=== PATIENT | male | born 1935 | race Caucasian/White ===

== ENCOUNTER 2016-07-13 12:53 | Inpatient (IN) ==
[2016-07-13] MEDS ORDERED: *HR* Heparin 5,000 UNIT/ML VIAL IVP ONE (14:05)
[2016-07-13] MEDS ORDERED: *HR* Heparin 5,000 UNIT/ML VIAL IVP PRN ×2 (14:05)
[2016-07-13 14:24] LABS: Hematocrit 36.8 % (37.5-50.1); Hemoglobin 12.5 g/dL (12.9-16.9); Mean Corpuscular Hemoglobin 28.5 pg (28.0-33.3); Mean Platelet Volume 9.5 fL (9.4-12.4); Platelet Count 230 K/mcL (140-400); Red Blood Count 4.38 M/mcL (4.19-5.50); Red Cell Distribution Width 13.4 % (11.5-14.5)
[2016-07-13] MEDS: Heparin 25,000 UNIT/500 ML D5W 25,000 UNIT/500 ML MLS IVC SCH (14:26)
[2016-07-13 14:30] LABS: INR 1.1; Prothrombin Time 12.2 Seconds (9.4-12.1)
[2016-07-13 14:33] LABS: Activated Partial Thrombo Time 30.8 Seconds (26.0-36.0)
--- NOTE | 2016-07-13 14:42 | Emergency Department Note ---
Disposition Clinical Impression: Left ventricular thrombus Disposition: Admitted As Inpatient Condition: Good General Adult HPI - General Chief complaint: ED Recheck/Abnormal Lab/Rx Stated complaint: Blood clot in heart Time Seen by Provider: 07/13/16 13:46 Source: patient Mode of arrival: EMS Limitations: no limitations Nursing Notes Reviewed: Yes Vital Signs Reviewed: Yes - History of Present Illness HPI Narrative: 80-year-old male presents to the ER with a chief complaint of abnormal echocardiogram. Patient reports that at the end of last year he was having some heartburn sensation and his correspondence school instructor had him perform a stress test. reports that was abnormal so that prompted an echocardiogram as well as a heart catheterization. Patient had that done in April without stent placement. He reports today he was having a repeat echocardiogram. At that time the patient was told that he had a clot in his heart and was going to be transferred here for admission. Patient reports that he has been short of breath but this is not outside of his normal for the last year. He denies any chest pain. No recent illnesses. He is not on any anticoagulation. He takes a daily aspirin. He denies any recent bleeding. No other complaints. 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 Denies: chest pain, cough, nausea/vomiting Treatments Prior to Arrival: none - Related Data Home Medications Medication Instructions Recorded Confirmed Esomeprazole Magnesium [Nexium] 40 mg PO DAILY PRN 05/07/15 07/13/16 Finasteride [Proscar] 5 mg PO DAILY 05/07/15 07/13/16 Gluc/Minh-MSM#1/C/Mac/Hima/Bor 1 each PO BID 05/07/15 07/13/16 [Osteo Bi-Flex Caplet] Insulin ASPART [NovoLOG] 7 - 12 unit SQ TIDAC 05/07/15 07/13/16 Insulin Glargine,Hum.rec.anlog 47 unit SQ HS 05/07/15 07/13/16 [Lantus Solostar] Lisinopril-HCTZ 20-12.5 [Prinzide 1 each PO BID 05/07/15 07/13/16 20-12.5] Metoprolol XL (24 HR) Succ [Toprol 25 mg PO DAILY 05/07/15 07/13/16 Xl] Tamsulosin [Flomax] 0.8 mg PO DAILY 05/07/15 07/13/16 Aspirin Enteric Coated [Aspirin EC] 81 mg PO DAILY 07/13/16 07/13/16 Multivitamin [Multi-Day Vitamins] 1 each PO DAILY 07/13/16 07/13/16 Polyethylene Glycol 3350 17 gm PO DAILY 07/13/16 07/13/16 [Smoothlax] Previous Rx's Medication Instructions Recorded Isosorbide MONOnitrate (24 HR) 30 mg PO DAILY tab.er.24h 05/07/15 [Imdur] Nitroglycerin 0.4 mg SL Q5MIN PRN #0 tab.subl 05/07/15 Warfarin [Coumadin] 5 mg PO DAILY@1800 #30 tablet 07/18/16 Allergies Allergy/AdvReac Type Severity Reaction Status Date / Time ceftriaxone [From Rocephin] AdvReac Hives Verified 04/29/15 10:16 simvastatin AdvReac Muscle Pain Verified 05/07/15 07:36 All systems ED: reviewed and negative except as stated. Constitutional: Denies: fever Cardiovascular: Denies: chest pain Respiratory: Reports: dyspnea. Denies: cough Gastrointestinal: Denies: abdominal pain, nausea, vomiting Musculoskeletal: Denies: back pain, neck pain Past Medical History - Past Medical History Attestation: Yes The following information was validated with the patient. Source: patient Medical history: Reports: diabetes, hyperlipidemia, hypertension, myocardial infarction Surgical history: Reports: cholecystectomy Psychiatric history: Reports: no psych history - Social History Smoking Status: Former smoker Smokeless Tobacco Status: No Alcohol use: Reports: none Drug use: Reports: none Physical Exam - General Limitations: no limitations General appearance: alert, in no apparent distress - Head Head exam: atraumatic, normocephalic, normal inspection - Eye Eye exam: Present: normal appearance, EOMI - ENT ENT exam: normal exam - Neck Neck exam: Present: normal inspection - Chest Chest inspection: Present: normal inspection, symmetric chest wall rise - Respiratory Respiratory exam: Present: normal lung sounds bilaterally - Cardiovascular Cardiovascular exam: Present: regular rate, normal rhythm, normal heart sounds - Abdominal Exam Abdominal exam: Present: soft, Non-Tender. Absent: tenderness - Extremities Exam Extremities exam: Present: normal inspection, full ROM - Expanded Upper Extremity Exam Shoulder exam: Present: normal inspection, full ROM Arm exam: Present: normal inspection, full ROM Elbow exam: Present: normal inspection, full ROM Forearm/Wrist exam: Present: normal inspection, full ROM Hand exam: Present: normal inspection, full ROM - Expanded Lower Extremity Exam Hip/Pelvis exam: Present: normal inspection, full ROM Upper leg exam: Present: normal inspection, full ROM Knee exam: Present: normal inspection, full ROM Lower leg exam: Present: normal inspection, full ROM Ankle exam: Present: normal inspection, full ROM Foot/toe exam: Present: normal inspection, full ROM - Neurological Exam Neurological exam: Present: alert - Psychiatric Psychiatric exam: Present: normal affect, normal mood - Skin Skin exam: Present: warm, dry, intact, normal color Course Course Narrative: Patient seen and examined. Vital signs reviewed. We will get an EKG, speak with cardiology and likely initiate a heparin drip. - Consultations Consultation #1: Case discussed with the on-call correspondence school instructor Dr. Vazquez. Discussed patient's recent echocardiogram and EKG. He reports to place the patient on a heparin drip and admit to the hospitalist service. They Will see the patient in consultation. Vital Signs Temperature 97.7 F 07/13/16 12:58 Pulse Rate 76 07/13/16 12:58 Respiratory Rate 16 07/13/16 12:58 Blood Pressure 154/81 07/13/16 12:58 O2 Sat by Pulse Oximetry 98 07/13/16 12:58 Temperature 98.2 F 07/18/16 08:14 Pulse Rate 56 07/18/16 08:14 Respiratory Rate 18 07/18/16 08:14 Blood Pressure 114/53 07/18/16 08:14 O2 Sat by Pulse Oximetry 96 07/18/16 08:14 Oxygen Delivery Oxygen Delivery Room Air Medical Decision Making - MDM Narrative Medical decision making narrative: 80-year-old male presents to the ER after abnormal outpatient echocardiogram. Patient was sent here after they found a thrombus in his left ventricle. He denies any history of hypercoagulable state. He is not on any anticoagulation. He reports shortness of breath which is chronic. EKG here is sinus rhythm. I discussed the case with cardiology. Patient placed on a heparin drip and admitted to the hospitalist service. - Lab Data Lab results reviewed: Yes I reviewed the patient's lab results. Result diagrams: 07/18/16 06:28 07/18/16 06:28 Lab Results 07/13/16 07/13/16 07/13/16 Range/Units 13:27 14:18 14:18 WBC 8.2 (4.3-11.1) K/mcL RBC 4.38 (4.19-5.50) M/mcL Hgb 12.5 L (12.9-16.9) g/dL Hct 36.8 L (37.5-50.1) % MCV 84.0 (83.0-100.0) fL MCH 28.5 (28.0-33.3) pg MCHC 34.0 (31.6-35.5) g/dL RDW 13.4 (11.5-14.5) % Plt Count 230 (140-400) K/mcL MPV 9.5 (9.4-12.4) fL Immature Gran % (0-4) % Seg Neutrophils % % Lymphocytes % % Monocytes % % Eosinophils % % Basophils % % Neutrophils # (1.6-8.9) K/mcL Lymphocytes # (0.6-4.6) K/mcL Monocytes # (0.0-1.3) K/mcL Eosinophils # (0.0-0.6) K/mcL Basophils # (0.0-0.2) K/mcL Immature Plt Fraction (1.1-6.1) % PT 12.2 H (9.4-12.1) Seconds INR 1.1 APTT 30.8 (26.0-36.0) Seconds Sodium (136-145) mEq/L Potassium (3.5-4.5) mEq/L Chloride (98-109) mEq/L Carbon Dioxide (19-29) mEq/L BUN (8-26) mg/dL Creatinine (0.72-1.25) mg/dL Est GFR ( Amer) (> 60) Est GFR (Non-Af Amer) (> 60) BUN/Creatinine Ratio (6-26) Glucose (70-99) mg/dL POC Glucose 226 H (58-89) Est Mean Plasma Glucose mg/dl Hemoglobin A1c ( - 5.6) % Calculated Osmolality (280-300) Calcium (8.6-10.8) mg/dL Magnesium (1.6-2.6) mg/dL Urine Color (Yellow) Urine Clarity (Clear) Urine pH (5.0-8.0) pH Units Ur Specific [place] (1.010-1.025) Urine Protein (Neg-Trace) mg/dL Urine Glucose (UA) (Normal) mg/dL Urine Ketones (Negative) mg/dL Urine Blood (Negative) Urine Nitrite (Negative) Urine Bilirubin (Negative) Urine Urobilinogen (Normal) mg/dL Ur Leukocyte Esterase (Negative) Urine Microscopic RBC (0-3) per hpf Urine Microscopic WBC (0-3) per hpf Ur Squamous Epith Cells (None-Few) per lpf Urine Bacteria (None-Few) per hpf Hyaline Casts (None-Few) per lpf Ur Culture Indicated? (NO) Blood Type Antibody Screen 07/13/16 07/13/16 07/13/16 Range/Units 18:24 21:22 21:33 WBC (4.3-11.1) K/mcL RBC (4.19-5.50) M/mcL Hgb (12.9-16.9) g/dL Hct (37.5-50.1) % MCV (83.0-100.0) fL MCH (28.0-33.3) pg MCHC (31.6-35.5) g/dL RDW (11.5-14.5) % Plt Count (140-400) K/mcL MPV (9.4-12.4) fL Immature Gran % (0-4) % Seg Neutrophils % % Lymphocytes % % Monocytes % % Eosinophils % % Basophils % % Neutrophils # (1.6-8.9) K/mcL Lymphocytes # (0.6-4.6) K/mcL Monocytes # (0.0-1.3) K/mcL Eosinophils # (0.0-0.6) K/mcL Basophils # (0.0-0.2) K/mcL Immature Plt Fraction (1.1-6.1) % PT (9.4-12.1) Seconds INR APTT 40.5 H (26.0-36.0) Seconds Sodium (136-145) mEq/L Potassium (3.5-4.5) mEq/L Chloride (98-109) mEq/L Carbon Dioxide (19-29) mEq/L BUN (8-26) mg/dL Creatinine (0.72-1.25) mg/dL Est GFR ( Amer) (> 60) Est GFR (Non-Af Amer) (> 60) BUN/Creatinine Ratio (6-26) Glucose (70-99) mg/dL POC Glucose 256 H 259 H (58-89) Est Mean Plasma Glucose mg/dl Hemoglobin A1c ( - 5.6) % Calculated Osmolality (280-300) Calcium (8.6-10.8) mg/dL Magnesium (1.6-2.6) mg/dL Urine Color (Yellow) Urine Clarity (Clear) Urine pH (5.0-8.0) pH Units Ur Specific [place] (1.010-1.025) Urine Protein (Neg-Trace) mg/dL Urine Glucose (UA) (Normal) mg/dL Urine Ketones (Negative) mg/dL Urine Blood (Negative) Urine Nitrite (Negative) Urine Bilirubin (Negative) Urine Urobilinogen (Normal) mg/dL Ur Leukocyte Esterase (Negative) Urine Microscopic RBC (0-3) per hpf Urine Microscopic WBC (0-3) per hpf Ur Squamous Epith Cells (None-Few) per lpf Urine Bacteria (None-Few) per hpf Hyaline Casts (None-Few) per lpf Ur Culture Indicated? (NO) Blood Type Antibody Screen 07/13/16 07/14/16 07/14/16 Range/Units 21:33 02:29 05:44 WBC 10.6 (4.3-11.1) K/mcL RBC 4.54 (4.19-5.50) M/mcL Hgb 13.1 (12.9-16.9) g/dL Hct 38.1 (37.5-50.1) % MCV 83.9 (83.0-100.0) fL MCH 28.9 (28.0-33.3) pg MCHC 34.4 (31.6-35.5) g/dL RDW 13.5 (11.5-14.5) % Plt Count 233 (140-400) K/mcL MPV 10.2 (9.4-12.4) fL Immature Gran % 0.4 (0-4) % Seg Neutrophils % 80.2 % Lymphocytes % 9.3 % Monocytes % 8.0 % Eosinophils % 1.4 % Basophils % 0.7 % Neutrophils # 8.5 (1.6-8.9) K/mcL Lymphocytes # 1.0 (0.6-4.6) K/mcL Monocytes # 0.9 (0.0-1.3) K/mcL Eosinophils # 0.2 (0.0-0.6) K/mcL Basophils # 0.1 (0.0-0.2) K/mcL Immature Plt Fraction (1.1-6.1) % PT (9.4-12.1) Seconds INR APTT (26.0-36.0) Seconds Sodium (136-145) mEq/L Potassium (3.5-4.5) mEq/L Chloride (98-109) mEq/L Carbon Dioxide (19-29) mEq/L BUN (8-26) mg/dL Creatinine (0.72-1.25) mg/dL Est GFR ( Amer) (> 60) Est GFR (Non-Af Amer) (> 60) BUN/Creatinine Ratio (6-26) Glucose (70-99) mg/dL POC Glucose (58-89) Est Mean Plasma Glucose 160 mg/dl Hemoglobin A1c 7.2 H ( - 5.6) % Calculated Osmolality (280-300) Calcium (8.6-10.8) mg/dL Magnesium (1.6-2.6) mg/dL Urine Color Yellow (Yellow) Urine Clarity Turbid A (Clear) Urine pH 7.0 (5.0-8.0) pH Units Ur Specific [place] 1.009 L (1.010-1.025) Urine Protein Trace (Neg-Trace) mg/dL Urine Glucose (UA) 250 H (Normal) mg/dL Urine Ketones Negative (Negative) mg/dL Urine Blood Moderate H (Negative) Urine Nitrite Negative (Negative) Urine Bilirubin Negative (Negative) Urine Urobilinogen Normal (Normal) mg/dL Ur Leukocyte Esterase Large H (Negative) Urine Microscopic RBC TNTC H (0-3) per hpf Urine Microscopic WBC TNTC H (0-3) per hpf Ur Squamous Epith Cells None Seen (None-Few) per lpf Urine Bacteria Moderate H (None-Few) per hpf Hyaline Casts None Seen (None-Few) per lpf Ur Culture Indicated? YES A (NO) Blood Type Antibody Screen 07/14/16 07/14/16 07/14/16 Range/Units 05:44 05:44 07:12 WBC (4.3-11.1) K/mcL RBC (4.19-5.50) M/mcL Hgb (12.9-16.9) g/dL Hct (37.5-50.1) % MCV (83.0-100.0) fL MCH (28.0-33.3) pg MCHC (31.6-35.5) g/dL RDW (11.5-14.5) % Plt Count (140-400) K/mcL MPV (9.4-12.4) fL Immature Gran % (0-4) % Seg Neutrophils % % Lymphocytes % % Monocytes % % Eosinophils % % Basophils % % Neutrophils # (1.6-8.9) K/mcL Lymphocytes # (0.6-4.6) K/mcL Monocytes # (0.0-1.3) K/mcL Eosinophils # (0.0-0.6) K/mcL Basophils # (0.0-0.2) K/mcL Immature Plt Fraction (1.1-6.1) % PT (9.4-12.1) Seconds INR APTT 63.9 H D (26.0-36.0) Seconds Sodium 129 L (136-145) mEq/L Potassium 3.8 (3.5-4.5) mEq/L Chloride 96 L (98-109) mEq/L Carbon Dioxide 20 (19-29) mEq/L BUN 11 (8-26) mg/dL Creatinine 1.00 (0.72-1.25) mg/dL Est GFR ( Amer) > 60 (> 60) Est GFR (Non-Af Amer) > 60 (> 60) BUN/Creatinine Ratio 11 (6-26) Glucose 217 H (70-99) mg/dL POC Glucose 189 H (58-89) Est Mean Plasma Glucose mg/dl Hemoglobin A1c ( - 5.6) % Calculated Osmolality 274 L (280-300) Calcium 9.5 (8.6-10.8) mg/dL Magnesium 1.5 L (1.6-2.6) mg/dL Urine Color (Yellow) Urine Clarity (Clear) Urine pH (5.0-8.0) pH Units Ur Specific [place] (1.010-1.025) Urine Protein (Neg-Trace) mg/dL Urine Glucose (UA) (Normal) mg/dL Urine Ketones (Negative) mg/dL Urine Blood (Negative) Urine Nitrite (Negative) Urine Bilirubin (Negative) Urine Urobilinogen (Normal) mg/dL Ur Leukocyte Esterase (Negative) Urine Microscopic RBC (0-3) per hpf Urine Microscopic WBC (0-3) per hpf Ur Squamous Epith Cells (None-Few) per lpf Urine Bacteria (None-Few) per hpf Hyaline Casts (None-Few) per lpf Ur Culture Indicated? (NO) Blood Type Antibody Screen 07/14/16 07/14/16 07/14/16 Range/Units 11:03 11:11 16:37 WBC (4.3-11.1) K/mcL RBC (4.19-5.50) M/mcL Hgb (12.9-16.9) g/dL Hct (37.5-50.1) % MCV (83.0-100.0) fL MCH (28.0-33.3) pg MCHC (31.6-35.5) g/dL RDW (11.5-14.5) % Plt Count (140-400) K/mcL MPV (9.4-12.4) fL Immature Gran % (0-4) % Seg Neutrophils % % Lymphocytes % % Monocytes % % Eosinophils % % Basophils % % Neutrophils # (1.6-8.9) K/mcL Lymphocytes # (0.6-4.6) K/mcL Monocytes # (0.0-1.3) K/mcL Eosinophils # (0.0-0.6) K/mcL Basophils # (0.0-0.2) K/mcL Immature Plt Fraction (1.1-6.1) % PT (9.4-12.1) Seconds INR APTT 63.3 H (26.0-36.0) Seconds Sodium (136-145) mEq/L Potassium (3.5-4.5) mEq/L Chloride (98-109) mEq/L Carbon Dioxide (19-29) mEq/L BUN (8-26) mg/dL Creatinine (0.72-1.25) mg/dL Est GFR ( Amer) (> 60) Est GFR (Non-Af Amer) (> 60) BUN/Creatinine Ratio (6-26) Glucose (70-99) mg/dL POC Glucose 202 H 256 H (58-89) Est Mean Plasma Glucose mg/dl Hemoglobin A1c ( - 5.6) % Calculated Osmolality (280-300) Calcium (8.6-10.8) mg/dL Magnesium (1.6-2.6) mg/dL Urine Color (Yellow) Urine Clarity (Clear) Urine pH (5.0-8.0) pH Units Ur Specific [place] (1.010-1.025) Urine Protein (Neg-Trace) mg/dL Urine Glucose (UA) (Normal) mg/dL Urine Ketones (Negative) mg/dL Urine Blood (Negative) Urine Nitrite (Negative) Urine Bilirubin (Negative) Urine Urobilinogen (Normal) mg/dL Ur Leukocyte Esterase (Negative) Urine Microscopic RBC (0-3) per hpf Urine Microscopic WBC (0-3) per hpf Ur Squamous Epith Cells (None-Few) per lpf Urine Bacteria (None-Few) per hpf Hyaline Casts (None-Few) per lpf Ur Culture Indicated? (NO) Blood Type Antibody Screen 07/14/16 07/14/16 07/14/16 Range/Units 21:31 22:11 22:11 WBC 8.5 (4.3-11.1) K/mcL RBC 4.47 (4.19-5.50) M/mcL Hgb 12.9 (12.9-16.9) g/dL Hct 36.9 L (37.5-50.1) % MCV 82.6 L (83.0-100.0) fL MCH 28.9 (28.0-33.3) pg MCHC 35.0 (31.6-35.5) g/dL RDW 13.3 (11.5-14.5) % Plt Count 248 (140-400) K/mcL MPV 10.0 (9.4-12.4) fL Immature Gran % 0.4 (0-4) % Seg Neutrophils % 68.1 % Lymphocytes % 16.9 % Monocytes % 9.8 % Eosinophils % 4.1 % Basophils % 0.7 % Neutrophils # 5.8 (1.6-8.9) K/mcL Lymphocytes # 1.4 (0.6-4.6) K/mcL Monocytes # 0.8 (0.0-1.3) K/mcL Eosinophils # 0.4 (0.0-0.6) K/mcL Basophils # 0.1 (0.0-0.2) K/mcL Immature Plt Fraction 3.0 (1.1-6.1) % PT (9.4-12.1) Seconds INR APTT 54.5 H (26.0-36.0) Seconds Sodium (136-145) mEq/L Potassium (3.5-4.5) mEq/L Chloride (98-109) mEq/L Carbon Dioxide (19-29) mEq/L BUN (8-26) mg/dL Creatinine (0.72-1.25) mg/dL Est GFR ( Amer) (> 60) Est GFR (Non-Af Amer) (> 60) BUN/Creatinine Ratio (6-26) Glucose (70-99) mg/dL POC Glucose 309 H (58-89) Est Mean Plasma Glucose mg/dl Hemoglobin A1c ( - 5.6) % Calculated Osmolality (280-300) Calcium (8.6-10.8) mg/dL Magnesium (1.6-2.6) mg/dL Urine Color (Yellow) Urine Clarity (Clear) Urine pH (5.0-8.0) pH Units Ur Specific [place] (1.010-1.025) Urine Protein (Neg-Trace) mg/dL Urine Glucose (UA) (Normal) mg/dL Urine Ketones (Negative) mg/dL Urine Blood (Negative) Urine Nitrite (Negative) Urine Bilirubin (Negative) Urine Urobilinogen (Normal) mg/dL Ur Leukocyte Esterase (Negative) Urine Microscopic RBC (0-3) per hpf Urine Microscopic WBC (0-3) per hpf Ur Squamous Epith Cells (None-Few) per lpf Urine Bacteria (None-Few) per hpf Hyaline Casts (None-Few) per lpf Ur Culture Indicated? (NO) Blood Type Antibody Screen 07/15/16 07/15/16 07/15/16 Range/Units 00:23 00:23 00:23 WBC (4.3-11.1) K/mcL RBC (4.19-5.50) M/mcL Hgb (12.9-16.9) g/dL Hct (37.5-50.1) % MCV (83.0-100.0) fL MCH (28.0-33.3) pg MCHC (31.6-35.5) g/dL RDW (11.5-14.5) % Plt Count (140-400) K/mcL MPV (9.4-12.4) fL Immature Gran % (0-4) % Seg Neutrophils % % Lymphocytes % % Monocytes % % Eosinophils % % Basophils % % Neutrophils # (1.6-8.9) K/mcL Lymphocytes # (0.6-4.6) K/mcL Monocytes # (0.0-1.3) K/mcL Eosinophils # (0.0-0.6) K/mcL Basophils # (0.0-0.2) K/mcL Immature Plt Fraction (1.1-6.1) % PT 12.9 H (9.4-12.1) Seconds INR 1.2 APTT 30.3 (26.0-36.0) Seconds Sodium (136-145) mEq/L Potassium (3.5-4.5) mEq/L Chloride (98-109) mEq/L Carbon Dioxide (19-29) mEq/L BUN (8-26) mg/dL Creatinine (0.72-1.25) mg/dL Est GFR ( Amer) (> 60) Est GFR (Non-Af Amer) (> 60) BUN/Creatinine Ratio (6-26) Glucose (70-99) mg/dL POC Glucose (58-89) Est Mean Plasma Glucose mg/dl Hemoglobin A1c ( - 5.6) % Calculated Osmolality (280-300) Calcium (8.6-10.8) mg/dL Magnesium (1.6-2.6) mg/dL Urine Color (Yellow) Urine Clarity (Clear) Urine pH (5.0-8.0) pH Units Ur Specific [place] (1.010-1.025) Urine Protein (Neg-Trace) mg/dL Urine Glucose (UA) (Normal) mg/dL Urine Ketones (Negative) mg/dL Urine Blood (Negative) Urine Nitrite (Negative) Urine Bilirubin (Negative) Urine Urobilinogen (Normal) mg/dL Ur Leukocyte Esterase (Negative) Urine Microscopic RBC (0-3) per hpf Urine Microscopic WBC (0-3) per hpf Ur Squamous Epith Cells (None-Few) per lpf Urine Bacteria (None-Few) per hpf Hyaline Casts (None-Few) per lpf Ur Culture Indicated? (NO) Blood Type O POSITIVE Antibody Screen NEGATIVE 07/15/16 07/15/16 07/15/16 Range/Units 06:27 07:38 12:07 WBC (4.3-11.1) K/mcL RBC (4.19-5.50) M/mcL Hgb (12.9-16.9) g/dL Hct (37.5-50.1) % MCV (83.0-100.0) fL MCH (28.0-33.3) pg MCHC (31.6-35.5) g/dL RDW (11.5-14.5) % Plt Count (140-400) K/mcL MPV (9.4-12.4) fL Immature Gran % (0-4) % Seg Neutrophils % % Lymphocytes % % Monocytes % % Eosinophils % % Basophils % % Neutrophils # (1.6-8.9) K/mcL Lymphocytes # (0.6-4.6) K/mcL Monocytes # (0.0-1.3) K/mcL Eosinophils # (0.0-0.6) K/mcL Basophils # (0.0-0.2) K/mcL Immature Plt Fraction (1.1-6.1) % PT (9.4-12.1) Seconds INR APTT 53.3 H D (26.0-36.0) Seconds Sodium (136-145) mEq/L Potassium (3.5-4.5) mEq/L Chloride (98-109) mEq/L Carbon Dioxide (19-29) mEq/L BUN (8-26) mg/dL Creatinine (0.72-1.25) mg/dL Est GFR ( Amer) (> 60) Est GFR (Non-Af Amer) (> 60) BUN/Creatinine Ratio (6-26) Glucose (70-99) mg/dL POC Glucose 157 H 266 H (58-89) Est Mean Plasma Glucose mg/dl Hemoglobin A1c ( - 5.6) % Calculated Osmolality (280-300) Calcium (8.6-10.8) mg/dL Magnesium (1.6-2.6) mg/dL Urine Color (Yellow) Urine Clarity (Clear) Urine pH (5.0-8.0) pH Units Ur Specific [place] (1.010-1.025) Urine Protein (Neg-Trace) mg/dL Urine Glucose (UA) (Normal) mg/dL Urine Ketones (Negative) mg/dL Urine Blood (Negative) Urine Nitrite (Negative) Urine Bilirubin (Negative) Urine Urobilinogen (Normal) mg/dL Ur Leukocyte Esterase (Negative) Urine Microscopic RBC (0-3) per hpf Urine Microscopic WBC (0-3) per hpf Ur Squamous Epith Cells (None-Few) per lpf Urine Bacteria (None-Few) per hpf Hyaline Casts (None-Few) per lpf Ur Culture Indicated? (NO) Blood Type Antibody Screen - Radiology Data Radiology results reviewed: Yes I reviewed the patient's radiology results. - EKG Data EKG #1 EKG attestation: Yes I reviewed and interpreted this EKG. EKG results narrative: EKG demonstrated normal sinus rhythm with first-degree AV block with a rate of 65 bpm. Left axis deviation. MN interval to 50 QRS duration 122 QTC 426 T wave inversions in lead 1. T-wave flattening in lead V6. No ST elevations or depressions. No acute ischemic findings. No significant changes from previous EKG dated 11/17/07 [facility] - [facility] Situation: Demographics, MOA Background: Presenting Complaint, Relevant PMH, Meds, & Allergies Assessment: Vital Signs, Course and respsone to treatment, Exam Concerns, Patient/Family Expectation, Pertinant Lab Results, Outstanding Labs Recommendation: Barrier(s) to disposition, Recommendation based on pending studies, treatments, or consults [facility] Report Given to: Dr. Mac Attestation Statement - Attestation Attestation: I examined this patient and my medical decision-making was reviewed with the Resident Physician. I agree with the documented findings, disposition and treatment plan as described.
[2016-07-13] MEDS ORDERED: Acetaminophen 325 MG TABLET PO PRN (20:09)
[2016-07-13] MEDS ORDERED: Naloxone 0.4 MG/ML INJ IVP PRN (20:09)
[2016-07-13] MEDS ORDERED: Nitroglycerin 0.4 MG TAB.SUBL SL PRN (20:15)
[2016-07-13] MEDS ORDERED: *HR* Dextrose 50 % in Water (Syg) 50 ML SYRINGE IVP PRN (20:17)
[2016-07-13] MEDS ORDERED: Dextrose Gel 15 GM PO PRN ×2 (20:17)
[2016-07-13] MEDS ORDERED: D5% in Water 1,000 ML IVC PRN (20:17)
--- NOTE | 2016-07-13 20:38 | Internal Med History&Physical ---
Date of Encounter: 07/13/16 Time of Encounter: 19:40 Assessment and Plan (1) Left ventricular thrombus Current visit: Yes Status: Acute 1. Pt on heparin drip per protocol. 2. Will need some form of chronic anticoagulation. 3. Consult Cardiology for guidance. 4. Patient and family report a few episodes of falling and stumbling gait -- consult PT/OT to assess fall risk. (2) CAD (coronary artery disease) Current visit: Yes Status: Chronic 1. Continue home meds as appropriate. 2. No current symptoms. 3. Monitor on telemetry. Qualifiers: Coronary Disease-Associated Artery/Lesion type: [place] artery [place] vs. transplanted heart: [place] heart Associated angina: without angina Qualified Code(s): I25.10 - Atherosclerotic heart disease of [place] coronary artery without angina pectoris (3) IDDM (insulin dependent diabetes mellitus) Current visit: Yes Status: Chronic 1. Continue home basal insulin and SSI. 2. Monitor glucose and adjust dose accordingly. (4) DVT prophylaxis Current visit: Yes Status: Acute 1. On heparin drip per protocol. Internal Medicine - H&P: HPI Chief complaint: abnormal ECHO Admitted From: Emergency Dept Plans for Post Hospital Care: Home History of present illness: Mr. Livingston is a 80 year old male who presented to the ER tonight per the direction of cardiology. He had a limited echocardiogram done today as an outpatient to evaluate his left ventricular ejection fraction. He was noted to have a left ventricular thrombus. These results were called to the director supply on-call who then referred patient to the ER for evaluation and admission. He was subsequently admitted to the hospitalist service. Upon my assessment of the patient, he is asymptomatic. He denies any chest pain , shortness of breath, edema, palpitations, or syncope. He has a long-standing history of coronary artery disease and ischemic cardiomyopathy. He denies any blood loss, particularly GI blood loss. He does have a stumbling gait and has fallen a few times according to family and patient. He has never severely injured himself, however. Given that he is going to require chronic anti- coagulation, I ordered a consult to PT/OT to evaluate him for fall risk. Past Med Surg Social Fam HX - Past Medical History Attestation: Yes The following information was validated with the patient. Source: patient, old records reviewed, obtained from family Medical history: diabetes, hyperlipidemia, hypertension, myocardial infarction Psychiatric history: no psych history - Past Surgical History Surgical History: cholecystectomy, herniorrhaphy - Social History Smoking Status: Former smoker Smokeless Tobacco Status: No Alcohol use: none Drug use: none Current living situation: Home, With Family - Family History Father Adopted: No Living Status: Hx Family Cardiac Disorders: Yes Hx Family Respiratory Disorders: No Hx Family Cancer: Yes Hx Family Genitourinary Disorders: No Hx Family Endocrine Disorder: No Hx Family Musculoskeletal Disorders: No Hx Family Neuromuscular Disorders: No Hx Family Neurologic Disorders: No Hx Family HEENT Disorders: No Hx Family Autoimmune Disorders: No Hx Family Reproductive Disorders: No Hx Family Psychosocial Disorders: No Hx Family Medical Disorders: No Internal Medicine - H&P: Meds Esomeprazole Magnesium [Nexium] 40 mg PO DAILY PRN 05/07/15 [History] Finasteride [Proscar] 5 mg PO DAILY 05/07/15 [History] Gluc/Minh-MSM#1/C/Mac/Hima/Bor [Osteo Bi-Flex Caplet] 1 each PO BID 05/07/15 [ History] Insulin ASPART [NovoLOG] 7 - 12 unit SQ TIDAC 05/07/15 [History] Insulin Glargine,Hum.rec.anlog [Lantus Solostar] 47 unit SQ HS 05/07/15 [History ] Isosorbide MONOnitrate (24 HR) [Imdur] 30 mg PO DAILY tab.er.24h 05/07/15 [Rx] Lisinopril-HCTZ 20-12.5 [Prinzide 20-12.5] 1 each PO BID 05/07/15 [History] Metoprolol XL (24 HR) Succ [Toprol Xl] 25 mg PO DAILY 05/07/15 [History] Nitroglycerin 0.4 mg SL Q5MIN PRN #0 tab.subl 05/07/15 [Rx] Tamsulosin [Flomax] 0.8 mg PO DAILY 05/07/15 [History] Aspirin Enteric Coated [Aspirin EC] 81 mg PO DAILY 07/13/16 [History] Multivitamin [Multi-Day Vitamins] 1 each PO DAILY 07/13/16 [History] Polyethylene Glycol 3350 [Smoothlax] 17 gm PO DAILY 07/13/16 [History] Allergies ceftriaxone [From Rocephin] Adverse Reaction (Verified 04/29/15 10:16) Hives simvastatin Adverse Reaction (Verified 05/07/15 07:36) Muscle Pain - Constitutional Constitutional: no chills, no fever(s), no night sweats - EENT Eyes: no blurry vision, no change in vision Ears: no ear pain, no tinnitus Nose, mouth and throat: no nasal congestion, no sinus pain, no sinus pressure, no sore throat - Cardiovascular Cardiovascular ROS IM: no chest pain, no dyspnea, no dyspnea on exertion, no edema, no lightheadedness, no palpitations, no syncope - Respiratory Respiratory: no cough, no dyspnea, no hemoptysis, no wheezing, no chest congestion - Gastrointestinal Gastrointestinal: no abdominal pain, no diarrhea, no hematemesis, no hematochezia, no melena, no vomiting - Genitourinary Genitourinary ROS male: no dysuria, no flank pain, no hematuria - Musculoskeletal Musculoskeletal ROS IM: arthralgias, back pain - Integumentary Integumentary IM: no rash - Neurological Neurological ROS: frequent falls, no dizziness, no focal weakness, no headache(s ), no numbness, no paresthesias, no weakness - Psychiatric Psychiatric: no anxiety, no depression - Endocrine Endocrine IM: no polydipsia, no polyuria - Hematologic/Lymphatic Hematologic/Lymphatic: no easy bruising, no lymphadenopathy - Allergic/Immunologic Allergic/Immunologic: no wheezing, no GI upset with certain foods - Constitutional Vitals: Temp Pulse Resp BP Pulse Ox 97.4 F L 71 16 174/82 98 07/13/16 18:07 07/13/16 18:07 07/13/16 18:07 07/13/16 18:07 07/13/16 18:27 General appearance: Present: cooperative, A&O X 3, pleasant, no acute distress - Head Head exam: Present: atraumatic, normal inspection - Expanded Head Exam Head exam expanded: Absent: abrasion, contusion - Eye Eye exam: Present: EOMI, normal appearance, PERRL. Absent: scleral icterus Pupils: Present: normal accommodation - ENT ENT exam: Present: mucous membranes moist, normal exam - Neck Neck exam general surgery: Present: full ROM, normal inspection, supple. Absent : lymphadenopathy, tenderness - Respiratory Respiratory exam: Present: CTAB. Absent: chest wall tenderness, rales, respiratory distress, rhonchi, wheezes - Cardiovascular Cardiovascular exam: Present: RRR, +S1, +S2. Absent: diastolic murmur, JVD, systolic murmur - GI/Abdominal GI/Abdominal exam: Present: normal bowel sounds. Absent: guarding, hepatomegaly , mass, pulsatile mass, rebound, splenomegaly, tenderness - Extremities Exam Extremities exam: Present: full ROM, normal capillary refill, warm, radial pulses palpable and symetrical. Absent: calf tenderness, pedal edema, tenderness - Back Exam Back exam: Present: normal inspection. Absent: CVA tenderness (L), CVA tenderness (R) - Neurological Exam Neurological exam: Present: alert, CN II-XII intact, oriented X3, no focal deficits, strengths equal and symetr throughout - Psychiatric Psychiatric exam: Present: normal affect, normal mood - Skin Skin exam: Present: dry, warm. Absent: rash Internal Med - H&P Results - Labs CBC & Chem 7: 07/13/16 14:18 - EKG Data -: EKG Interpreted by Myself - EKG Data Prior EKG available for review: yes When compared to previous EKG: there is no significant change EKG comments: 07/13/16 20:51 Old anterolateral AK - VTE Reasons for not Prescribing Prophylaxis: Not indicated-Anticoagulated or INR therapeutic
[2016-07-13] MEDS: Lisinopril-HCTZ 20-12.5mg TABLET PO SCH (22:12)
[2016-07-13] MEDS: Insulin DETEMIR 100 UNIT/ML X5UNITS SQ SCH (22:12)
[2016-07-13] MEDS: (Gluc/Chon-Msm#1/C/Mang/Bos/Bor [Osteo Bi-Flex Caplet PO SCH (22:13)
[2016-07-13 22:21] LABS: Hemoglobin A1C 7.2 %
[2016-07-14 02:37] LABS: Bilirubin,Urine Negative (Negative); Blood,Urine Moderate (Negative); Clarity,Urine Turbid (Clear); Color,Urine Yellow (Yellow); Glucose,Urine (UA) 250 mg/dL (Normal); Ketones,Urine Negative (Negative); Leukocyte Esterase,Urine Large (Negative); Nitrite,Urine Negative (Negative); Protein,Urine Trace mg/dL (Neg-Trace); Specific Gravity,Urine 1.009 (1.010-1.025); Urobilinogen,Urine Normal (Normal)
[2016-07-14 02:39] LABS: Bacteria,Urine Moderate per hpf (None-Few); Hyaline Casts,Urine None Seen per lpf (None-Few); RBC,Urine TNTC per hpf (0-3); Squamous Epithelial Cell,Urine None Seen per lpf (None-Few); WBC,Urine TNTC per hpf (0-3)
[2016-07-14 06:15] LABS: Basophils # 0.1 K/mcL (0.0-0.2); Basophils % 0.7 %; Eosinophils # 0.2 K/mcL (0.0-0.6); Eosinophils % 1.4 %; Hematocrit 38.1 % (37.5-50.1); Hemoglobin 13.1 g/dL (12.9-16.9); Immature Granulocytes % 0.4 % (0-4); Lymphocytes % 9.3 %; Mean Corpuscular HGB Conc 34.4 g/dL (31.6-35.5); Mean Corpuscular Hemoglobin 28.9 pg (28.0-33.3); Mean Corpuscular Volume 83.9 fL (83.0-100.0); Mean Platelet Volume 10.2 fL (9.4-12.4); Monocytes # 0.9 K/mcL (0.0-1.3); Neutrophils # 8.5 K/mcL (1.6-8.9); Platelet Count 233 K/mcL (140-400); Red Blood Count 4.54 M/mcL (4.19-5.50); Red Cell Distribution Width 13.5 % (11.5-14.5); Segmented Neutrophils % 80.2 %
[2016-07-14 06:31] LABS: BUN/Creatinine Ratio 11 (6-26); Blood Urea Nitrogen 11 mg/dL (8-26); Calcium 9.5 mg/dL (8.6-10.8); Carbon Dioxide 20 mEq/L (19-29); Chloride 96 mEq/L (98-109); Glucose 217 mg/dL (70-99); Magnesium 1.5 mg/dL (1.6-2.6); Osmolality,Calculated 274 (280-300); Potassium 3.8 mEq/L (3.5-4.5); Sodium 129 mEq/L (136-145); eGFR For African Americans > 60 (> 60); eGFR For Non-African Americans > 60 (> 60)
[2016-07-14] MEDS: Lisinopril-HCTZ 20-12.5mg TABLET PO SCH ×2 (08:15→20:57)
[2016-07-14] MEDS: Insulin LISPRO 300 UNITS/3 ML VIAL SQ SCH ×4 (08:15→23:02)
[2016-07-14] MEDS: Piperacillin/Tazobactam 3.375 GM in D5% in Water (Mini-Bag+) 100 ML IVPB SCH ×2 (08:16→18:07)
[2016-07-14] MEDS: Multivit/Ca/Min/Fe/FA 1 TAB TABLET PO SCH (08:16)
[2016-07-14] MEDS: Isosorbide MONOnitrate (24 HR) 30 MG TAB.ER.24H PO SCH (08:16)
[2016-07-14] MEDS: Aspirin Enteric Coated 81 MG Tablet PO SCH (08:16)
[2016-07-14] MEDS: Metoprolol XL (24 HR) Succ 25 MG TAB.ER.24H PO SCH (08:16)
[2016-07-14] MEDS: Finasteride 5 MG TABLET PO SCH (08:16)
[2016-07-14] MEDS: (Gluc/Chon-Msm#1/C/Mang/Bos/Bor [Osteo Bi-Flex Caplet PO SCH ×2 (08:36→23:46)
--- NOTE | 2016-07-14 08:53 | Cardiology Consult Note ---
Date of Encounter: 07/14/16 Time of Encounter: 09:10 Assessment and Plan (1) Left ventricular thrombus Current Visit: Yes Status: Acute Scheduled for outpatient echocardiogram on 07/13/16, was found to have LV apical thrombus; he was then recommended ED evaluation. Recommend long-term anticoagulation with coumadin therapy; will need heparin to coumadin bridge. Goal INR 2-3. Coumadin to start tonight, order placed for pharmacy to dose. Patient and are agreeable to plan, will start referral to [facility], patient to be seen at [facility]. (2) Systolic CHF Current Visit: Yes Status: Chronic Hx of systolic CHF. TTE 06/29/15: EF 35-40%, repeat echo yesterday showed LVEF 30-35%. Appears euvolemic upon exam. Continue medical therapy including betablocker and ACEi. CHF guidelines emphasized including low sodium/fluid restriction diet and importance of daily weights. Will need re-evaluation of LVEF in 3 months to determine if ICD evaluation warranted. 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 Continue medical therapy including asa, betablocker, ACEi, and nitrates. He has a hx of statin intolerance. Qualifiers: Coronary Disease-Associated Artery/Lesion type: [place] artery [place] vs. transplanted heart: [place] heart Associated angina: without angina Qualified Code(s): I25.10 - Atherosclerotic heart disease of [place] coronary artery without angina pectoris Discussion w patient/family: The assessment and plan as outlined above was discussed with the patient and/or family members who expressed understanding and agreement. All questions were answered. Thank you for involving us in the care of your patient. Please call with any questions. The patient will be discussed and reviewed with Dr. Vazquez; changes to be made accordingly. History of Present Illness Consult date: 07/14/16 Requesting physician: Rob Logan Consult reason: LV apical thrombus Chief complaint: Dyspnea History of present illness: Mr. Livingston is a 80 year old male with PMH significant for CAD s/p PCI, chronic systolic CHF, DMII, HTN, and HLD who presented to the ED due to LV apical thrombus identified on outpatient TTE. Findings were discussed with patient by myself (after discussion with Dr. Damon) and he was recommended to proceed to ED for initiation of heparin therapy to bridge with coumadin. He reports TTE was ordered by Dr. Casillas for dyspnea--however has been chronic over the past several years. He denied any new CV complaints. UA suggestive of UTI--on ATB. 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 Medical therapy was recommended TTE 07/09/15: Moderate LV systolic dysfunction, LVEF 35-40% with regional wall motion abnormalities, mild biatrial enlargement, the apical anterior, mid anterior, apical septal, mid inferior septal, apical lateral and mid anterior septal [place] were hypokinetic, the apex and apical inferior [place] were akinetic. TTE 07/13/16: LVEF 30-35%, LV apical thrombus, mild asymmetric LV basal septal hypertrophy, normal RV structure and function; apical anterior, mid anterior, apical lateral and mid anterior septal [place] were hypokinetic; apex, apical inferior, apical septal, and mid septal [place] were akinetic Past Med Surg Social Fam HX - Past Medical History Medical history: coronary artery disease, diabetes, hyperlipidemia, hypertension , myocardial infarction Psychiatric history: no psych history - Past Surgical History Surgical History: cholecystectomy, herniorrhaphy - Social History Smoking Status: Former smoker Smokeless Tobacco Status: No Alcohol use: none Drug use: none - Family History Father Adopted: No Living Status: Hx Family Cardiac Disorders: Yes Hx Family Respiratory Disorders: No Hx Family Cancer: Yes Hx Family Genitourinary Disorders: No Hx Family Endocrine Disorder: No Hx Family Musculoskeletal Disorders: No Hx Family Neuromuscular Disorders: No Hx Family Neurologic Disorders: No Hx Family HEENT Disorders: No Hx Family Autoimmune Disorders: No Hx Family Reproductive Disorders: No Hx Family Psychosocial Disorders: No Hx Family Medical Disorders: No Medications and Allergies Esomeprazole Magnesium [Nexium] 40 mg PO DAILY PRN 05/07/15 [History] Finasteride [Proscar] 5 mg PO DAILY 05/07/15 [History] Gluc/Minh-MSM#1/C/Mac/Hima/Bor [Osteo Bi-Flex Caplet] 1 each PO BID 05/07/15 [ History] Insulin ASPART [NovoLOG] 7 - 12 unit SQ TIDAC 05/07/15 [History] Insulin Glargine,Hum.rec.anlog [Lantus Solostar] 47 unit SQ HS 05/07/15 [History ] Isosorbide MONOnitrate (24 HR) [Imdur] 30 mg PO DAILY tab.er.24h 05/07/15 [Rx] Lisinopril-HCTZ 20-12.5 [Prinzide 20-12.5] 1 each PO BID 05/07/15 [History] Metoprolol XL (24 HR) Succ [Toprol Xl] 25 mg PO DAILY 05/07/15 [History] Nitroglycerin 0.4 mg SL Q5MIN PRN #0 tab.subl 05/07/15 [Rx] Tamsulosin [Flomax] 0.8 mg PO DAILY 05/07/15 [History] Aspirin Enteric Coated [Aspirin EC] 81 mg PO DAILY 07/13/16 [History] Multivitamin [Multi-Day Vitamins] 1 each PO DAILY 07/13/16 [History] Polyethylene Glycol 3350 [Smoothlax] 17 gm PO DAILY 07/13/16 [History] Allergies ceftriaxone [From Rocephin] Adverse Reaction (Verified 04/29/15 10:16) Hives simvastatin Adverse Reaction (Verified 05/07/15 07:36) Muscle Pain All Systems Review: A 10-system review of systems was performed and is negative for pertinent findings except as documented above in the HPI. - Cardiovascular Cardiovascular: as per HPI Physical Examination Vital Signs, Last 4 Hours Temp Pulse Resp BP Pulse Ox 07/14/16 08:37 97 07/14/16 07:15 97.5 F L 61 18 137/78 97 General: Conversant HEENT: Atraumatic, Normocephaly Lungs: Normal Breath Sounds Neuro: Alert and responsive Abdomen: Soft Skin: No rashes noted on visualized skin Extremities: No Edema, Normal Pulses Results 07/14/16 05:44 07/14/16 05:44 Lab Results 07/13/16 07/14/16 07/14/16 21:33 05:44 05:44 WBC 10.6 Hgb 13.1 Hct 38.1 Plt Count 233 APTT 40.5 H Sodium 129 L Potassium 3.8 Chloride 96 L Carbon Dioxide 20 BUN 11 Creatinine 1.00 Glucose 217 H Calcium 9.5 Magnesium 1.5 L 07/14/16 05:44 WBC Hgb Hct Plt Count APTT 63.9 H D Sodium Potassium Chloride Carbon Dioxide BUN Creatinine Glucose Calcium Magnesium Active Medications Acetaminophen (Tylenol) 650 mg PO Q6HR PRN PRN Reason: Mild Pain (1-3) Stop: 01/12/17 20:10 Aspirin (Aspirin Ec) 81 mg PO DAILY [place] Stop: 01/13/17 09:01 Last Admin: 07/14/16 08:16 Dose: 81 mg Dextrose/Water (Dextrose 50% (Syg)) 25 ml IVP AD PRN PRN Reason: Hypoglycemia Stop: 01/12/17 20:18 Docusate Sodium (Colace) 100 mg PO BID PRN PRN Reason: Constipation Stop: 01/12/17 20:10 Last Admin: 07/14/16 00:27 Dose: 100 mg Finasteride (Proscar) 5 mg PO DAILY [place] PRN Reason: Protocol Stop: 01/13/17 09:01 Last Admin: 07/14/16 08:16 Dose: 5 mg Lisinopril/HCTZ (Prinzide 20-12.5) 1 each PO BID [place] Stop: 01/12/17 21:01 Last Admin: 07/14/16 08:15 Dose: 1 each Heparin Sodium (Porcine) (Heparin) 4,000 unit IVP Q6HR PRN PRN Reason: SEE COMMENTS Stop: 01/12/17 14:06 Last Admin: 07/13/16 22:21 Dose: 4,000 unit Heparin Sodium (Porcine) (Heparin) 2,000 unit IVP Q6H PRN PRN Reason: SEE COMMENTS Stop: 01/12/17 14:06 Heparin Sodium/Dextrose (Heparin 25,000 Unit/500 Ml D5w) 25,000 unit in 500 mls @ 19.996 mls/hr IVC .Q24H [place]; 10.7 UNIT/KG/HR PRN Reason: Protocol Stop: 01/12/17 14:16 Last Titration: 07/14/16 06:22 Dose: 14.39 unit/kg/hr, 26.9 mls/hr Dextrose (Dextrose 5%) 1,000 mls @ 100 mls/hr IVC .Q10H PRN PRN Reason: HYPOGLYCEMIA Stop: 01/12/17 20:18 Piperacillin Sod/Tazobactam (Sod 3.375 gm/ Dextrose) 100 mls @ 25 mls/hr IVPB Q8HR [facility] PRN Reason: Protocol Stop: 01/13/17 08:01 Last Admin: 07/14/16 08:16 Dose: 25 mls/hr Insulin Detemir (Levemir) 40 unit SQ HS [facility] Stop: 01/12/17 21:01 Last Admin: 07/13/16 22:12 Dose: 40 unit Insulin Human Lispro (Humalog) 0 units SQ TIDAC [facility] PRN Reason: Protocol Stop: 01/13/17 07:31 Last Admin: 07/14/16 08:15 Dose: 4 units Isosorbide Mononitrate (Imdur) 30 mg PO DAILY [facility] Stop: 01/13/17 09:01 Last Admin: 07/14/16 08:16 Dose: 30 mg Metoprolol Succinate (Toprol Xl) 25 mg PO DAILY [facility] Stop: 01/13/17 09:01 Last Admin: 07/14/16 08:16 Dose: 25 mg Multivitamins/Calcium (Thera M Plus) 1 tab PO DAILY [facility] Stop: 01/13/17 09:01 Last Admin: 07/14/16 08:16 Dose: 1 tab Naloxone HCl (Narcan) 0.4 mg IVP Q2MIN PRN PRN Reason: Opioid Reversal Stop: 01/12/17 20:10 Nitroglycerin (Nitroglycerin) 0.4 mg SL Q5MIN PRN PRN Reason: Chest Pain Stop: 01/12/17 20:16 Omeprazole (Prilosec) 40 mg PO DAILY PRN PRN Reason: Heartburn Pharmacy Profile Note (Patient Taking Own Medication) 0 each PO BID [facility] Stop: 01/12/17 21:01 Last Admin: 07/14/16 08:36 Dose: Not Given Polyethylene Glycol (Miralax) 17 gm PO DAILY PRN PRN Reason: Constipation Stop: 01/12/17 20:16 Tamsulosin HCl (Flomax) 0.8 mg PO DAILY [facility] PRN Reason: Protocol Stop: 01/13/17 09:01 Last Admin: 07/14/16 08:15 Dose: 0.8 mg Warfarin Sodium (Coumadin Perpt) 1 each PO DAILY@1800 PRN PRN Reason: SEE COMMENTS Stop: 01/13/17 18:01 - Imaging and Cardiology Echo: report reviewed Cardiac cath: report reviewed Other Results: 12 hour tele: avg HR=75 SR. No significant event noted. - EKG Interpretation EKG results cardiology: personally reviewed Consult Discharge Plan - Plan Referrals: Bj Green MD [Primary Care Provider] -
--- NOTE | 2016-07-14 11:14 | Internal Med Progress Note ---
Date of Encounter: 07/14/16 Time of Encounter: 13:01 - Assessment and plan (1) Left ventricular thrombus Current Visit: Yes Status: Acute Assessment and plan: Incidental finding of left ventricular thrombus. Patient has been getting echocardiogram yesterday. At the time of echocardiogram it was realized that patient has a left ventricular thrombus. Patient was sent to emergency room for further evaluation. Patient was hospitalized for intravenous heparin and bridging with Coumadin. Plan: -We will continue intravenous heparin. -We will monitor the labs. -We will introduce Coumadin tonight. -Target INR 1-2. (2) CAD (coronary artery disease) Current Visit: Yes Status: Chronic Assessment and plan: No chest pain. At this point coronary artery disease is stable. We will continue to monitor very closely. Qualifiers: Coronary Disease-Associated Artery/Lesion type: [place] artery [place] vs. transplanted heart: [place] heart Associated angina: without angina Qualified Code(s): I25.10 - Atherosclerotic heart disease of [place] coronary artery without angina pectoris (3) IDDM (insulin dependent diabetes mellitus) Current Visit: Yes Status: Chronic Assessment and plan: Patient is known to have a diabetes mellitus. 4. Diabetes mellitus he takes insulin. We will continue the same home treatment. (4) DVT prophylaxis Current Visit: Yes Status: Acute Assessment and plan: On heparin drip Vital decision making: This patient has a [id number] risk of worsening in terms of cardiac perfusion in spite of being on appropriate treatment. - Subjective Interval history: Patient seen and examined. Chart reviewed. Patient denies any complaint at this point. - Constitutional Vitals: Temp Pulse Resp BP Pulse Ox 97.3 F L 58 16 109/69 97 07/14/16 11:05 07/14/16 11:05 07/14/16 11:05 07/14/16 11:05 07/14/16 11:05 General appearance: Present: cooperative, A&O X 3, pleasant, no acute distress - Head Head exam: Present: atraumatic, normocephalic - Eye Eye exam: Present: PERRL, conjuntiva pink, sclera anicteric Pupils: Present: PERRL - Neck Neck exam general surgery: Present: supple, trachea midline. Absent: lymphadenopathy - Respiratory Respiratory exam: Present: CTAB. Absent: accessory muscle use, rales, rhonchi, wheezes - Cardiovascular Cardiovascular exam: Present: RRR, +S1, +S2. Absent: diastolic murmur, gallop, rubs, systolic murmur - GI/Abdominal GI/Abdominal exam: Present: normal bowel sounds, soft, no peritoneal signs. Absent: distended, tenderness - Extremities Exam Extremities exam: Present: warm, radial pulses palpable and symetrical. Absent : calf tenderness, cyanotic, pedal edema - Neurological Exam Neurological exam: Present: CN II-XII intact, oriented X3, no focal deficits. Absent: pronater drift, facial droop, speech deficit - Skin Skin exam: Present: dry, intact Internal Medicine: Result - Labs CBC & Chem 7: 07/14/16 05:44 07/14/16 05:44 Labs: Short CBC 07/14/16 Range/Units 05:44 WBC 10.6 (4.3-11.1) K/mcL Hgb 13.1 (12.9-16.9) g/dL Hct 38.1 (37.5-50.1) % Plt Count 233 (140-400) K/mcL Neutrophils # 8.5 (1.6-8.9) K/mcL BMP 07/14/16 05:44 Sodium 129 L Potassium 3.8 Chloride 96 L Carbon Dioxide 20 BUN 11 Creatinine 1.00 Glucose 217 H Calcium 9.5 Urine 07/14/16 Range/Units 02:29 Urine Color Yellow (Yellow) Urine Clarity Turbid A (Clear) Urine pH 7.0 (5.0-8.0) pH Units Ur Specific [place] 1.009 L (1.010-1.025) Urine Protein Trace (Neg-Trace) mg/dL Urine Glucose (UA) 250 H (Normal) mg/dL - ABG Interpretation ABG results: PT/INR, D-dimer PT 12.2 Seconds (9.4-12.1) H 07/13/16 14:18 - VTE Reasons for not Prescribing Prophylaxis: Not indicated-Anticoagulated or INR therapeutic Consult Discharge Plan - Plan Referrals: Bj Green MD [Primary Care Provider] -
[2016-07-14] MEDS: Heparin 25,000 UNIT/500 ML D5W 25,000 UNIT/500 ML MLS IVC SCH (11:34)
[2016-07-14] MEDS ORDERED: Warfarin perPT PO PRN (18:00)
--- NOTE | 2016-07-14 18:07 | Electrocardiograph Report ---
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
[2016-07-14] MEDS: *HR* Warfarin 5 MG TABLET PO SCH (18:08)
[2016-07-14 22:26] LABS: Basophils # 0.1 K/mcL (0.0-0.2); Basophils % 0.7 %; Eosinophils # 0.4 K/mcL (0.0-0.6); Eosinophils % 4.1 %; Hematocrit 36.9 % (37.5-50.1); Hemoglobin 12.9 g/dL (12.9-16.9); Immature Granulocytes % 0.4 % (0-4); Lymphocytes # 1.4 K/mcL (0.6-4.6); Lymphocytes % 16.9 %; Mean Corpuscular Hemoglobin 28.9 pg (28.0-33.3); Mean Corpuscular Volume 82.6 fL (83.0-100.0); Monocytes # 0.8 K/mcL (0.0-1.3); Monocytes % 9.8 %; Neutrophils # 5.8 K/mcL (1.6-8.9); Platelet Count 248 K/mcL (140-400); Red Blood Count 4.47 M/mcL (4.19-5.50); Red Cell Distribution Width 13.3 % (11.5-14.5); Segmented Neutrophils % 68.1 %
[2016-07-14] MEDS: Insulin DETEMIR 100 UNIT/ML X5UNITS SQ SCH (23:02)
[2016-07-15] MEDS: Piperacillin/Tazobactam 3.375 GM in D5% in Water (Mini-Bag+) 100 ML IVPB SCH ×4 (00:12→23:10)
[2016-07-15 00:59] LABS: INR 1.2; Prothrombin Time 12.9 Seconds (9.4-12.1)
--- NOTE | 2016-07-15 06:39 | Electrocardiograph Report ---
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
[2016-07-15] MEDS: Aspirin Enteric Coated 81 MG Tablet PO SCH (08:57)
[2016-07-15] MEDS: Finasteride 5 MG TABLET PO SCH (08:58)
[2016-07-15] MEDS: Metoprolol XL (24 HR) Succ 25 MG TAB.ER.24H PO SCH (08:58)
[2016-07-15] MEDS: Lisinopril-HCTZ 20-12.5mg TABLET PO SCH ×2 (08:58→19:57)
[2016-07-15] MEDS: Insulin LISPRO 300 UNITS/3 ML VIAL SQ SCH ×4 (08:58→20:37)
[2016-07-15] MEDS: Multivit/Ca/Min/Fe/FA 1 TAB TABLET PO SCH (08:58)
[2016-07-15] MEDS: Isosorbide MONOnitrate (24 HR) 30 MG TAB.ER.24H PO SCH (08:58)
[2016-07-15] MEDS: (Gluc/Chon-Msm#1/C/Mang/Bos/Bor [Osteo Bi-Flex Caplet PO SCH ×2 (09:00→19:54)
[2016-07-15] MEDS ORDERED: *HR* Heparin 5,000 UNIT/ML VIAL IVP PRN ×2 (12:22)
--- NOTE | 2016-07-15 12:39 | Event Note ---
Date of Encounter: 07/15/16 Time of Encounter: 12:30 - Cardiology Event Note Referral completed for Coumadin Clinic. Initial appointment must be at [place] location. First appointment: July 20, 2016 at 1:00 PM in [facility]. All appointments thereafter will be in [place]. Goal INR 2-3. Recommend heparin bridge until INR therapeutic. No further inpatient recommendations.
[2016-07-15 14:57] LABS: Hematocrit 33.7 % (37.5-50.1); Hemoglobin 11.9 g/dL (12.9-16.9); Mean Corpuscular HGB Conc 35.3 g/dL (31.6-35.5); Mean Corpuscular Hemoglobin 28.8 pg (28.0-33.3); Mean Corpuscular Volume 81.6 fL (83.0-100.0); Mean Platelet Volume 9.8 fL (9.4-12.4); Platelet Count 221 K/mcL (140-400); Red Blood Count 4.13 M/mcL (4.19-5.50); Red Cell Distribution Width 13.3 % (11.5-14.5)
[2016-07-15 15:01] LABS: INR 1.3; Prothrombin Time 13.8 Seconds (9.4-12.1)
[2016-07-15 15:04] LABS: Activated Partial Thrombo Time 61.6 Seconds (26.0-36.0)
[2016-07-15] MEDS: Heparin 25,000 UNIT/500 ML D5W 25,000 UNIT/500 ML MLS IVC SCH ×2 (16:58→23:09)
[2016-07-15] MEDS: *HR* Warfarin 5 MG TABLET PO SCH (17:04)
--- NOTE | 2016-07-15 17:10 | Internal Med Progress Note ---
Date of Encounter: 07/15/16 Time of Encounter: 17:00 - Assessment and plan (1) Left ventricular thrombus Current Visit: Yes Status: Acute Assessment and plan: Incidental finding of left ventricular thrombus. Patient has been getting echocardiogram yesterday. At the time of echocardiogram it was realized that patient has a left ventricular thrombus. Patient was sent to emergency room for further evaluation. Patient was hospitalized for intravenous heparin and bridging with Coumadin. Plan: -We will continue intravenous heparin. -We will monitor the labs. -We will introduce Coumadin tonight. -Target INR 2-3. 07/15/2016 Patient is on Coumadin. Activity in therapeutic range. INR is 1.3. We will continue monitoring Target INR 2-3 (2) CAD (coronary artery disease) Current Visit: Yes Status: Chronic Assessment and plan: No chest pain. At this point coronary artery disease is stable. We will continue to monitor very closely. Qualifiers: Coronary Disease-Associated Artery/Lesion type: [place] artery [place] vs. transplanted heart: [place] heart Associated angina: without angina Qualified Code(s): I25.10 - Atherosclerotic heart disease of [place] coronary artery without angina pectoris (3) IDDM (insulin dependent diabetes mellitus) Current Visit: Yes Status: Chronic Assessment and plan: Patient is known to have a diabetes mellitus. 4. Diabetes mellitus he takes insulin. We will continue the same home treatment. (4) DVT prophylaxis Current Visit: Yes Status: Acute Assessment and plan: On heparin drip Vital decision making: This patient has a [id number] risk of worsening in terms of cardiac perfusion in spite of being on appropriate treatment. - Subjective Interval history: Patient seen and examined. Chart reviewed. Patient denies any complaint at this point. 07/15/2016 Patient seen and examined. Chart reviewed. Patient does not have any complaint at this point. - Constitutional Vitals: Temp Pulse Resp BP Pulse Ox 98.7 F 54 17 121/53 97 07/15/16 07:00 07/15/16 07:00 07/15/16 07:00 07/15/16 07:00 07/15/16 09:17 General appearance: Present: cooperative, A&O X 3, pleasant, no acute distress - Head Head exam: Present: atraumatic, normocephalic - Eye Eye exam: Present: PERRL, conjuntiva pink, sclera anicteric Pupils: Present: PERRL - Neck Neck exam general surgery: Present: supple, trachea midline. Absent: lymphadenopathy - Respiratory Respiratory exam: Present: CTAB. Absent: accessory muscle use, rales, rhonchi, wheezes - Cardiovascular Cardiovascular exam: Present: RRR, +S1, +S2. Absent: diastolic murmur, gallop, rubs, systolic murmur - GI/Abdominal GI/Abdominal exam: Present: normal bowel sounds, soft, no peritoneal signs. Absent: distended, tenderness - Extremities Exam Extremities exam: Present: warm, radial pulses palpable and symetrical. Absent : calf tenderness, cyanotic, pedal edema - Neurological Exam Neurological exam: Present: CN II-XII intact, oriented X3, no focal deficits. Absent: pronater drift, facial droop, speech deficit - Skin Skin exam: Present: dry, intact Internal Medicine: Result - Labs CBC & Chem 7: 07/15/16 14:39 07/14/16 05:44 Labs: Short CBC 07/15/16 Range/Units 14:39 WBC 7.7 (4.3-11.1) K/mcL Hgb 11.9 L (12.9-16.9) g/dL Hct 33.7 L (37.5-50.1) % Plt Count 221 (140-400) K/mcL - ABG Interpretation ABG results: PT/INR, D-dimer PT 13.8 Seconds (9.4-12.1) H 07/15/16 14:39 - VTE Reasons for not Prescribing Prophylaxis: Not indicated-Anticoagulated or INR therapeutic Consult Discharge Plan - Plan Referrals: Bj Green MD [Primary Care Provider] - Teto Casillas MD [Partnered Physician] - 07/29/16 10:30 am
[2016-07-15] MEDS: Insulin DETEMIR 100 UNIT/ML X5UNITS SQ SCH (19:55)
[2016-07-16 05:08] LABS: INR 1.4; Prothrombin Time 14.7 Seconds (9.4-12.1)
[2016-07-16] MEDS: Insulin LISPRO 300 UNITS/3 ML VIAL SQ SCH ×4 (08:15→21:34)
[2016-07-16] MEDS: Metoprolol XL (24 HR) Succ 25 MG TAB.ER.24H PO SCH (08:15)
[2016-07-16] MEDS: Finasteride 5 MG TABLET PO SCH (08:15)
[2016-07-16] MEDS: Multivit/Ca/Min/Fe/FA 1 TAB TABLET PO SCH (08:15)
[2016-07-16] MEDS: Isosorbide MONOnitrate (24 HR) 30 MG TAB.ER.24H PO SCH (08:15)
[2016-07-16] MEDS: Aspirin Enteric Coated 81 MG Tablet PO SCH (08:15)
[2016-07-16] MEDS: Lisinopril-HCTZ 20-12.5mg TABLET PO SCH ×2 (08:15→20:30)
[2016-07-16] MEDS: Piperacillin/Tazobactam 3.375 GM in D5% in Water (Mini-Bag+) 100 ML IVPB SCH ×2 (08:16→16:51)
[2016-07-16] MEDS: (Gluc/Chon-Msm#1/C/Mang/Bos/Bor [Osteo Bi-Flex Caplet PO SCH ×2 (12:16→20:29)
[2016-07-16] MEDS: Heparin 25,000 UNIT/500 ML D5W 25,000 UNIT/500 ML MLS IVC SCH (16:50)
[2016-07-16] MEDS: *HR* Warfarin 5 MG TABLET PO SCH (16:51)
--- NOTE | 2016-07-16 17:20 | Internal Med Progress Note ---
Date of Encounter: 07/16/16 Time of Encounter: 17:18 - Assessment and plan (1) Left ventricular thrombus Current Visit: Yes Status: Acute Assessment and plan: Incidental finding of left ventricular thrombus. Patient has been getting echocardiogram yesterday. At the time of echocardiogram it was realized that patient has a left ventricular thrombus. Patient was sent to emergency room for further evaluation. Patient was hospitalized for intravenous heparin and bridging with Coumadin. Plan: -We will continue intravenous heparin. -We will monitor the labs. -We will introduce Coumadin tonight. -Target INR 2-3. 07/15/2016 Patient is on Coumadin. Activity in therapeutic range. INR is 1.3. We will continue monitoring Target INR 2-3 07/16/2016 Patient is on Coumadin. INR is 1.4. We will continue monitoring. Target INR 2-3 (2) CAD (coronary artery disease) Current Visit: Yes Status: Chronic Assessment and plan: No chest pain. At this point coronary artery disease is stable. We will continue to monitor very closely. Qualifiers: Coronary Disease-Associated Artery/Lesion type: [place] artery [place] vs. transplanted heart: [place] heart Associated angina: without angina Qualified Code(s): I25.10 - Atherosclerotic heart disease of [place] coronary artery without angina pectoris (3) IDDM (insulin dependent diabetes mellitus) Current Visit: Yes Status: Chronic Assessment and plan: Patient is known to have a diabetes mellitus. 4. Diabetes mellitus he takes insulin. We will continue the same home treatment. (4) DVT prophylaxis Current Visit: Yes Status: Acute Assessment and plan: On heparin drip Vital decision making: This patient has a [id number]-[id number] risk of worsening in terms of cardiac perfusion in spite of being on appropriate treatment. - Subjective Interval history: Patient seen and examined. Chart reviewed. Patient denies any complaint at this point. 07/15/2016 Patient seen and examined. Chart reviewed. Patient does not have any complaint at this point. 07/16/2016 Patient seen and examined. Chart reviewed. No new complaints. - Constitutional Vitals: Temp Pulse Resp BP Pulse Ox 97.7 F 57 16 117/65 97 07/16/16 05:15 07/16/16 15:00 07/16/16 15:00 07/16/16 15:00 07/16/16 15:00 General appearance: Present: cooperative, A&O X 3, pleasant, no acute distress - Head Head exam: Present: atraumatic, normocephalic - Eye Eye exam: Present: PERRL, conjuntiva pink, sclera anicteric Pupils: Present: PERRL - Neck Neck exam general surgery: Present: supple, trachea midline. Absent: lymphadenopathy - Respiratory Respiratory exam: Present: CTAB. Absent: accessory muscle use, rales, rhonchi, wheezes - Cardiovascular Cardiovascular exam: Present: RRR, +S1, +S2. Absent: diastolic murmur, gallop, rubs, systolic murmur - GI/Abdominal GI/Abdominal exam: Present: normal bowel sounds, soft, no peritoneal signs. Absent: distended, tenderness - Extremities Exam Extremities exam: Present: warm, radial pulses palpable and symetrical. Absent : calf tenderness, cyanotic, pedal edema - Neurological Exam Neurological exam: Present: CN II-XII intact, oriented X3, no focal deficits. Absent: pronater drift, facial droop, speech deficit - Skin Skin exam: Present: dry, intact Internal Medicine: Result - Labs CBC & Chem 7: 07/15/16 14:39 07/14/16 05:44 - ABG Interpretation ABG results: PT/INR, D-dimer PT 14.7 Seconds (9.4-12.1) H 07/16/16 04:55 - VTE Reasons for not Prescribing Prophylaxis: Not indicated-Anticoagulated or INR therapeutic Consult Discharge Plan - Plan Referrals: Bj Green MD [Primary Care Provider] - Teto Casillas MD [Partnered Physician] - 07/29/16 10:30 am
[2016-07-16] MEDS: Insulin DETEMIR 100 UNIT/ML X5UNITS SQ SCH (20:30)
[2016-07-17 04:43] LABS: INR 1.8; Prothrombin Time 19.5 Seconds (9.4-12.1)
[2016-07-17 04:45] LABS: Basophils # 0.1 K/mcL (0.0-0.2); Basophils % 0.8 %; Eosinophils # 0.7 K/mcL (0.0-0.6); Eosinophils % 8.6 %; Hematocrit 35.6 % (37.5-50.1); Hemoglobin 12.1 g/dL (12.9-16.9); Immature Granulocytes % 0.7 % (0-4); Lymphocytes # 1.4 K/mcL (0.6-4.6); Lymphocytes % 16.9 %; Mean Corpuscular Volume 82.4 fL (83.0-100.0); Mean Platelet Volume 9.9 fL (9.4-12.4); Monocytes # 0.9 K/mcL (0.0-1.3); Monocytes % 11.1 %; Neutrophils # 5.2 K/mcL (1.6-8.9); Platelet Count 221 K/mcL (140-400); Red Blood Count 4.32 M/mcL (4.19-5.50); Red Cell Distribution Width 13.4 % (11.5-14.5); Segmented Neutrophils % 61.9 %
[2016-07-17 05:02] LABS: Alanine Aminotransferase 16 Units/L (0-55); Albumin 3.2 g/dL (3.5-5.0); Albumin/Globulin Ratio 0.9 (1.1-2.2); Alkaline Phosphatase 61 Units/L (38-126); Aspartate Amino Transferase 16 Units/L (5-34); BUN/Creatinine Ratio 13 (6-26); Bilirubin,Total 0.7 mg/dL (0.2-1.2); Blood Urea Nitrogen 15 mg/dL (8-26); Calcium 9.6 mg/dL (8.6-10.8); Carbon Dioxide 23 mEq/L (19-29); Chloride 94 mEq/L (98-109); Globulin 3.6 g/dL (2.4-3.5); Glucose 170 mg/dL (70-99); Osmolality,Calculated 273 (280-300); Potassium 3.7 mEq/L (3.5-4.5); Sodium 129 mEq/L (136-145); Total Protein 6.8 g/dL (6.0-8.3); eGFR For African Americans > 60 (> 60); eGFR For Non-African Americans > 60 (> 60)
--- NOTE | 2016-07-17 08:42 | Internal Med Progress Note ---
Date of Encounter: 07/17/16 Time of Encounter: 08:40 - Assessment and plan (1) Left ventricular thrombus Current Visit: Yes Status: Acute Assessment and plan: Incidental finding of left ventricular thrombus. Patient has been getting echocardiogram yesterday. At the time of echocardiogram it was realized that patient has a left ventricular thrombus. Patient was sent to emergency room for further evaluation. Patient was hospitalized for intravenous heparin and bridging with Coumadin. Plan: -We will continue intravenous heparin. -We will monitor the labs. -We will introduce Coumadin tonight. -Target INR 2-3. 07/15/2016 Patient is on Coumadin. Activity in therapeutic range. INR is 1.3. We will continue monitoring Target INR 2-3 07/16/2016 Patient is on Coumadin. INR is 1.4. We will continue monitoring. Target INR 2-3 07/17/2016. Patient on Coumadin for left ventricular thrombus INR is 1.8. Target INR 2-3 Home soon (2) Urinary tract infection Current Visit: Yes Status: Acute Assessment and plan: Patient's urine is growing gram-positive species. Patient is on Zosyn. day 3 We will continue same medication at this point. Patient denies any dysuria, increased frequency, hesitancy. Patient does have a enlarged prostate. We will continue same medication for now. Qualifiers: Urinary tract infection type: site unspecified Hematuria presence: without hematuria Qualified Code(s): N39.0 - Urinary tract infection, site not specified (3) CAD (coronary artery disease) Current Visit: Yes Status: Chronic Assessment and plan: No chest pain. At this point coronary artery disease is stable. We will continue to monitor very closely. Qualifiers: Coronary Disease-Associated Artery/Lesion type: [place] artery [place] vs. transplanted heart: [place] heart Associated angina: without angina Qualified Code(s): I25.10 - Atherosclerotic heart disease of [place] coronary artery without angina pectoris (4) IDDM (insulin dependent diabetes mellitus) Current Visit: Yes Status: Chronic Assessment and plan: Patient is known to have a diabetes mellitus. 4. Diabetes mellitus he takes insulin. We will continue the same home treatment. (5) DVT prophylaxis Current Visit: Yes Status: Acute Assessment and plan: On heparin drip Vital decision making: This patient has a [id number] risk of worsening in terms of cardiac perfusion in spite of being on appropriate treatment. - Subjective Interval history: Patient seen and examined. Chart reviewed. Patient denies any complaint at this point. 07/15/2016 Patient seen and examined. Chart reviewed. Patient does not have any complaint at this point. 07/16/2016 Patient seen and examined. Chart reviewed. No new complaints. 07/17/2016 Patient seen and examined. Chart reviewed. patient denies dysuria, increased frequency or hesitancy. - Constitutional Vitals: Temp Pulse Resp BP Pulse Ox 97.8 F 54 18 129/88 97 07/17/16 07:55 07/17/16 07:55 07/17/16 07:55 07/17/16 07:55 07/17/16 08:00 General appearance: Present: cooperative, A&O X 3, pleasant, no acute distress - Head Head exam: Present: atraumatic, normocephalic - Eye Eye exam: Present: PERRL, conjuntiva pink, sclera anicteric Pupils: Present: PERRL - Neck Neck exam general surgery: Present: supple, trachea midline. Absent: lymphadenopathy - Respiratory Respiratory exam: Present: CTAB. Absent: accessory muscle use, rales, rhonchi, wheezes - Cardiovascular Cardiovascular exam: Present: RRR, +S1, +S2. Absent: diastolic murmur, gallop, rubs, systolic murmur - GI/Abdominal GI/Abdominal exam: Present: normal bowel sounds, soft, no peritoneal signs. Absent: distended, tenderness - Extremities Exam Extremities exam: Present: warm, radial pulses palpable and symetrical. Absent : calf tenderness, cyanotic, pedal edema - Neurological Exam Neurological exam: Present: CN II-XII intact, oriented X3, no focal deficits. Absent: pronater drift, facial droop, speech deficit - Skin Skin exam: Present: dry, intact Internal Medicine: Result - Labs CBC & Chem 7: 07/17/16 03:47 07/17/16 03:47 Labs: Short CBC 07/17/16 Range/Units 03:47 WBC 8.4 (4.3-11.1) K/mcL Hgb 12.1 L (12.9-16.9) g/dL Hct 35.6 L (37.5-50.1) % Plt Count 221 (140-400) K/mcL Neutrophils # 5.2 (1.6-8.9) K/mcL BMP 07/17/16 03:47 Sodium 129 L Potassium 3.7 Chloride 94 L Carbon Dioxide 23 BUN 15 Creatinine 1.13 Glucose 170 H Calcium 9.6 Liver Function 07/17/16 Range/Units 03:47 Total Bilirubin 0.7 (0.2-1.2) mg/dL AST 16 (5-34) Units/L ALT 16 (0-55) Units/L Alkaline Phosphatase 61 (38-126) Units/L Albumin 3.2 L (3.5-5.0) g/dL - ABG Interpretation ABG results: PT/INR, D-dimer PT 19.5 Seconds (9.4-12.1) H 07/17/16 03:47 - VTE Reasons for not Prescribing Prophylaxis: Not indicated-Anticoagulated or INR therapeutic Consult Discharge Plan - Plan Referrals: Bj Green MD [Primary Care Provider] - Teto Casillas MD [Partnered Physician] - 07/29/16 10:30 am
[2016-07-17] MEDS: Heparin 25,000 UNIT/500 ML D5W 25,000 UNIT/500 ML MLS IVC SCH ×2 (08:55→10:54)
[2016-07-17] MEDS: (Gluc/Chon-Msm#1/C/Mang/Bos/Bor [Osteo Bi-Flex Caplet PO SCH ×2 (08:56→22:11)
[2016-07-17] MEDS: Lisinopril-HCTZ 20-12.5mg TABLET PO SCH ×2 (09:09→22:13)
[2016-07-17] MEDS: Metoprolol XL (24 HR) Succ 25 MG TAB.ER.24H PO SCH (09:09)
[2016-07-17] MEDS: Multivit/Ca/Min/Fe/FA 1 TAB TABLET PO SCH (09:09)
[2016-07-17] MEDS: Isosorbide MONOnitrate (24 HR) 30 MG TAB.ER.24H PO SCH (09:09)
[2016-07-17] MEDS: Finasteride 5 MG TABLET PO SCH (09:09)
[2016-07-17] MEDS: Aspirin Enteric Coated 81 MG Tablet PO SCH (09:09)
[2016-07-17] MEDS: Insulin LISPRO 300 UNITS/3 ML VIAL SQ SCH ×4 (09:10→22:11)
[2016-07-17] MEDS: *HR* Warfarin 5 MG TABLET PO SCH (17:38)
[2016-07-17] MEDS: Insulin DETEMIR 100 UNIT/ML X5UNITS SQ SCH (22:12)
[2016-07-18] MEDS: Heparin 25,000 UNIT/500 ML D5W 25,000 UNIT/500 ML MLS IVC SCH (05:09)
[2016-07-18 06:50] LABS: Basophils # 0.1 K/mcL (0.0-0.2); Basophils % 0.8 %; Eosinophils # 0.6 K/mcL (0.0-0.6); Hematocrit 36.8 % (37.5-50.1); Hemoglobin 12.6 g/dL (12.9-16.9); Immature Granulocytes % 0.7 % (0-4); Lymphocytes # 1.3 K/mcL (0.6-4.6); Lymphocytes % 14.6 %; Mean Corpuscular HGB Conc 34.2 g/dL (31.6-35.5); Mean Corpuscular Hemoglobin 28.3 pg (28.0-33.3); Mean Corpuscular Volume 82.7 fL (83.0-100.0); Mean Platelet Volume 9.6 fL (9.4-12.4); Monocytes # 0.9 K/mcL (0.0-1.3); Monocytes % 10.5 %; Neutrophils # 5.7 K/mcL (1.6-8.9); Platelet Count 249 K/mcL (140-400); Red Blood Count 4.45 M/mcL (4.19-5.50); Red Cell Distribution Width 13.4 % (11.5-14.5); Segmented Neutrophils % 66.4 %
[2016-07-18 06:51] LABS: INR 2.2; Prothrombin Time 24.5 Seconds (9.4-12.1)
[2016-07-18 07:07] LABS: Alanine Aminotransferase 24 Units/L (0-55); Albumin 3.5 g/dL (3.5-5.0); Albumin/Globulin Ratio 0.9 (1.1-2.2); Alkaline Phosphatase 69 Units/L (38-126); Aspartate Amino Transferase 22 Units/L (5-34); BUN/Creatinine Ratio 13 (6-26); Bilirubin,Total 0.7 mg/dL (0.2-1.2); Blood Urea Nitrogen 14 mg/dL (8-26); Calcium 9.9 mg/dL (8.6-10.8); Carbon Dioxide 22 mEq/L (19-29); Chloride 94 mEq/L (98-109); Globulin 3.8 g/dL (2.4-3.5); Glucose 148 mg/dL (70-99); Osmolality,Calculated 271 (280-300); Potassium 3.8 mEq/L (3.5-4.5); Sodium 129 mEq/L (136-145); Total Protein 7.3 g/dL (6.0-8.3); eGFR For African Americans > 60 (> 60); eGFR For Non-African Americans > 60 (> 60)
--- NOTE | 2016-07-18 08:24 | Discharge Summary ---
Date of Encounter: 07/18/16 Time of Encounter: 08:21 - Discharge Diagnosis (1) Left ventricular thrombus Priority: Primary Status: Acute (2) Urinary tract infection Priority: Primary Status: Acute Qualifiers: Urinary tract infection type: site unspecified Hematuria presence: without hematuria Qualified Code(s): N39.0 - Urinary tract infection, site not specified (3) CAD (coronary artery disease) Priority: Secondary Status: Chronic Qualifiers: Coronary Disease-Associated Artery/Lesion type: [place] artery [place] vs. transplanted heart: [place] heart Associated angina: without angina Qualified Code(s): I25.10 - Atherosclerotic heart disease of [place] coronary artery without angina pectoris (4) IDDM (insulin dependent diabetes mellitus) Priority: Secondary Status: Chronic (5) DVT prophylaxis Priority: Secondary Status: Acute - Discharge Medications Prescriptions: Warfarin [Coumadin] 5 mg PO DAILY@1800 #30 tablet Home Medications: Esomeprazole Magnesium [Nexium] 40 mg PO DAILY PRN 05/07/15 [History] Finasteride [Proscar] 5 mg PO DAILY 05/07/15 [History] Gluc/Minh-MSM#1/C/Mac/Hima/Bor [Osteo Bi-Flex Caplet] 1 each PO BID 05/07/15 [ History] Insulin ASPART [NovoLOG] 7 - 12 unit SQ TIDAC 05/07/15 [History] Insulin Glargine,Hum.rec.anlog [Lantus Solostar] 47 unit SQ HS 05/07/15 [History ] Isosorbide MONOnitrate (24 HR) [Imdur] 30 mg PO DAILY tab.er.24h 05/07/15 [Rx] Lisinopril-HCTZ 20-12.5 [Prinzide 20-12.5] 1 each PO BID 05/07/15 [History] Metoprolol XL (24 HR) Succ [Toprol Xl] 25 mg PO DAILY 05/07/15 [History] Nitroglycerin 0.4 mg SL Q5MIN PRN #0 tab.subl 05/07/15 [Rx] Tamsulosin [Flomax] 0.8 mg PO DAILY 05/07/15 [History] Aspirin Enteric Coated [Aspirin EC] 81 mg PO DAILY 07/13/16 [History] Multivitamin [Multi-Day Vitamins] 1 each PO DAILY 07/13/16 [History] Polyethylene Glycol 3350 [Smoothlax] 17 gm PO DAILY 07/13/16 [History] Warfarin [Coumadin] 5 mg PO DAILY@1800 #30 tablet 07/18/16 [Rx] Allergies/Adverse Reactions: Allergies ceftriaxone [From Rocephin] Adverse Reaction (Verified 04/29/15 10:16) Hives simvastatin Adverse Reaction (Verified 05/07/15 07:36) Muscle Pain Date of admission: 07/15/16 14:25 Primary care physician: Bj Green MD Discharging clinician: Carlton Tam - Patient Status Disposition: Home, Self-Care Condition: Good Functional capacity at discharge: independent ambulation Overall status at discharge: patient is progressing back to baseline - Discharge Instructions Follow Up With: Bj Green MD [Primary Care Provider] - Teto Casillas MD [Partnered Physician] - 07/29/16 10:30 am Blaine Salinas MD [Partnered Physician] - - Diet and Activity Activity: increase activity as tolerated Diet: diabetic diet Interval History: Mr. Livingston is a 80 year old male who presented to the ER tonight per the direction of cardiology. He had a limited echocardiogram done today as an outpatient to evaluate his left ventricular ejection fraction. He was noted to have a left ventricular thrombus. These results were called to the food service counter clerk on-call who then referred patient to the ER for evaluation and admission. He was subsequently admitted to the hospitalist service.He denies any chest pain, shortness of breath, edema, palpitations, or syncope. He has a long-standing history of coronary artery disease and ischemic cardiomyopathy. He denies any blood loss, particularly GI blood loss. He does have a stumbling gait and has fallen a few times according to family and patient. He has never severely injured himself, Hospital course: Patient was started on heparin drip. His PTT was always therapeutic. Coumadin 5 mg started. Today patient's INR is 2.2. His target INR is between 2 and 3. Patient's urine culture was positive for gram-positive bacteria. She was empirically placed on Zosyn. Patient completed 4 days of Zosyn. Patient has a history of benign prostatic hyperplasia. Plan: -Patient can go home today. Prescription for Coumadin 5 mg per day is given to the patient. -Patient will follow up with his PCP in 1-2 weeks. -Patient will follow up with cardiology in 1-2 weeks. -Patient will follow up with Coumadin clinic for his anticoagulation. -Patient is to follow up with urology regarding this prostate issue. -All of all explained to the patient and his . -At the time of discharge they do not have any questions, comments, updated recommendation suggestion regarding her hospital stay. - Time Spent with Patient Total time spent providing and/or coordinating discharge services: - Constitutional Vitals: Temp Pulse Resp BP Pulse Ox 98.2 F 56 18 114/53 96 07/18/16 08:14 07/18/16 08:14 07/18/16 08:14 07/18/16 08:14 07/18/16 08:14 General appearance: Present: cooperative, A&O X 3, pleasant, no acute distress - Head Head exam: Present: atraumatic, normocephalic - Eye Eye exam: Present: PERRL, conjuntiva pink, sclera anicteric Pupils: Present: PERRL - Neck Neck exam general surgery: Present: supple, trachea midline. Absent: lymphadenopathy - Respiratory Respiratory exam: Present: CTAB. Absent: accessory muscle use, rales, rhonchi, wheezes - Cardiovascular Cardiovascular exam: Present: RRR, +S1, +S2. Absent: diastolic murmur, gallop, rubs, systolic murmur - GI/Abdominal GI/Abdominal exam: Present: normal bowel sounds, soft, no peritoneal signs. Absent: distended, tenderness - Extremities Exam Extremities exam: Present: warm, radial pulses palpable and symetrical. Absent : calf tenderness, cyanotic, pedal edema - Neurological Exam Neurological exam: Present: CN II-XII intact, oriented X3, no focal deficits. Absent: pronater drift, facial droop, speech deficit - Skin Skin exam: Present: dry, intact - VTE Reasons for not Prescribing Prophylaxis: Not indicated-Anticoagulated or INR therapeutic
[2016-07-18] MEDS: (Gluc/Chon-Msm#1/C/Mang/Bos/Bor [Osteo Bi-Flex Caplet PO SCH (09:30)
[2016-07-18] MEDS: Insulin LISPRO 300 UNITS/3 ML VIAL SQ SCH (09:34)
[2016-07-18] MEDS: Finasteride 5 MG TABLET PO SCH (09:42)
[2016-07-18] MEDS: Multivit/Ca/Min/Fe/FA 1 TAB TABLET PO SCH (09:42)
[2016-07-18] MEDS: Isosorbide MONOnitrate (24 HR) 30 MG TAB.ER.24H PO SCH (09:42)
[2016-07-18] MEDS: Aspirin Enteric Coated 81 MG Tablet PO SCH (09:42)
[2016-07-18] MEDS: Lisinopril-HCTZ 20-12.5mg TABLET PO SCH (09:42)
[2016-07-18] MEDS: Metoprolol XL (24 HR) Succ 25 MG TAB.ER.24H PO SCH (09:42)
[2016-07-20 10:27] VITALS: BP 114/53
== END 2016-07-18 10:25 | disposition home or self-care (01) | DRG 311 ==
LOC: EMEROO 12:53 → 2NENU 12:53
PROVIDERS: ADMIT Internal Medicine; ATTEND Internal Medicine

== ENCOUNTER 2018-01-05 17:21 | Inpatient (IN) ==
[2018-01-05 18:26] LABS: Basophils % 0.4 %; Eosinophils # 0.2 K/mcL (0.0-0.6); Hematocrit 37.7 % (37.5-50.1); Hemoglobin 12.7 g/dL (12.9-16.9); Immature Granulocytes % 0.4 % (0-4); Lymphocytes # 0.9 K/mcL (0.6-4.6); Lymphocytes % 11.7 %; Mean Corpuscular HGB Conc 33.7 g/dL (31.6-35.5); Mean Corpuscular Hemoglobin 28.6 pg (28.0-33.3); Mean Corpuscular Volume 84.9 fL (83.0-100.0); Mean Platelet Volume 10.3 fL (9.4-12.4); Monocytes # 0.7 K/mcL (0.0-1.3); Monocytes % 8.5 %; Neutrophils # 6.1 K/mcL (1.6-8.9); Platelet Count 215 K/mcL (140-400); Red Blood Count 4.44 M/mcL (4.19-5.50); Red Cell Distribution Width 14.4 % (11.5-14.5)
[2018-01-05 18:32] LABS: INR 1.9; Prothrombin Time 21.2 Seconds (9.4-12.1)
[2018-01-05] MEDS ORDERED: Nitroglycerin 1 INCH/GM PACKET TP ONE (18:43)
[2018-01-05] MEDS ORDERED: Furosemide 40 MG/4 ML VIAL IVP ONE (18:43)
--- NOTE | 2018-01-05 18:43 | Emergency Department Note ---
Disposition Clinical Impression: Hyponatremia, Hypokalemia Congestive heart failure Qualifiers: Heart failure type: unspecified Heart failure chronicity: acute on chronic Qualified Code(s): I50.9 - Heart failure, unspecified Disposition: Admitted As Inpatient Condition: Fair General Adult HPI - General Chief complaint: ED Shortness of Breath/Dyspnea Stated complaint: DORIAN Time Seen by Provider: 01/05/18 17:29 Source: patient Limitations: no limitations Nursing Notes Reviewed: Yes Vital Signs Reviewed: Yes - History of Present Illness HPI Narrative: Patient does have chronic shortness of breath but much worse today which began at home and is constant and worse with exertion the patient does have orthopnea but no weight gain. Minimal swelling lower extremities around the ankles. He does not have any numbness of the extremities, blood in the urine or stool, rhinorrhea or coughing, or fevers. Does have a heartburn feeling in his chest which is not pleuritic and does not radiate. Social history: No smoking Pain Scale: 0 - Related Data Home Medications Medication Instructions Recorded Confirmed Finasteride [Proscar] 5 mg PO DAILY 05/07/15 04/28/17 Gluc/Minh-MSM#1/C/Mac/Hima/Bor 1 tab PO BID 05/07/15 04/28/17 [Osteo Bi-Flex Caplet] Insulin ASPART [NovoLOG] 7 - 12 unit SQ TIDAC 05/07/15 04/28/17 Insulin Glargine,Hum.rec.anlog 48 unit SQ 05/07/15 04/28/17 [Lantus Solostar] Lisinopril-HCTZ 20-12.5 [Prinzide 2 tab PO DAILY 05/07/15 04/28/17 20-12.5] Metoprolol XL (24 HR) Succ [Toprol 25 mg PO DAILY 05/07/15 04/28/17 Xl] Tamsulosin [Flomax] 0.8 mg PO HS 05/07/15 04/28/17 Enoxaparin [Lovenox] 100 mg SQ BID 04/28/17 04/28/17 Famotidine [Pepcid] 20 mg PO BID PRN 04/28/17 04/28/17 Mometasone Furoate [Elocon] 15 gm TP DAILY PRN 04/28/17 04/28/17 Mv-Mn/FA/Vit K/Lycop/Lut/Coq10 1 tab PO DAILY 04/28/17 04/28/17 [Daily Multivitamin Capsule] Nitroglycerin [Nitrostat] 0.4 mg SL Q5M PRN 04/28/17 04/28/17 Polyethylene Glycol 3350 [MiraLAX] 17 gm PO DAILY 04/28/17 04/28/17 Rosuvastatin Calcium [Crestor] 5 mg PO DAILY 04/28/17 04/28/17 Warfarin [Coumadin] 2.5 mg PO SUMOTUWETHSA 04/28/17 04/28/17 Warfarin [Coumadin] 5 mg PO FR 04/28/17 04/28/17 Previous Rx's Medication Instructions Recorded Isosorbide MONOnitrate (24 HR) 30 mg PO DAILY tab.er.24h 05/07/15 [Imdur] Acetaminophen [Tylenol] 650 mg PO Q4HR PRN #0 tablet 09/08/16 OxyCODONE/APAP 10/325 [Percocet 1 each PO Q6HR PRN #24 tablet 04/28/17 10/325 MG] Allergies Allergy/AdvReac Type Severity Reaction Status Date / Time ceftriaxone [From Rocephin] AdvReac Hives Verified 04/28/17 10:12 simvastatin AdvReac Muscle Pain Verified 04/28/17 10:12 Review of Systems: Constitutional: No fever Vision: No blurred vision ENT: No rhinorrhea Respiratory: No cough Allergic: No allergies : No blood in urine GI: No blood in stool Hematologic: No bruising Dermatologic: No skin rash Musculoskeletal: No pain in the extremities Neuro: No numbness of the extremities Past Medical History - Past Medical History Medical history: Reports: arthritis, cardiomyopathy, CHF, coronary artery disease, hyperlipidemia, hypertension, kidney stones, myocardial infarction Surgical history: Reports: cataract, cholecystectomy, herniorrhaphy Psychiatric history: Reports: no psych history - Social History Smoking Status: Former smoker Smokeless Tobacco Status: No Alcohol use: Reports: none Drug use: Reports: none Physical Exam CONSTITUTIONAL: Alert and oriented X3, well-nourished, well appearing, in no apparent distress HEAD: Normocephalic; atraumatic. EYES: PERRL, no scleral icterus. NOSE: The nose is normal in appearance without rhinorrhea RESP: Normal chest excursion with respiration; breath sounds with bibasilar crackles and rhonchi CARD: Regular rhythm, without murmurs, rub or gallop ABD: Non-distended; non-tender, soft,without rigidity, rebound or guarding SKIN: Normal for age and race; warm and dry; no apparent lesions EXTREMITIES: Pulses are 2 plus and equal times 4 extremities, he does have minimal peripheral edema symmetrical around both ankles, no erythema of the lower extremities - General Limitations: no limitations General appearance: alert Course Vital Signs Temperature 98.2 F 01/05/18 17:24 Pulse Rate 98 01/05/18 17:24 Respiratory Rate 20 01/05/18 17:24 Blood Pressure 151/90 01/05/18 17:24 O2 Sat by Pulse Oximetry 97 01/05/18 17:24 Temperature 98.2 F 01/05/18 17:32 Pulse Rate 113 01/05/18 18:43 Respiratory Rate 20 01/05/18 18:43 Blood Pressure 144/91 01/05/18 18:43 O2 Sat by Pulse Oximetry 95 01/05/18 18:43 Oxygen Delivery Oxygen Delivery Room Air Medical Decision Making - MDM Narrative Medical decision making narrative: I did review the patient's CBC which is negative and I did review the chest x- ray consistent with failure with pulmonary edema the patient will be treated with nitrates, Lasix and admitted to the hospital. He is mentating well. Is here with his and daughter. 1841 I did review the patient's lab and x-ray result. I did speak with the hospitalist who will admit the patient. Patient does have congestive heart failure and he is started on nitrates and Lasix 1954 ecg with paced rhythm of 116 bpm - Medical Records Medical records reviewed: Yes I reviewed the patient's medical records. - Lab Data Lab results reviewed: Yes I reviewed the patient's lab results. Result diagrams: 01/05/18 17:38 01/05/18 17:38 Lab Results 01/05/18 01/05/18 01/05/18 Range/Units 17:38 17:38 17:38 WBC 8.0 (4.3-11.1) K/mcL RBC 4.44 (4.19-5.50) M/mcL Hgb 12.7 L (12.9-16.9) g/dL Hct 37.7 (37.5-50.1) % MCV 84.9 (83.0-100.0) fL MCH 28.6 (28.0-33.3) pg MCHC 33.7 (31.6-35.5) g/dL RDW 14.4 (11.5-14.5) % Plt Count 215 (140-400) K/mcL MPV 10.3 (9.4-12.4) fL Immature Gran % 0.4 (0-4) % Seg Neutrophils % 76.0 % Lymphocytes % 11.7 % Monocytes % 8.5 % Eosinophils % 3.0 % Basophils % 0.4 % Neutrophils # 6.1 (1.6-8.9) K/mcL Lymphocytes # 0.9 (0.6-4.6) K/mcL Monocytes # 0.7 (0.0-1.3) K/mcL Eosinophils # 0.2 (0.0-0.6) K/mcL Basophils # 0.0 (0.0-0.2) K/mcL PT (9.4-12.1) Seconds INR Sodium 129 L (136-145) mEq/L Potassium 3.0 L (3.5-5.1) mEq/L Chloride 94 L (98-107) mEq/L Carbon Dioxide 24 (23-29) mEq/L BUN 12 (8-23) mg/dL Creatinine 0.95 (0.70-1.30) mg/dL Est GFR ( Amer) > 60 (> 60) Est GFR (Non-Af Amer) > 60 (> 60) BUN/Creatinine Ratio 13 (6-26) Glucose 224 H (70-105) mg/dL Calculated Osmolality 275 L (280-300) Calcium 9.6 (8.6-10.3) mg/dL Troponin I 0.04 H* (< 0.04) ng/mL B-Natriuretic Peptide 296 H (Less than 100) pg/mL 01/05/18 Range/Units 17:38 WBC (4.3-11.1) K/mcL RBC (4.19-5.50) M/mcL Hgb (12.9-16.9) g/dL Hct (37.5-50.1) % MCV (83.0-100.0) fL MCH (28.0-33.3) pg MCHC (31.6-35.5) g/dL RDW (11.5-14.5) % Plt Count (140-400) K/mcL MPV (9.4-12.4) fL Immature Gran % (0-4) % Seg Neutrophils % % Lymphocytes % % Monocytes % % Eosinophils % % Basophils % % Neutrophils # (1.6-8.9) K/mcL Lymphocytes # (0.6-4.6) K/mcL Monocytes # (0.0-1.3) K/mcL Eosinophils # (0.0-0.6) K/mcL Basophils # (0.0-0.2) K/mcL PT 21.2 H (9.4-12.1) Seconds INR 1.9 Sodium (136-145) mEq/L Potassium (3.5-5.1) mEq/L Chloride (98-107) mEq/L Carbon Dioxide (23-29) mEq/L BUN (8-23) mg/dL Creatinine (0.70-1.30) mg/dL Est GFR ( Amer) (> 60) Est GFR (Non-Af Amer) (> 60) BUN/Creatinine Ratio (6-26) Glucose (70-105) mg/dL Calculated Osmolality (280-300) Calcium (8.6-10.3) mg/dL Troponin I (< 0.04) ng/mL B-Natriuretic Peptide (Less than 100) pg/mL - Radiology Data Radiology results reviewed: Yes I reviewed the patient's radiology results.
[2018-01-05 18:53] LABS: BUN/Creatinine Ratio 13 (6-26); Blood Urea Nitrogen 12 mg/dL (8-23); Calcium 9.6 mg/dL (8.6-10.3); Carbon Dioxide 24 mEq/L (23-29); Chloride 94 mEq/L (98-107); Glucose 224 mg/dL (70-105); Osmolality,Calculated 275 (280-300); Sodium 129 mEq/L (136-145); eGFR For Non-African Americans > 60 (> 60)
[2018-01-05 19:00] LABS: Troponin I 0.04 ng/mL (< 0.04)
[2018-01-05] MEDS ORDERED: Potassium Chloride Elixir 20 MEQ/15 ML UDC PO ONE (19:54)
[2018-01-05] MEDS ORDERED: Naloxone 0.4 MG/ML INJ IVP PRN (20:23)
[2018-01-05] MEDS ORDERED: *HR* Warfarin 2.5 MG TABLET PO SCH (20:30)
[2018-01-05] MEDS ORDERED: *HR* Enoxaparin 100 MG/ML SYRINGE SQ SCH (21:00)
[2018-01-05] MEDS ORDERED: Dextrose Gel 15 GM/37.5 ML TUBE PO PRN ×2 (21:19)
--- NOTE | 2018-01-05 21:31 | Internal Med History&Physical ---
<Rusty Carranza - Last Filed: 01/05/18 22:12> Date of Encounter: 01/05/18 Time of Encounter: 21:00 Internal Medicine - H&P: HPI Chief complaint: Shortness of Breath Admitted From: Home Plans for Post Hospital Care: Home History of present illness: Mr. Livingston is a 82 year old male with a past medical history of coronary artery disease, hyperlipidemia, hypertension, myocardial infarction, gastroesophageal reflux disease, pulmonary embolism, LV thrombus, pacemaker and defibrillator, recent herniorrhaphy. Last known EF 20% April 2017. He presented to the ED today with a chief complaint of worsening shortness of breath on exertion and orthopnea. He stated that he often has shortness of breath on exertion and orthopnea but that it is intermittent and the reason he came into the emergency department is that it is worsening. He denied chest pain associated with exertion or diaphoresis, he did admit to a substernally located heartburn-like pain associated with food and belching. In the emergency department chest x- ray showed evidence for pulmonary edema, troponin elevated at 0.04, BNP elevated at 296, EKG paced in sinus tachycardia. He was given 1 dose of topical nitroglycerin and one dose of 40 mg intravenous Lasix. On my exam the patient states he is feeling much better than when he originally presented and family in the room supports this. Physical exam was significant for wheezing and crackles on lung auscultation. Patient admitted to remote history of cigarette use 40 years ago, denied alcohol or recreational drug use. He was informed of the plan to admit, he understood and agreed Past Med Surg Social Fam HX - Past Medical History Medical history: arthritis, cardiomyopathy, CHF, coronary artery disease, hyperlipidemia, hypertension, kidney stones, myocardial infarction Additional medical history: pneumonia Psychiatric history: no psych history - Past Surgical History Surgical History: cataract, cholecystectomy, herniorrhaphy Additional surgical history: C no stents. Bi-V ICD 09/07/2016. Subdural Hematoma 08/2005 - Social History Smoking Status: Former smoker Smokeless Tobacco Status: No Alcohol use: none Drug use: none - Family History Father Adopted: No Living Status: Hx Family Cardiac Disorders: Yes Hx Family Respiratory Disorders: No Hx Family Cancer: Yes Hx Family Endocrine Disorder: No Hx Family Neuromuscular Disorders: No Hx Family Neurologic Disorders: No Hx Family HEENT Disorders: No Hx Family Autoimmune Disorders: No Brother Hx Family Cardiac Disorders: Yes (SD) Internal Medicine - H&P: Meds Finasteride [Proscar] 5 mg PO DAILY 05/07/15 [History] Gluc/Minh-MSM#1/C/Mac/Hima/Bor [Osteo Bi-Flex Caplet] 1 tab PO BID 05/07/15 [ History] Insulin Glargine,Hum.rec.anlog [Lantus Solostar] 48 unit SQ HS 05/07/15 [History ] Isosorbide MONOnitrate (24 HR) [Imdur] 30 mg PO DAILY tab.er.24h 05/07/15 [Rx] Lisinopril-HCTZ 20-12.5 [Prinzide 20-12.5] 1 tab PO BID 05/07/15 [History] Metoprolol XL (24 HR) Succ [Toprol Xl] 25 mg PO DAILY 05/07/15 [History] Tamsulosin [Flomax] 0.8 mg PO HS 05/07/15 [History] Famotidine [Pepcid] 20 mg PO BID PRN 04/28/17 [History] Mometasone Furoate [Elocon] 15 gm TP DAILY PRN 04/28/17 [History] Mv-Mn/FA/Vit K/Lycop/Lut/Coq10 [Daily Multivitamin Capsule] 1 tab PO DAILY 04/28 [History] Nitroglycerin [Nitrostat] 0.4 mg SL Q5M PRN 04/28/17 [History] Polyethylene Glycol 3350 [MiraLAX] 17 gm PO DAILY 04/28/17 [History] Rosuvastatin Calcium [Crestor] 5 mg PO DAILY 04/28/17 [History] Warfarin [Coumadin] 2.5 mg PO SUMOTUWETHFR 04/28/17 [History] Acetaminophen [Extra Strength Non-Aspirin] 500 mg PO Q6H PRN 01/05/18 [History] Insulin LISPRO [Humalog Kwikpen U-100] 7 - 12 unit SQ TID 01/05/18 [History] 3 Allergy/AdvReac Type Severity Reaction Status Date / Time ceftriaxone [From Rocephin] AdvReac Hives Verified 01/05/18 21:31 simvastatin AdvReac Muscle Pain Verified 01/05/18 21:31 All Systems PM: A 10-system review of systems was performed and is negative for pertinent findings except as documented above in the HPI. - Constitutional Constitutional: no chills, no excessive sweating, no fever(s) - Cardiovascular Cardiovascular ROS IM: dyspnea on exertion, orthopnea, no chest pain, no diaphoresis, no edema, no syncope - Respiratory Respiratory: cough, no hemoptysis, no excessive phlegm production, no change in phlegm color - Gastrointestinal Gastrointestinal: no abdominal pain, no vomiting - Musculoskeletal Musculoskeletal ROS IM: no numbness, no tingling - Neurological Neurological ROS: no abnormal speech, no focal weakness - Constitutional Vitals: Temp Pulse Resp BP Pulse Ox 98.2 F 104 18 129/78 94 01/05/18 17:32 01/05/18 20:29 01/05/18 20:29 01/05/18 20:29 01/05/18 20:29 Exam: Patient in no acute distress, alert and oriented 3 Cranial nerves II through XII intact Heart in tachycardic rate and regular rhythm, no murmur or gallop Lungs exhibited diffuse scattered wheeze and bibasilar rales on auscultation Abdomen slightly distended with slight guarding, without tenderness, normal bowel sounds present Bilateral lower extremities nonedematous Skin warm and dry Internal Med - H&P Results - Labs CBC & Chem 7: 01/05/18 17:38 01/05/18 17:38 - Assessment and plan (1) Ischemic cardiomyopathy Current Visit: No Status: Chronic Assessment and plan: Patient with complicated cardiac history including myocardial infarction and pacemaker and defibrillator placement Most recent cardiac testing demonstrated significantly decreased ejection fraction and regional wall motion abnormalities Patient also has a history of left ventricular thrombus formation Plan Continue home medications of lisinopril, Coumadin per PT, metoprolol, isosorbide mononitrate (2) Hypokalemia Current Visit: Yes Status: Acute Assessment and plan: Patient admitted with potassium of 3.0 No signs of cardiac manifestation on electrocardiogram Replaced with 40 mEq oral potassium in the emergency department Plan for repeat 40 mEq oral potassium in the a.m. with repeat BMP (3) Hyperlipidemia Current Visit: No Status: Chronic Assessment and plan: Continue home medication of rosuvastatin Qualifiers: Hyperlipidemia type: unspecified Qualified Code(s): E78.5 - Hyperlipidemia , unspecified (4) Hypertension Current Visit: No Status: Chronic Assessment and plan: History of chronic hypertension well-managed on home medications Blood pressure stable on admission Continue home medications of lisinopril, metoprolol, isosorbide mononitrate Qualifiers: Hypertension type: unspecified Qualified Code(s): I10 - Essential (primary ) hypertension (5) Hyponatremia Current Visit: Yes Status: Acute Assessment and plan: Sodium 129 on admission Likely dilutional secondary to fluid retention We will continue to monitor (6) IDDM (insulin dependent diabetes mellitus) Current Visit: No Status: Chronic Assessment and plan: Patient with chronic insulin-dependent diabetes Controlled with home medications, held here Low-dose sliding scale insulin protocol with before meals at bedtime glucose checks (7) DVT prophylaxis Current Visit: No Status: Acute Assessment and plan: Coumadin per PT (8) Acute on chronic systolic (congestive) heart failure Current Visit: Yes Status: Acute Assessment and plan: Patient with history of chronic systolic heart failure with decreased ejection fraction in acute exacerbation Last known echocardiogram ejection fraction 30-35% in July 2016 Nuclear stress test in April 2016 showed gated ejection fraction 20% Patient has internal pacemaker and defibrillator Patient presented for insidious worsening shortness of breath and orthopnea Patient denied chest pain or acute worsening of shortness of breath This is likely heart failure exacerbation secondary to fluid retention from dietary noncompliance Differentials include acute coronary syndrome or valvular abnormality. EKG showed paced sinus tachycardia, troponin elevated at 0.04, BNP elevated at 296 1 dose topical nitroglycerin and one dose 40 mg IV furosemide given in the emergency department Plan Admit with continuous cardiac monitoring Cycle troponins q6hr x 3 Diuresis with 20mg IV LAsix BID Fluid restricted diet to 2L, cardiac diet, diabetic diet Strict Is and Os Dietary education consultation - Time Spent With Patient Total time spent is greater than 50% in coordination of care (as documented) at patient's floor/unit and/or counseling patient: <Virgie Do - Last Filed: 01/05/18 23:30> Date of Encounter: 01/05/18 Internal Medicine - H&P: HPI History of present illness: Mr. Livingston is a 82 year old male All Systems PM: A 10-system review of systems was performed and is negative for pertinent findings except as documented above in the HPI. - Constitutional Vitals: Temp Pulse Resp BP Pulse Ox 98.2 F 86 18 150/87 96 09/27/18 21:42 01/05/18 21:42 01/05/18 21:42 01/05/18 21:42 01/05/18 21:42 Internal Med - H&P Results - Labs CBC & Chem 7: 01/05/18 17:38 01/05/18 17:38 - Assessment and plan (1) IDDM (insulin dependent diabetes mellitus) Current Visit: No Status: Chronic (2) DVT prophylaxis Current Visit: No Status: Acute (3) Ischemic cardiomyopathy Current Visit: No Status: Chronic (4) Hyponatremia Current Visit: Yes Status: Acute (5) Hypokalemia Current Visit: Yes Status: Acute (6) Hyperlipidemia Current Visit: No Status: Chronic Qualifiers: Hyperlipidemia type: unspecified Qualified Code(s): E78.5 - Hyperlipidemia , unspecified (7) Hypertension Current Visit: No Status: Chronic Qualifiers: Hypertension type: unspecified Qualified Code(s): I10 - Essential (primary ) hypertension (8) Acute on chronic systolic (congestive) heart failure Current Visit: Yes Status: Acute - Time Spent With Patient Total time spent is greater than 50% in coordination of care (as documented) at patient's floor/unit and/or counseling patient: - Attending Attestation Mr. Livingston is an 82-year-old male with a history of coronary artery disease, heart failure with reduced ejection fraction status post AICD who also has an LV thrombus and is currently on chronic anticoagulation who presents now with a complaint of increasing shortness of breath over the last few days. He denies any chest pain per se but says that shortness of breath has been somewhat debilitating. s reports his had adherence to medications however his dietary habits have been for with frequent eating at fast food joints exemplified by Marilee Meneses earlier today. On arrival he was clinically and hemodynamically stable. Chest x-ray reviewed independently by me was depicted of pulmonary vascular congestion in comparison to previous studies was notably more extensive. He received 1 dose of IVP furosemide 40 mg after which he said he felt much better. He was also placed on nitroglycerin paste and received loading dose of aspirin. EKG showing a paced rhythm and laboratory depictive of troponin level of 0.04, sodium of 129 and potassium of 3.0 chloride of 94. INR is 1.9. BNP 296. Physical exam remarkable for trace pedal edema, diminished breath sounds in both lung bases. Will admit for suspected acute systolic heart failure exacerbation; elevated troponin likely in the setting of myocardial strain however will continue to trend to ensure given his risk factors. Should obtain another echo to assess EF and also evaluate the thrombus previously identified. Continue warfarin therapy. Patient states he had a mild nose bleed episode earlier this week therefore will defer bridging with LMWH for now as he is close to therapeutic. Supplement Joe SCHOFIELD MD.
[2018-01-05] MEDS: Furosemide 20 MG/2 ML VIAL IVP SCH (23:22)
[2018-01-05] MEDS ORDERED: *HR* Warfarin 2.5 MG TABLET PO ONE (23:30)
[2018-01-06 06:12] LABS: Basophils % 0.5 %; Eosinophils # 0.1 K/mcL (0.0-0.6); Eosinophils % 1.5 %; Hematocrit 35.6 % (37.5-50.1); Hemoglobin 12.3 g/dL (12.9-16.9); Immature Granulocytes % 0.5 % (0-4); Lymphocytes # 1.1 K/mcL (0.6-4.6); Lymphocytes % 12.3 %; Mean Corpuscular HGB Conc 34.6 g/dL (31.6-35.5); Mean Corpuscular Hemoglobin 28.5 pg (28.0-33.3); Mean Corpuscular Volume 82.6 fL (83.0-100.0); Mean Platelet Volume 10.2 fL (9.4-12.4); Monocytes # 0.9 K/mcL (0.0-1.3); Monocytes % 9.8 %; Neutrophils # 6.6 K/mcL (1.6-8.9); Platelet Count 211 K/mcL (140-400); Red Blood Count 4.31 M/mcL (4.19-5.50); Red Cell Distribution Width 14.5 % (11.5-14.5); Segmented Neutrophils % 75.4 %
[2018-01-06 06:17] LABS: INR 1.9; Prothrombin Time 21.2 Seconds (9.4-12.1)
[2018-01-06 06:34] LABS: BUN/Creatinine Ratio 14 (6-26); Blood Urea Nitrogen 14 mg/dL (8-23); Calcium 9.4 mg/dL (8.6-10.3); Carbon Dioxide 26 mEq/L (23-29); Chloride 95 mEq/L (98-107); Glucose 282 mg/dL (70-105); Magnesium 1.6 mg/dL (1.6-2.6); Osmolality,Calculated 279 (280-300); Potassium 3.4 mEq/L (3.5-5.1); Sodium 129 mEq/L (136-145); eGFR For Non-African Americans > 60 (> 60)
[2018-01-06] MEDS ORDERED: *HR* Heparin 5,000 UNIT/ML VIAL IVP ONE (06:39)
[2018-01-06] MEDS ORDERED: *HR* Heparin 5,000 UNIT/ML VIAL IVP PRN ×2 (06:39)
--- NOTE | 2018-01-06 06:42 | Event Note ---
Date of Encounter: 01/06/18 Time of Encounter: 06:40 The patient's troponin is seen to be continually increasing in spite of an adequate clinical and hemodynamic status. He remains chest pain free and does not complain of dyspnea. Repeat EKGs show no significant changes since admission. Given the elevation, we shall start heparin gtt pending cardiology evaluation as he may require catheterization. He has gone for TTE now.
[2018-01-06] MEDS: Furosemide 20 MG/2 ML VIAL IVP SCH ×3 (07:40→17:34)
[2018-01-06] MEDS: Finasteride 5 MG TABLET PO SCH (07:41)
[2018-01-06] MEDS: Lisinopril-HCTZ 20-12.5mg TABLET PO SCH (07:41)
[2018-01-06] MEDS: Metoprolol XL (24 HR) Succ 25 MG TAB.ER.24H PO SCH (07:41)
[2018-01-06] MEDS: Isosorbide MONOnitrate (24 HR) 30 MG TAB.ER.24H PO SCH (07:41)
[2018-01-06] MEDS: Insulin LISPRO 300 UNITS/3 ML VIAL SQ SCH ×4 (07:55→21:28)
[2018-01-06] MEDS: Heparin 25,000 UNIT/500 ML D5W 25,000 UNIT/500 ML BAG IVC SCH (08:03)
[2018-01-06] MEDS: Aspirin 81 MG TAB.CHEW PO SCH (08:15)
--- NOTE | 2018-01-06 08:32 | Internal Med Progress Note ---
Hospitalist Progress Note - Encounter Date of Encounter: 01/06/18 Time of Encounter: 08:30 - Subjective Interval History: Patient evaluated at bedside, reports doing well, denies chest pain but still reports feeling slightly short of breath. He denies nausea, vomiting or abdominal pain. - Exam Vitals: Temp Pulse Resp BP Pulse Ox 97.5 F L 81 18 134/73 98 01/06/18 07:09 01/06/18 07:09 01/06/18 07:09 01/06/18 07:09 01/06/18 07:09 Exam: General: Alert and oriented x4. In no acute distress. HEENT:EOM, pupils equal, round and reactive. Cardiovascular: Irregularly irregular, Normal S1 & S2, no rubs, murmurs or gallops. JVD about 8cm. Lungs: CTA billaterally, no wheezes, rales or crackles. Abdomen: Obese, Soft, non-tender, no rigidity. NABS in all 4 quadrants. Extremities: Trace edema in the lower extremities b/l, no tenderness. Neurological: Normal cognition and motor skills. CN II-XII intact. Rest of the physical exam is non contributory - Assessment and Plan (1) NSTEMI (non-ST elevated myocardial infarction) Current Visit: Yes Status: Acute Assessment and Plan: NO chest pain. Trops of 9.78. Complains of SOB. Plan On a heparin drip Aspirin plus statin On metoprolol 25mg PO daily On an ACes and Isosorbide Will consider adding Plavix following cardioloy evaluation Cardiology has been consulted. Continue telemetry monitoring TTE ordered, (2) Ischemic cardiomyopathy Current Visit: No Status: Chronic Assessment and Plan: Plan of care as above. (3) IDDM (insulin dependent diabetes mellitus) Current Visit: No Status: Chronic Assessment and Plan: Plan Patient NPO pending cardiology evaluation After cardiology evaluation if not intervention planned, resume diabetic diet Accu-checks Q6HRs and Lispro sliding scale Will start patient on D5N% @50mls/hr for maintenance fluids as patient NPO to avoid Hypoglycemia (4) Hyponatremia Current Visit: Yes Status: Acute Assessment and Plan: Continue water restriction. Urine electrolyses (5) Hypokalemia Current Visit: Yes Status: Acute Assessment and Plan: Electrolyte has been replaced. F/U am BMP. (6) Hyperlipidemia Current Visit: No Status: Chronic Assessment and Plan: On atrovastatin 40mg/PO daily (7) Hypertension Current Visit: No Status: Chronic Assessment and Plan: Blood pressure well controlled. Continue current management, patient on multiple antihypertensive medication. (8) Acute on chronic systolic (congestive) heart failure Current Visit: Yes Status: Acute Assessment and Plan: Chest cleared to Auscultation. Patient still reports slight shortness of breath Plan Increase furosemide to 40mg/IV BID strict intake and output water restriction to 1.5 litters a day. daily weight will continue to follow cardiology recommendations Continue Lisinpril On metoprolol 25mg/PO daily. (9) DVT prophylaxis Current Visit: No Status: Acute Assessment and Plan: ON a heparin drip due to NSTEMI (10) Thrombus in heart chamber Current Visit: Yes Status: Acute Assessment and Plan: Hx of left ventricular thrombus diagnosed in 2017. Patient was on warfarin. ON full dose anticoagulation due to possible NSTEMI. - Summary of Assessment and Plan Summary of Assessment and Plan: Patient to remain hospitalized to complete Ischemic work up. - Time Spent with Patient Total time spent is greater than 50% in coordination of care (as documented) at patient's floor/unit and/or counseling patient: 25 - 35 minutes Plan of Care Discussed with: patient (and the nurse.) Internal Medicine: Result - Labs CBC & Chem 7: 01/06/18 05:51 01/06/18 05:51 Labs: Short CBC 01/06/18 Range/Units 05:51 WBC 8.8 (4.3-11.1) K/mcL Hgb 12.3 L (12.9-16.9) g/dL Hct 35.6 L (37.5-50.1) % Plt Count 211 (140-400) K/mcL Neutrophils # 6.6 (1.6-8.9) K/mcL BMP 01/06/18 05:51 Sodium 129 L Potassium 3.4 L Chloride 95 L Carbon Dioxide 26 BUN 14 Creatinine 1.02 Glucose 282 H Calcium 9.4 Cardiac Enzymes 01/06/18 01/06/18 Range/Units 00:26 05:51 Troponin I 2.11 H* 9.78 H* (< 0.04) ng/mL - ABG Interpretation ABG results: PT/INR, D-dimer PT 21.2 Seconds (9.4-12.1) H 01/06/18 05:51 Consult Discharge Plan - Plan Referrals: Bj Green MD [Primary Care Provider] - 01/11/18 11:00 am (Your appointment has been requested. Our offices will call you with an appointment time and date. ) (6) Hyperlipidemia Qualifiers: Hyperlipidemia type: unspecified Qualified Code(s): E78.5 - Hyperlipidemia, unspecified (7) Hypertension Qualifiers: Hypertension type: unspecified Qualified Code(s): I10 - Essential (primary) hypertension
[2018-01-06] MEDS ORDERED: Potassium Chloride Elixir 20 MEQ/15 ML UDC PO ONE (09:00)
[2018-01-06] MEDS ORDERED: Perflutren Lipid Microsphere 1.3 ML in 0.9 % Sodium Chloride 8.7 ML IVP ONE (09:53)
[2018-01-06] MEDS: D5% in 0.9% NACL 1,000 ML IVC SCH (12:51)
--- NOTE | 2018-01-06 12:53 | Cardiology Consult Note ---
<Fantasma Ortiz Delia - Last Filed: 01/06/18 13:37> Date of Encounter: 01/06/18 Time of Encounter: 12:50 Assessment and Plan (1) NSTEMI (non-ST elevated myocardial infarction) Current Visit: Yes Status: Acute Troponin 0.04, 2.11, 9.78. Presented with CC dyspnea, orthopnea. Denies chest pain. Known CAD hx without intervention. [facility] 2015 severe 3V CAD, heavily calcified vessels, TYPING SECTION CHIEF mLAD. Known ICMP EF 30-35% on TTE 07/2016 with LV thrombus on Coumadin. INR 1.9--currently on heparin gtt. TTE to re-evaluate EF and thrombus presence. Anticipate LHC will be recommended, but need to review prior films with interventionalist and with general cardiology-Dr. Pitt. Continue to follow. Continue ASA, Statin, BB, Imdur. If LHC is recommended, will need to hold Coumadin and wait until INR is in acceptable range. 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 On Coumadin, INR 1.9--bridging with heparin gtt currently. Recheck TTE. If LV thrombus has resolved, will plan to stop Coumadin. (3) CAD (coronary artery disease) Current Visit: No Status: Chronic As above. ASA, Statin, BB, Nitrates. Qualifiers: Coronary Disease-Associated Artery/Lesion type: [place] artery [place] vs. transplanted heart: [place] heart Associated angina: without angina Qualified Code(s): I25.10 - Atherosclerotic heart disease of [place] coronary artery without angina pectoris (4) Ischemic cardiomyopathy Current Visit: No Status: Chronic Known EF 30-35% on TTE 07/2016. ICD in place. (5) Acute on chronic systolic (congestive) heart failure Current Visit: Yes Status: Acute BNP only 296, but evidence of edema on CXR and symptoms consistent with acute on chronic systolic CHF exacerbation. Known EF 30-35% 07/2016. ICD in place. Admits to worsening dyspnea, LE edema, orthopnea. Also admits to noncompliance with Na and fluid restriction. Agree with IV diuresis--40mg IV Lasix BID. Recommend strict I/Os, Na and fluid restriction, daily weights. Discussion w patient/family: The assessment and plan as outlined above was discussed with the patient and/or family members who expressed understanding and agreement. All questions were answered. Thank you for involving us in the care of your patient. Please call with any questions. I will discuss all the above with Dr. Pitt and make changes as necessary. History of Present Illness Consult date: 01/06/18 Consult reason: NSTEMI Chief complaint: dyspnea History of present illness: Mr. Livingston is a 82 year old male with PMH of CAD, HLD, HTN myocardial infarction , GERD, LV thrombus on Coumadin, ICMP s/p ICD, recent herniorrhaphy. He presented to the ED with a chief complaint of worsening shortness of breath on exertion and orthopnea. He denies chest pain. In the emergency department chest x-ray showed evidence for pulmonary edema, BNP elevated at 296. Troponin trended --0.04, 2.11, 9.78. Cardiology consulted for further recs. Pt reports dyspnea is currently improved. Admits to being noncompliant with Na and fluid restriction. Prior CV testing: Pharmacologic nuclear stress test 04/18/17: Multiple fixed perfusion defects appear consistent with extensive infarcts. No evidence for ischemia on technically challenging study. Gated EF 22%. LV dilated. C 05/07/15: There is severe three vessel coronary artery disease. Heavily calcified vessels. TYPING SECTION CHIEF of mid LAD. There is severe LV Dysfunction EF 30%. TTE 07/13/16: Severe LV systolic dysfunction, LVEF 30-35%. There are regional wall motion abnormalities. There is a left ventricular apical thrombus. Mild asymmetric LV basal septal hypertrophy. Normal right ventricular size and function. Valvular function was not assessed on this limited study. Past Med Surg Social Fam HX - Past Medical History Medical history: arthritis, cardiomyopathy, CHF, coronary artery disease, diabetes, hyperlipidemia, hypertension, kidney stones, myocardial infarction Additional medical history: pneumonia Psychiatric history: no psych history - Past Surgical History Surgical History: cataract, cholecystectomy, herniorrhaphy Additional surgical history: [facility] no stents. Bi-V ICD 09/07/2016. Subdural Hematoma 08/2005 - Social History Smoking Status: Former smoker Smokeless Tobacco Status: No Alcohol use: none Drug use: none - Family History Father Adopted: No Living Status: Hx Family Cardiac Disorders: Yes Hx Family Respiratory Disorders: No Hx Family Cancer: Yes Hx Family Endocrine Disorder: No Hx Family Neuromuscular Disorders: No Hx Family Neurologic Disorders: No Hx Family HEENT Disorders: No Hx Family Autoimmune Disorders: No Brother Hx Family Cardiac Disorders: Yes ([place]) Medications and Allergies Finasteride [Proscar] 5 mg PO DAILY 05/07/15 [History] Gluc/Minh-MSM#1/C/Mac/Hima/Bor [Osteo Bi-Flex Caplet] 1 tab PO BID 05/07/15 [ History] Insulin Glargine,Hum.rec.anlog [Lantus Solostar] 48 unit SQ HS 05/07/15 [History ] Isosorbide MONOnitrate (24 HR) [Imdur] 30 mg PO DAILY tab.er.24h 05/07/15 [Rx] Lisinopril-HCTZ 20-12.5 [Prinzide 20-12.5] 1 tab PO BID 05/07/15 [History] Metoprolol XL (24 HR) Succ [Toprol Xl] 25 mg PO DAILY 05/07/15 [History] Tamsulosin [Flomax] 0.8 mg PO HS 05/07/15 [History] Famotidine [Pepcid] 20 mg PO BID PRN 04/28/17 [History] Mometasone Furoate [Elocon] 15 gm TP DAILY PRN 04/28/17 [History] Mv-Mn/FA/Vit K/Lycop/Lut/Coq10 [Daily Multivitamin Capsule] 1 tab PO DAILY 04/28 [History] Nitroglycerin [Nitrostat] 0.4 mg SL Q5M PRN 04/28/17 [History] Polyethylene Glycol 3350 [MiraLAX] 17 gm PO DAILY 04/28/17 [History] Rosuvastatin Calcium [Crestor] 5 mg PO DAILY 04/28/17 [History] Warfarin [Coumadin] 2.5 mg PO SUMOTUWETHFR 04/28/17 [History] Acetaminophen [Extra Strength Non-Aspirin] 500 mg PO Q6H PRN 01/05/18 [History] Insulin LISPRO [Humalog Kwikpen U-100] 7 - 12 unit SQ TID 01/05/18 [History] 3 Allergy/AdvReac Type Severity Reaction Status Date / Time ceftriaxone [From Rocephin] AdvReac Hives Verified 01/05/18 21:31 simvastatin AdvReac Muscle Pain Verified 01/05/18 21:31 All Systems Review: The remainder of the systems were reviewed and are negative - Cardiovascular Cardiovascular: as per HPI, dyspnea at rest, dyspnea on exertion, leg edema, orthopnea, paroxysmal nocturnal dyspnea - Respiratory Respiratory: dyspnea Physical Examination Vital Signs, Last 4 Hours Temp Pulse Resp BP Pulse Ox 01/06/18 11:12 97.5 F L 65 18 98/61 96 Vital Signs Temp Pulse Resp BP Pulse Ox 01/06/18 11:12 97.5 F L 65 18 98/61 96 01/06/18 07:09 97.5 F L 81 18 134/73 98 01/06/18 03:23 98.3 F 78 18 119/68 97 01/05/18 21:42 98.2 F 86 18 150/87 96 01/05/18 21:22 18 129/85 01/05/18 20:29 104 18 129/78 94 01/05/18 18:43 113 20 144/91 95 01/05/18 17:32 98.2 F 98 20 151/90 97 01/05/18 17:24 98.2 F 98 20 151/90 97 Intake and Output 01/05/18 01/06/18 01/06/18 23:59 07:59 15:59 Output Total 455 / 455 1045 / 1045 700 / 700 Balance -455 / -455 -1045 / -1045 -700 / -700 Output: Urine 455 / 455 1045 / 1045 700 / 700 Other: Weight 92.4 kg 92.2 kg Blood Glucose* 278 247 264 Patient Weight 01/06/18 23:59 Weight 92.2 kg General: Conversant, No Apparent Distress HEENT: Atraumatic, Normocephaly, Mucus Membranes Moist Neck: No JVD, Normal carotid pulses Cardiac: Reg Rate and Rhythm, Normal S1 and S2, No Murmur Lungs: Other (mild crackles) Neuro: Alert and responsive, No focal deficits noted Abdomen: Soft, Non-Tender Skin: No rashes noted on visualized skin Musculoskeletal: No Chest Wall Tenderness Extremities: No Clubbing, No Cyanosis, No Edema, Normal Pulses Results 01/06/18 05:51 01/06/18 05:51 Lab Results 01/06/18 01/06/18 01/06/18 00:26 05:51 05:51 WBC Hgb Hct Plt Count INR 1.9 Sodium Potassium Chloride Carbon Dioxide BUN Creatinine Glucose Calcium Magnesium Troponin I 2.11 H* 9.78 H* 01/06/18 01/06/18 05:51 05:51 WBC 8.8 Hgb 12.3 L Hct 35.6 L Plt Count 211 INR Sodium 129 L Potassium 3.4 L Chloride 95 L Carbon Dioxide 26 BUN 14 Creatinine 1.02 Glucose 282 H Calcium 9.4 Magnesium 1.6 Troponin I Short CBC 01/06/18 01/05/18 Range/Units 05:51 17:38 WBC 8.8 8.0 (4.3-11.1) K/mcL Hgb 12.3 L 12.7 L (12.9-16.9) g/dL Hct 35.6 L 37.7 (37.5-50.1) % Plt Count 211 215 (140-400) K/mcL Neutrophils # 6.6 6.1 (1.6-8.9) K/mcL BMP 01/06/18 01/05/18 Range/Units 05:51 17:38 Sodium 129 L 129 L (136-145) mEq/L Potassium 3.4 L 3.0 L (3.5-5.1) mEq/L Chloride 95 L 94 L (98-107) mEq/L Carbon Dioxide 26 24 (23-29) mEq/L BUN 14 12 (8-23) mg/dL Creatinine 1.02 0.95 (0.70-1.30) mg/dL Glucose 282 H 224 H (70-105) mg/dL Calcium 9.4 9.6 (8.6-10.3) mg/dL Cardiac Enzymes 01/06/18 01/06/18 01/05/18 Range/Units 05:51 00:26 17:38 Troponin I 9.78 H* 2.11 H* 0.04 H* (< 0.04) ng/mL Impressions Chest X-Ray 01/05/18 17:56 IMPRESSION: CHF and moderate pulmonary edema. D/ / Tom Saha MD / Tom Saha MD Interpreting Provider: Tom Saha MD Active Medications Acetaminophen (Tylenol) 650 mg PO Q6HR PRN PRN Reason: Mild Pain/Fever Stop: 07/07/18 20:24 Acetaminophen (Tylenol) 500 mg PO Q6H PRN PRN Reason: Pain Stop: 07/08/18 00:06 Aspirin (Aspirin) 81 mg PO DAILY COUNT INCLUDES THE [facility] Stop: 07/08/18 09:01 Last Admin: 01/06/18 08:15 Dose: 81 mg Atorvastatin Calcium (Lipitor) 10 mg PO DAILY [place] Stop: 07/08/18 09:01 Last Admin: 01/06/18 07:41 Dose: 10 mg Finasteride (Proscar) 5 mg PO DAILY [place] PRN Reason: Protocol Stop: 07/08/18 09:01 Last Admin: 01/06/18 07:41 Dose: 5 mg Furosemide (Lasix) 40 mg IVP BIDDIURETIC COUNT INCLUDES THE [facility] Stop: 07/08/18 08:44 Last Admin: 01/06/18 12:40 Dose: Not Given Glucose (Gluctose) 15 gm PO ONCE PRN PRN Reason: Hypoglycemia Stop: 07/07/18 21:20 Glucose (Gluctose) 30 gm PO ONCE PRN PRN Reason: Hypoglycemia Stop: 07/07/18 21:20 Lisinopril/HCTZ (Prinzide 20-12.5) 2 each PO DAILY COUNT INCLUDES THE [facility] Stop: 07/08/18 09:01 Last Admin: 01/06/18 07:41 Dose: 2 each Heparin Sodium (Porcine) (Heparin) 4,000 unit IVP Q6HR PRN PRN Reason: SEE COMMENTS Stop: 07/08/18 06:40 Heparin Sodium (Porcine) (Heparin) 2,000 unit IVP Q6H PRN PRN Reason: SEE COMMENTS Stop: 07/08/18 06:40 Heparin Sodium/Dextrose (Heparin 25,000 Unit/500 Ml D5w) 25,000 unit in 500 mls @ 20.284 mls/hr IVC .Q24H [place]; 11 UNIT/KG/HR PRN Reason: Protocol Stop: 07/08/18 06:46 Last Admin: 01/06/18 08:03 Dose: 11 unit/kg/hr, 20.284 mls/hr Dextrose/Sodium Chloride (D5% And 0.9% Nacl 1000 Ml) 1,000 mls @ 50 mls/hr IVC .Q20H COUNT INCLUDES THE [facility] Stop: 07/08/18 08:46 Insulin Human Lispro (Humalog) 0 units SQ HS [place] PRN Reason: Protocol Stop: 07/08/18 21:01 Insulin Human Lispro (Humalog) 0 units SQ TIDAC [place] PRN Reason: Protocol Stop: 07/08/18 07:31 Last Admin: 01/06/18 07:55 Dose: 6 unit Isosorbide Mononitrate (Imdur) 30 mg PO DAILY [place] Stop: 07/08/18 09:01 Last Admin: 01/06/18 07:41 Dose: 30 mg Metoprolol Succinate (Toprol Xl) 25 mg PO DAILY [place] Stop: 07/08/18 09:01 Last Admin: 01/06/18 07:41 Dose: 25 mg Polyethylene Glycol (Miralax) 17 gm PO DAILY [place] Stop: 07/08/18 09:01 Last Admin: 01/06/18 07:41 Dose: Not Given Tamsulosin HCl (Flomax) 0.8 mg PO HS [place] PRN Reason: Protocol Stop: 07/07/18 21:01 Last Admin: 01/05/18 23:22 Dose: 0.8 mg Warfarin Sodium (Coumadin) 2 mg PO ONCE ONE Stop: 01/06/18 18:01 - Imaging and Cardiology Echo: report reviewed Cardiac cath: report reviewed - EKG Interpretation EKG results cardiology: personally reviewed (V paced) Consult Discharge Plan - Plan Referrals: Bj Green MD [Primary Care Provider] - 01/11/18 11:00 am (Your appointment has been requested. Our offices will call you with an appointment time and date. ) <Frank Pitt - Last Filed: 01/06/18 15:44> Date of Encounter: 01/06/18 - Attending Attestation Patient was seen and evaluated independently by me. Findings, assessment and plan were discussed at length with patient, questions answered. Agree with nurse practitioner's documentation. Addition as follows, 82 yoCM ho severe calcified 3-v CAD with mLAD TYPING SECTION CHIEF L-L collaterals 2016 medical management, HFrEF EF 30% ICMP CRTD 2017 LV thrombus on warfarin. P/w progressive ROCHA. Trop 10, ECG no SOLOMON, TTE EF 30%, no LV thrombus, mLAD territory akinesis and hypokinesia, PASP 48. NAD, VSS, coarse BS bibasilar fine crackles, RR, trace LE edema A: NSTEMI, severe -3V CAD, possible close of L-L collaterals feeding mLAD HFrEF with ADHF likely due to ischemia, close to euvolemia CRTD LV thrombus resolution P: - hold warfarin, c/w heparin drip, check INR am - c/w ASA/plavix, statin - plan LHC am, NPO after M-NT - c/w BB and ACEi - I/O even Frank Pitt MD, PhD Assessment and Plan Discussion w patient/family: The assessment and plan as outlined above was discussed with the patient and/or family members who expressed understanding and agreement. All questions were answered. Thank you for involving us in the care of your patient. Please call with any questions. History of Present Illness History of present illness: Mr. Livingston is a 82 year old male All Systems Review: The remainder of the systems were reviewed and are negative Results 01/06/18 05:51 01/06/18 05:51 Lab Results 01/06/18 01/06/18 01/06/18 00:26 05:51 05:51 WBC Hgb Hct Plt Count INR 1.9 Sodium Potassium Chloride Carbon Dioxide BUN Creatinine Glucose Calcium Magnesium Troponin I 2.11 H* 9.78 H* 01/06/18 01/06/18 01/06/18 05:51 05:51 14:22 WBC 8.8 Hgb 12.3 L Hct 35.6 L Plt Count 211 INR 2.0 Sodium 129 L Potassium 3.4 L Chloride 95 L Carbon Dioxide 26 BUN 14 Creatinine 1.02 Glucose 282 H Calcium 9.4 Magnesium 1.6 Troponin I
[2018-01-06 15:03] LABS: Prothrombin Time 22.1 Seconds (9.4-12.1)
[2018-01-06] MEDS ORDERED: Warfarin perPT PO PRN (18:00)
[2018-01-06] MEDS ORDERED: *HR* Warfarin 2.5 MG TABLET PO ONE (18:00)
[2018-01-06] MEDS ORDERED: *HR* Warfarin 2 MG TABLET PO ONE (18:00)
[2018-01-06] MEDS ORDERED: *HR* Warfarin 5 MG TABLET PO SCH (20:28)
[2018-01-06] MEDS: Acetaminophen 325 MG TABLET PO PRN (22:12)
[2018-01-07 03:50] LABS: Basophils # 0.1 K/mcL (0.0-0.2); Basophils % 0.5 %; Eosinophils # 0.3 K/mcL (0.0-0.6); Eosinophils % 3.3 %; Hemoglobin 12.7 g/dL (12.9-16.9); Immature Granulocytes % 0.2 % (0-4); Immature Platelets 4.1 % (1.1-6.1); Lymphocytes # 1.2 K/mcL (0.6-4.6); Lymphocytes % 13.4 %; Mean Corpuscular HGB Conc 34.3 g/dL (31.6-35.5); Mean Corpuscular Hemoglobin 28.3 pg (28.0-33.3); Mean Corpuscular Volume 82.4 fL (83.0-100.0); Mean Platelet Volume 10.1 fL (9.4-12.4); Monocytes # 0.9 K/mcL (0.0-1.3); Monocytes % 9.4 %; Neutrophils # 6.8 K/mcL (1.6-8.9); Platelet Count 217 K/mcL (140-400); Red Blood Count 4.49 M/mcL (4.19-5.50); Red Cell Distribution Width 14.6 % (11.5-14.5); Segmented Neutrophils % 73.2 %
[2018-01-07 04:06] LABS: BUN/Creatinine Ratio 13 (6-26); Blood Urea Nitrogen 14 mg/dL (8-23); Calcium 9.5 mg/dL (8.6-10.3); Carbon Dioxide 26 mEq/L (23-29); Chloride 91 mEq/L (98-107); Glucose 261 mg/dL (70-105); Magnesium 1.4 mg/dL (1.6-2.6); Osmolality,Calculated 276 (280-300); Phosphorous 3.2 mg/dL (2.7-4.5); Potassium 3.3 mEq/L (3.5-5.1); Sodium 128 mEq/L (136-145); eGFR For Non-African Americans > 60 (> 60)
[2018-01-07] MEDS: Heparin 25,000 UNIT/500 ML D5W 25,000 UNIT/500 ML BAG IVC SCH (06:13)
[2018-01-07] MEDS: Insulin LISPRO 300 UNITS/3 ML VIAL SQ SCH ×4 (08:06→20:27)
[2018-01-07] MEDS: Furosemide 20 MG/2 ML VIAL IVP SCH (08:07)
[2018-01-07] MEDS: D5% in 0.9% NACL 1,000 ML IVC SCH (08:26)
[2018-01-07] MEDS: Finasteride 5 MG TABLET PO SCH (10:04)
[2018-01-07] MEDS: Lisinopril-HCTZ 20-12.5mg TABLET PO SCH (10:04)
[2018-01-07] MEDS: Metoprolol XL (24 HR) Succ 25 MG TAB.ER.24H PO SCH (10:04)
[2018-01-07] MEDS: Isosorbide MONOnitrate (24 HR) 30 MG TAB.ER.24H PO SCH (10:04)
[2018-01-07] MEDS: Aspirin 81 MG TAB.CHEW PO SCH (10:05)
--- NOTE | 2018-01-07 11:10 | Cardiology Progress Note ---
Date of Encounter: 01/07/18 Time of Encounter: 11:08 Assessment and Plan (1) NSTEMI (non-ST elevated myocardial infarction) Current Visit: Yes Status: Acute Troponin 0.04, 2.11, 9.78, 7.68. Presented with CC dyspnea, orthopnea. Denies chest pain. Known CAD hx without intervention. 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 Known ICMP EF 30-35% on TTE 07/2016 with LV thrombus on Coumadin. Repeat TTE yesterday EF 30%. No thrombus visualized. Severe segmental left ventricular systolic dysfunction. Mild-moderate pulmonary hypertension. Currently on heparin gtt for NSTEMI, INR 1.9 on admission but 2.0 this AM. Recheck INR and if <2, continue heparin gtt. [facility] recommended once INR allows. Currently 2.0. Will recheck in AM. Possible C tomorrow. R/B/A discussed and pt agrees. 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 On Coumadin, INR 2.0. Coumadin on hold for [facility]. Repeat TTE yesterday no LV thrombus visualized. Plan to stop Coumadin. (3) CAD (coronary artery disease) Current Visit: No Status: Chronic As above. ASA, Statin, BB, Nitrates. Qualifiers: Coronary Disease-Associated Artery/Lesion type: [place] artery [place] vs. transplanted heart: [place] heart Associated angina: without angina Qualified Code(s): I25.10 - Atherosclerotic heart disease of [place] coronary artery without angina pectoris (4) Ischemic cardiomyopathy Current Visit: No Status: Chronic Known EF 30%. ICD in place. Continue BB, ACEi. (5) Acute on chronic systolic (congestive) heart failure Current Visit: Yes Status: Acute BNP only 296, but evidence of edema on CXR and symptoms consistent with acute on chronic systolic CHF exacerbation. Now improved and appears euvolemic. Known EF 30%. ICD in place. Admits to worsening dyspnea, LE edema, orthopnea. Also admits to noncompliance with Na and fluid restriction. On IV diuresis--40mg IV Lasix BID. Switch to PO now that pt appears euvolemic. K 3.3--will replace. Recommend strict I/Os, Na and fluid restriction, daily weights. Discussion w patient/family: The assessment and plan as outlined above was discussed with the patient and/or family members who expressed understanding and agreement. All questions were answered. Thank you for involving us in the care of your patient. Please call with any questions. I will discuss all the above with Dr. Pitt and make changes as necessary. Subjective Principal diagnosis: CHF, NSTEMI Interval history: No acute cardiac complaints this AM. INR 2.0. TTE EF 30%, no evidence of LV thrombus. Troponin downtrending--last check 7.68. Objective Vital Signs, Last 4 Hours Temp Pulse Resp BP Pulse Ox 01/07/18 07:28 97.2 F L 67 16 117/69 99 General: Conversant, No Apparent Distress HEENT: Atraumatic, Normocephaly, Mucus Membranes Moist Neck: No JVD, Normal carotid pulses Cardiac: Reg Rate and Rhythm, Normal S1 and S2, No Murmur Lungs: Normal Breath Sounds, No Wheeze, Rales, Rhonchi Neuro: Alert and responsive, No focal deficits noted Abdomen: Soft, Non-Tender Skin: No rashes noted on visualized skin Musculoskeletal: No Chest Wall Tenderness Extremities: No Clubbing, No Cyanosis, No Edema, Normal Pulses Results 01/07/18 03:34 01/07/18 03:34 Lab Results 01/07/18 01/07/18 01/07/18 03:34 03:34 03:34 WBC 9.2 Hgb 12.7 L Hct 37.0 L Plt Count 217 INR 2.0 Sodium 128 L Potassium 3.3 L Chloride 91 L Carbon Dioxide 26 BUN 14 Creatinine 1.04 Glucose 261 H Calcium 9.5 Magnesium 1.4 L Short CBC 01/07/18 Range/Units 03:34 WBC 9.2 (4.3-11.1) K/mcL Hgb 12.7 L (12.9-16.9) g/dL Hct 37.0 L (37.5-50.1) % Plt Count 217 (140-400) K/mcL Neutrophils # 6.8 (1.6-8.9) K/mcL BMP 01/07/18 Range/Units 03:34 Sodium 128 L (136-145) mEq/L Potassium 3.3 L (3.5-5.1) mEq/L Chloride 91 L (98-107) mEq/L Carbon Dioxide 26 (23-29) mEq/L BUN 14 (8-23) mg/dL Creatinine 1.04 (0.70-1.30) mg/dL Glucose 261 H (70-105) mg/dL Calcium 9.5 (8.6-10.3) mg/dL Cardiac Enzymes 01/06/18 Range/Units 16:04 Troponin I 7.68 H* (< 0.04) ng/mL Impressions Echocardiogram 01/06/18 21:28 Impressions: Technically sub-optimal due to poor echocardiographic windows. LVEF 30%. Mildly dilated left ventricle. No thrombus visualized. Severe segmental left ventricular systolic dysfunction. Indeterminate diastolic function. Atypical septal motion consistent with paced rhythm. Right ventricle was not well visualized. Mild-moderate pulmonary hypertension. Estimated RVSP is 48 mmHg. A device lead was visualized in the right atrium and right ventricle. Left Ventricular Wall Motion: Rest Echo Findings The apical anterior, mid anterior, mid inferior septal, apical lateral and mid anterior septal [place] were hypokinetic. The apex, apical inferior and apical septal [place] were akinetic. All other wall segments showed normal motion. Findings: Study Quality * Technically sub-optimal due to poor echocardiographic windows. ECG Findings * Paced rhythm. Left Ventricle * LVEF 30%. * Mildly dilated left ventricle. * Severe segmental left ventricular systolic dysfunction. * Indeterminate diastolic function. * Atypical septal motion consistent with paced rhythm. Right Ventricle * Right ventricle was not well visualized. Left Atrium * Severely dilated left atrium. Right Atrium * Mildly dilated right atrium. Aortic Valve * Aortic valve not well visualized. * Grossly, mildly sclerotic aortic valve leaflets. * Trace aortic regurgitation. * No aortic stenosis. Mitral Valve * Mild mitral annular calcification * Trace mitral regurgitation. * No mitral stenosis. Tricuspid Valve * Normal tricuspid valve structure and function. * Trace tricuspid regurgitation. * Mild-moderate pulmonary hypertension. * Estimated RVSP is 48 mmHg. * Estimated RA pressure is 5 mmHg. Pulmonic Valve * Pulmonic valve is not well visualized. Aorta * Normally sized aortic root. Pericardium * The pericardium appears normal. IVC * Normal IVC dimensions and inspiratory collapse. Device lead * A device lead was visualized in the right atrium and right ventricle. Pulmonary Artery * Normal visualized portions of the main pulmonary artery. Active Medications Acetaminophen (Tylenol) 650 mg PO Q6HR PRN PRN Reason: Mild Pain/Fever Stop: 07/07/18 20:24 Last Admin: 01/06/18 22:12 Dose: 650 mg Acetaminophen (Tylenol) 500 mg PO Q6H PRN PRN Reason: Pain Stop: 07/08/18 00:06 Aspirin (Aspirin) 81 mg PO DAILY [place] Stop: 07/08/18 09:01 Last Admin: 01/07/18 10:05 Dose: 81 mg Atorvastatin Calcium (Lipitor) 10 mg PO DAILY [place] Stop: 07/08/18 09:01 Last Admin: 01/07/18 10:04 Dose: 10 mg Finasteride (Proscar) 5 mg PO DAILY [place] PRN Reason: Protocol Stop: 07/08/18 09:01 Last Admin: 01/07/18 10:04 Dose: 5 mg Furosemide (Lasix) 40 mg IVP BIDDIURETIC [facility] Stop: 07/08/18 08:44 Last Admin: 01/07/18 08:07 Dose: 40 mg Glucose (Gluctose) 15 gm PO ONCE PRN PRN Reason: Hypoglycemia Stop: 07/07/18 21:20 Glucose (Gluctose) 30 gm PO ONCE PRN PRN Reason: Hypoglycemia Stop: 07/07/18 21:20 Lisinopril/HCTZ (Prinzide 20-12.5) 2 each PO DAILY [facility] Stop: 07/08/18 09:01 Last Admin: 01/07/18 10:04 Dose: 2 each Heparin Sodium (Porcine) (Heparin) 4,000 unit IVP Q6HR PRN PRN Reason: SEE COMMENTS Stop: 07/08/18 06:40 Heparin Sodium (Porcine) (Heparin) 2,000 unit IVP Q6H PRN PRN Reason: SEE COMMENTS Stop: 07/08/18 06:40 Last Admin: 01/06/18 15:27 Dose: 2,000 unit Heparin Sodium/Dextrose (Heparin 25,000 Unit/500 Ml D5w) 25,000 unit in 500 mls @ 20.284 mls/hr IVC .Q24H [place]; 11 UNIT/KG/HR PRN Reason: Protocol Stop: 07/08/18 06:46 Last Admin: 01/07/18 06:13 Dose: 13 unit/kg/hr, 23.972 mls/hr Dextrose/Sodium Chloride (D5% And 0.9% Nacl 1000 Ml) 1,000 mls @ 50 mls/hr IVC .Q20H [place] Stop: 07/08/18 08:46 Last Admin: 01/07/18 08:26 Dose: 50 mls/hr Insulin Human Lispro (Humalog) 0 units SQ HS [place] PRN Reason: Protocol Stop: 07/08/18 21:01 Last Admin: 01/06/18 21:28 Dose: 4 units Insulin Human Lispro (Humalog) 0 units SQ TIDAC [place] PRN Reason: Protocol Stop: 07/08/18 07:31 Last Admin: 01/07/18 08:06 Dose: 8 unit Isosorbide Mononitrate (Imdur) 30 mg PO DAILY [place] Stop: 07/08/18 09:01 Last Admin: 01/07/18 10:04 Dose: 30 mg Metoprolol Succinate (Toprol Xl) 25 mg PO DAILY [facility] Stop: 07/08/18 09:01 Last Admin: 01/07/18 10:04 Dose: 25 mg Polyethylene Glycol (Miralax) 17 gm PO DAILY [place] Stop: 07/08/18 09:01 Last Admin: 01/07/18 10:05 Dose: Not Given Tamsulosin HCl (Flomax) 0.8 mg PO HS [facility] PRN Reason: Protocol Stop: 07/07/18 21:01 Last Admin: 01/06/18 21:28 Dose: 0.8 mg - Imaging and Cardiology Echo: report reviewed - EKG Interpretation EKG results cardiology: other (12 hr tele AVG HR 62, SR) Consult Discharge Plan - Plan Referrals: Bj Green MD [Primary Care Provider] - 01/11/18 11:00 am (Your appointment has been requested. Our offices will call you with an appointment time and date. )
[2018-01-07 11:42] LABS: INR 2.3; Prothrombin Time 25.8 Seconds (9.4-12.1)
--- NOTE | 2018-01-07 11:57 | Internal Med Progress Note ---
Hospitalist Progress Note - Encounter Date of Encounter: 01/07/18 Time of Encounter: 11:55 - Subjective Interval History: Pt resting and has no chest pain. - Exam Vitals: Temp Pulse Resp BP Pulse Ox 97.3 F L 61 16 110/66 97 01/07/18 11:13 01/07/18 11:13 01/07/18 11:13 01/07/18 11:13 01/07/18 11:13 Exam: General: Alert and oriented x4. In no acute distress. HEENT:EOM, pupils equal, round and reactive. Cardiovascular: Irregularly irregular, Normal S1 & S2, no rubs, murmurs or gallops. JVD about 8cm. Lungs: CTA billaterally, no wheezes, rales or crackles. Abdomen: Obese, Soft, non-tender, no rigidity. NABS in all 4 quadrants. Extremities: Trace edema in the lower extremities b/l, no tenderness. Neurological: Normal cognition and motor skills. CN II-XII intact. Rest of the physical exam is non contributory - Assessment and Plan (1) NSTEMI (non-ST elevated myocardial infarction) Current Visit: Yes Status: Acute Assessment and Plan: NO chest pain. Trops of 9.78. Complains of SOB. Plan On a heparin drip Aspirin plus statin On metoprolol 25mg PO daily On an ACes and Isosorbide Continue telemetry monitoring TTE results reviewed. [facility] planned in am. (2) Acute on chronic systolic (congestive) heart failure Current Visit: Yes Status: Acute Assessment and Plan: Chest cleared to Auscultation. Patient still reports slight shortness of breath Plan furosemide 40mg/IV BID strict intake and output water restriction to 1.5 litters a day. daily weight Continue Lisinpril On metoprolol 25mg/PO daily. (3) IDDM (insulin dependent diabetes mellitus) Current Visit: No Status: Chronic Assessment and Plan: Diabetic diet, Accu-checks and Lispro sliding scale. (4) Ischemic cardiomyopathy Current Visit: No Status: Chronic Assessment and Plan: Plan of care as above. (5) Hyponatremia Current Visit: Yes Status: Acute Assessment and Plan: Continue water restriction. Urine electrolyses (6) Hypokalemia Current Visit: Yes Status: Acute Assessment and Plan: Electrolyte has been replaced. F/U am BMP. (7) Hyperlipidemia Current Visit: No Status: Chronic Assessment and Plan: On atrovastatin 40mg/PO daily (8) Hypertension Current Visit: No Status: Chronic Assessment and Plan: Blood pressure well controlled. Continue current management, patient on multiple antihypertensive medication. (9) Thrombus in heart chamber Current Visit: Yes Status: Acute Assessment and Plan: Hx of left ventricular thrombus diagnosed in 2017. Patient was on warfarin. on full dose anticoagulation due to possible NSTEMI. repeat TTE no LV thrombus. (10) DVT prophylaxis Current Visit: No Status: Acute Assessment and Plan: ON a heparin drip due to NSTEMI - Time Spent with Patient Total time spent is greater than 50% in coordination of care (as documented) at patient's floor/unit and/or counseling patient: Greater than 35 minutes Plan of Care Discussed with: patient Internal Medicine: Result - Labs CBC & Chem 7: 01/07/18 03:34 01/07/18 03:34 Labs: Short CBC 01/07/18 Range/Units 03:34 WBC 9.2 (4.3-11.1) K/mcL Hgb 12.7 L (12.9-16.9) g/dL Hct 37.0 L (37.5-50.1) % Plt Count 217 (140-400) K/mcL Neutrophils # 6.8 (1.6-8.9) K/mcL BMP 01/07/18 03:34 Sodium 128 L Potassium 3.3 L Chloride 91 L Carbon Dioxide 26 BUN 14 Creatinine 1.04 Glucose 261 H Calcium 9.5 - ABG Interpretation ABG results: PT/INR, D-dimer PT 25.8 Seconds (9.4-12.1) H 01/07/18 11:29 - Impressions Impressions Echocardiogram 01/06/18 21:28 Impressions: Technically sub-optimal due to poor echocardiographic windows. LVEF 30%. Mildly dilated left ventricle. No thrombus visualized. Severe segmental left ventricular systolic dysfunction. Indeterminate diastolic function. Atypical septal motion consistent with paced rhythm. Right ventricle was not well visualized. Mild-moderate pulmonary hypertension. Estimated RVSP is 48 mmHg. A device lead was visualized in the right atrium and right ventricle. Left Ventricular Wall Motion: Rest Echo Findings The apical anterior, mid anterior, mid inferior septal, apical lateral and mid anterior septal [place] were hypokinetic. The apex, apical inferior and apical septal [place] were akinetic. All other wall segments showed normal motion. Findings: Study Quality * Technically sub-optimal due to poor echocardiographic windows. ECG Findings * Paced rhythm. Left Ventricle * LVEF 30%. * Mildly dilated left ventricle. * Severe segmental left ventricular systolic dysfunction. * Indeterminate diastolic function. * Atypical septal motion consistent with paced rhythm. Right Ventricle * Right ventricle was not well visualized. Left Atrium * Severely dilated left atrium. Right Atrium * Mildly dilated right atrium. Aortic Valve * Aortic valve not well visualized. * Grossly, mildly sclerotic aortic valve leaflets. * Trace aortic regurgitation. * No aortic stenosis. Mitral Valve * Mild mitral annular calcification * Trace mitral regurgitation. * No mitral stenosis. Tricuspid Valve * Normal tricuspid valve structure and function. * Trace tricuspid regurgitation. * Mild-moderate pulmonary hypertension. * Estimated RVSP is 48 mmHg. * Estimated RA pressure is 5 mmHg. Pulmonic Valve * Pulmonic valve is not well visualized. Aorta * Normally sized aortic root. Pericardium * The pericardium appears normal. IVC * Normal IVC dimensions and inspiratory collapse. Device lead * A device lead was visualized in the right atrium and right ventricle. Pulmonary Artery * Normal visualized portions of the main pulmonary artery. Consult Discharge Plan - Plan Referrals: Bj Green MD [Primary Care Provider] - 01/11/18 11:00 am (Your appointment has been requested. Our offices will call you with an appointment time and date. ) (7) Hyperlipidemia Qualifiers: Hyperlipidemia type: unspecified Qualified Code(s): E78.5 - Hyperlipidemia, unspecified (8) Hypertension Qualifiers: Hypertension type: unspecified Qualified Code(s): I10 - Essential (primary) hypertension
[2018-01-07] MEDS: Furosemide 40 MG TABLET PO SCH (17:24)
[2018-01-08] MEDS: Heparin 25,000 UNIT/500 ML D5W 25,000 UNIT/500 ML BAG IVC SCH ×2 (02:17→14:17)
[2018-01-08 03:41] LABS: Basophils # 0.1 K/mcL (0.0-0.2); Basophils % 0.7 %; Eosinophils # 0.4 K/mcL (0.0-0.6); Eosinophils % 5.6 %; Hematocrit 36.8 % (37.5-50.1); Hemoglobin 12.4 g/dL (12.9-16.9); Immature Granulocytes % 0.3 % (0-4); Lymphocytes # 1.2 K/mcL (0.6-4.6); Lymphocytes % 17.2 %; Mean Corpuscular HGB Conc 33.7 g/dL (31.6-35.5); Mean Corpuscular Hemoglobin 28.2 pg (28.0-33.3); Mean Corpuscular Volume 83.6 fL (83.0-100.0); Mean Platelet Volume 10.2 fL (9.4-12.4); Monocytes # 0.8 K/mcL (0.0-1.3); Monocytes % 11.3 %; Neutrophils # 4.5 K/mcL (1.6-8.9); Platelet Count 180 K/mcL (140-400); Red Cell Distribution Width 14.3 % (11.5-14.5); Segmented Neutrophils % 64.9 %
[2018-01-08 03:49] LABS: INR 2.2; Prothrombin Time 25.3 Seconds (9.4-12.1)
[2018-01-08 04:00] LABS: BUN/Creatinine Ratio 16 (6-26); Blood Urea Nitrogen 16 mg/dL (8-23); Calcium 9.1 mg/dL (8.6-10.3); Carbon Dioxide 28 mEq/L (23-29); Chloride 93 mEq/L (98-107); Glucose 209 mg/dL (70-105); Osmolality,Calculated 277 (280-300); Potassium 3.1 mEq/L (3.5-5.1); Sodium 130 mEq/L (136-145); eGFR For Non-African Americans > 60 (> 60)
[2018-01-08] MEDS: Aspirin 81 MG TAB.CHEW PO SCH (08:37)
[2018-01-08] MEDS: Lisinopril-HCTZ 20-12.5mg TABLET PO SCH (08:37)
[2018-01-08] MEDS: Insulin LISPRO 300 UNITS/3 ML VIAL SQ SCH ×4 (08:37→20:40)
[2018-01-08] MEDS: Finasteride 5 MG TABLET PO SCH (08:38)
[2018-01-08] MEDS: Furosemide 40 MG TABLET PO SCH ×2 (08:38→17:16)
[2018-01-08] MEDS: Isosorbide MONOnitrate (24 HR) 30 MG TAB.ER.24H PO SCH (08:38)
[2018-01-08] MEDS: Metoprolol XL (24 HR) Succ 25 MG TAB.ER.24H PO SCH (08:38)
[2018-01-08] MEDS ORDERED: Insulin DETEMIR 100 UNIT/ML X5UNITS SQ SCH (09:00)
--- NOTE | 2018-01-08 09:46 | Event Note ---
Date of Encounter: 01/08/18 Time of Encounter: 09:43 - Cardiology Event Note NSTEMI, Peak troponin 9.78. INR 2.2 this AM. Stopped heparin gtt. Check STAT INR. Discussed and reviewed with Dr. Pitt. Pt presented on 01/05 for NSTEMI, have been waiting to perform LHC until INR allows. Anticipate LHC later today after INR recheck. Will discuss INR result with Dr. Starr as well. R/B/A discussed and pt is agreeable to LHC.
[2018-01-08] MEDS ORDERED: *HR* Phytonadione 10 MG/ML AMPUL SQ ONE (09:51)
--- NOTE | 2018-01-08 09:57 | Internal Med Progress Note ---
Hospitalist Progress Note - Encounter Date of Encounter: 01/08/18 Time of Encounter: 10:00 - Subjective Interval History: Pt resting and has no chest pain. - Exam Vitals: Temp Pulse Resp BP Pulse Ox 97.6 F 67 17 130/66 97 01/08/18 06:33 01/08/18 06:33 01/08/18 06:33 01/08/18 06:33 01/08/18 06:33 Exam: General: Alert and oriented x4. In no acute distress. HEENT:EOM, pupils equal, round and reactive. Cardiovascular: Irregularly irregular, Normal S1 & S2, no rubs, murmurs or gallops. JVD about 8cm. Lungs: CTA billaterally, no wheezes, rales or crackles. Abdomen: Obese, Soft, non-tender, no rigidity. NABS in all 4 quadrants. Extremities: Trace edema in the lower extremities b/l, no tenderness. Neurological: Normal cognition and motor skills. CN II-XII intact. Rest of the physical exam is non contributory - Assessment and Plan (1) NSTEMI (non-ST elevated myocardial infarction) Current Visit: Yes Status: Acute Assessment and Plan: NO chest pain. was on heparin, INR 2.2 this morning, Heparin gtt dc'ed Aspirin plus statin On metoprolol 25mg PO daily On an ACes and Isosorbide Continue telemetry monitoring TTE results reviewed. [facility] planned in am. (2) Acute on chronic systolic (congestive) heart failure Current Visit: Yes Status: Acute Assessment and Plan: Chest cleared to Auscultation. Patient still reports slight shortness of breath Plan furosemide 40mg/IV BID strict intake and output water restriction to 1.5 litters a day. daily weight Continue Lisinopril On metoprolol 25mg/PO daily. (3) IDDM (insulin dependent diabetes mellitus) Current Visit: No Status: Chronic Assessment and Plan: Diabetic diet, Accu-checks, Levemir 15 unit BID, and Lispro sliding scale. (4) Ischemic cardiomyopathy Current Visit: No Status: Chronic Assessment and Plan: Plan of care as above. (5) Hyponatremia Current Visit: Yes Status: Acute Assessment and Plan: Continue water restriction. (6) Hypokalemia Current Visit: Yes Status: Acute Assessment and Plan: Electrolyte has been replaced. F/U am BMP. (7) Hyperlipidemia Current Visit: No Status: Chronic Assessment and Plan: On atrovastatin 40mg/PO daily (8) Hypertension Current Visit: No Status: Chronic Assessment and Plan: Blood pressure well controlled. Continue current management, patient on multiple antihypertensive medication. (9) Thrombus in heart chamber Current Visit: Yes Status: Acute Assessment and Plan: Hx of left ventricular thrombus diagnosed in 2017. Patient was on warfarin. repeat TTE no LV thrombus. Warfarin on hold, [facility] today. (10) DVT prophylaxis Current Visit: No Status: Acute Assessment and Plan: per protocol. - Time Spent with Patient Total time spent is greater than 50% in coordination of care (as documented) at patient's floor/unit and/or counseling patient: Greater than 35 minutes Plan of Care Discussed with: patient Internal Medicine: Result - Labs CBC & Chem 7: 01/08/18 03:24 01/08/18 03:24 Labs: Short CBC 01/08/18 Range/Units 03:24 WBC 7.0 (4.3-11.1) K/mcL Hgb 12.4 L (12.9-16.9) g/dL Hct 36.8 L (37.5-50.1) % Plt Count 180 (140-400) K/mcL Neutrophils # 4.5 (1.6-8.9) K/mcL BMP 01/08/18 03:24 Sodium 130 L Potassium 3.1 L Chloride 93 L Carbon Dioxide 28 BUN 16 Creatinine 1.03 Glucose 209 H Calcium 9.1 - ABG Interpretation ABG results: PT/INR, D-dimer PT 25.3 Seconds (9.4-12.1) H 01/08/18 03:24 Consult Discharge Plan - Plan Referrals: Bj Green MD [Primary Care Provider] - 01/11/18 11:00 am (Your appointment has been requested. Our offices will call you with an appointment time and date. ) (7) Hyperlipidemia Qualifiers: Hyperlipidemia type: unspecified Qualified Code(s): E78.5 - Hyperlipidemia, unspecified (8) Hypertension Qualifiers: Hypertension type: unspecified Qualified Code(s): I10 - Essential (primary) hypertension
[2018-01-08] MEDS ORDERED: ISOVUE-370 200 ML INFUS..BTL IV ONE (10:28)
[2018-01-08] MEDS ORDERED: Nitroglycerin 1,000 MCG/10 ML VIAL IV ONE (10:28)
[2018-01-08] MEDS ORDERED: 0.9 % Sodium Chloride 1,000 ML ONE ×2 (10:28→11:54)
[2018-01-08] MEDS ORDERED: *HR* Heparin 10,000 UNIT/10 ML VIAL ONE ×2 (10:28→12:45)
[2018-01-08] MEDS ORDERED: Heparin 1,000 UNITS/500 mL 500 ML ONE (10:28)
[2018-01-08 10:40] LABS: INR 1.9; Prothrombin Time 21.9 Seconds (9.4-12.1)
[2018-01-08] MEDS: Insulin DETEMIR 100 UNIT/ML X5UNITS SQ SCH ×2 (11:27→20:38)
--- NOTE | 2018-01-08 11:34 | Pre-Sedation Evaluation ---
Pre-sedation evaluation - Pre-sedation checklist Date of procedure: 01/08/18 Procedure: cardiac cath Recent Vitals: Last Vital Signs Temp 97.7 F 01/08/18 11:23 Pulse 62 01/08/18 11:23 Resp 17 01/08/18 11:23 BP 128/73 01/08/18 11:23 Pulse Ox 98 01/08/18 11:23 H&P (including ROS) documented in medical record: Yes Previous reaction to sedatives/anesthetics: No Dietary Status: NPO after Midnight Dentition: No loose teeth or bridges ASA Classification *see protocol: CLASS II-Mild systemic disease Plan of Care: Pt appropriate candidate for procedure/moderate/conscious sedation , Risks/benefits of procedure/sedation discussed w/ patient/family Cardiac Registry (Cardio Only) - Functional Capacity Functional Capacity: >=4 METS with symptoms - Clincal Frailty Scale Clinical Frailty Scale: Managing Well
[2018-01-08] MEDS ORDERED: *HR* Midazolam HCl 2 MG/2 ML VIAL ONE ×2 (12:00→12:02)
[2018-01-08] MEDS ORDERED: *HR* FentaNYL (PF) 100 MCG/2 ML VIAL ONE (12:00)
[2018-01-08] MEDS ORDERED: Verapamil 5 MG/2 ML VIAL ONE (12:03)
[2018-01-08] MEDS ORDERED: *HR* Heparin 5,000 UNIT/ML VIAL IVP PRN ×2 (13:01)
[2018-01-08 14:06] LABS: Hematocrit 35.2 % (37.5-50.1); Hemoglobin 11.8 g/dL (12.9-16.9); Mean Corpuscular HGB Conc 33.5 g/dL (31.6-35.5); Mean Corpuscular Hemoglobin 28.6 pg (28.0-33.3); Mean Corpuscular Volume 85.2 fL (83.0-100.0); Mean Platelet Volume 10.1 fL (9.4-12.4); Platelet Count 192 K/mcL (140-400); Red Blood Count 4.13 M/mcL (4.19-5.50); Red Cell Distribution Width 14.2 % (11.5-14.5)
[2018-01-08 14:11] LABS: Heparin anti-factor XA UFH 0.79 IU/mL (0.30-0.70)
[2018-01-08 14:12] LABS: INR 2.1; Prothrombin Time 23.6 Seconds (9.4-12.1)
[2018-01-08] MEDS: Acetaminophen 325 MG TABLET PO PRN (20:48)
--- NOTE | 2018-01-08 21:42 | Electrocardiograph Report ---
[place] [address] Test Date: 2018-01-05 Pat Name: Jeramie Livingston Department: EXAM8 Room: 3B23 Gender: M Primary Care Provider: : 1935 Requested By: Moses Valenzuela Order Number: [id number] Reading MD: Manoj Vazquez Measurements Intervals [place] Rate: 116 P: 0 [place]: QRS: 0 QRSD: 281 T: -61 QT: 440 QTc: 612 Interpretive Statements Ventricular-paced complexes No further analysis attempted due to paced rhythm Electronically Signed On 01-08-2018 21:40:56 EDT by Manoj Vazquez
--- NOTE | 2018-01-08 21:52 | Electrocardiograph Report ---
[address] [address] Test Date: 2018-01-06 Pat Name: Jeramie Livingston Department: 113 Room: 3B23 Gender: M [employer]: : 1935 Requested By: Rusty Carranza Order Number: [id number] Reading MD: Manoj Vazquez Measurements Intervals [place] Rate: 80 P: 79 [place]: 174 QRS: 257 QRSD: 186 T: 71 QT: 469 QTc: 506 Interpretive Statements ELECTRONIC VENTRICULAR PACEMAKER ABNORMAL RHYTHM ECG Electronically Signed On 01-08-2018 21:51:03 EDT by Manoj Vazquez
[2018-01-09 02:06] LABS: INR 1.7; Prothrombin Time 19.6 Seconds (9.4-12.1)
[2018-01-09 02:19] LABS: BUN/Creatinine Ratio 17 (6-26); Blood Urea Nitrogen 18 mg/dL (8-23); Calcium 9.5 mg/dL (8.6-10.3); Carbon Dioxide 27 mEq/L (23-29); Chloride 94 mEq/L (98-107); Glucose 129 mg/dL (70-105); Osmolality,Calculated 278 (280-300); Potassium 3.7 mEq/L (3.5-5.1); Sodium 132 mEq/L (136-145); eGFR For Non-African Americans > 60 (> 60)
[2018-01-09] MEDS: Heparin 25,000 UNIT/500 ML D5W 25,000 UNIT/500 ML BAG IVC SCH (04:12)
[2018-01-09] MEDS: Insulin LISPRO 300 UNITS/3 ML VIAL SQ SCH ×2 (08:31→11:59)
[2018-01-09] MEDS ORDERED: Isosorbide MONOnitrate (24 HR) 30 MG TAB.ER.24H PO SCH (09:30)
[2018-01-09] MEDS: Lisinopril-HCTZ 20-12.5mg TABLET PO SCH (09:56)
[2018-01-09] MEDS: Metoprolol XL (24 HR) Succ 25 MG TAB.ER.24H PO SCH (09:56)
[2018-01-09] MEDS: Furosemide 40 MG TABLET PO SCH (09:56)
[2018-01-09] MEDS: Finasteride 5 MG TABLET PO SCH (09:56)
[2018-01-09] MEDS: Aspirin 81 MG TAB.CHEW PO SCH (09:56)
[2018-01-09] MEDS: Insulin DETEMIR 100 UNIT/ML X5UNITS SQ SCH (09:56)
[2018-01-09] MEDS: Isosorbide MONOnitrate (24 HR) 30 MG TAB.ER.24H PO SCH (10:50)
--- NOTE | 2018-01-09 12:20 | Cardiology Progress Note ---
Date of Encounter: 01/09/18 Time of Encounter: 12:18 Assessment and Plan (1) NSTEMI (non-ST elevated myocardial infarction) Current Visit: Yes Status: Acute Troponin 0.04, 2.11, 9.78, 7.68. Presented with CC dyspnea, orthopnea. Denies chest pain. Repeat TTE inpt EF 30%. No thrombus visualized. Severe segmental left ventricular systolic dysfunction. Mild-moderate pulmonary hypertension. LHC yesterday-- severe 3VCAD with mid LAD PUMP INSTALLER and anteroapical akinesis ( revascularization of LAD of minimal benefit). Heavily calcified coronaries with significant mid LCx tortuosity and culprit for NSTEMI LCx/RCA. High tercile SYNTAX score. Unamenable to transradial PCI attempt (INR 1.9). EF 25-30 %. If continued symptoms consider transfemoral PCI attempt of LCx / RCA for additional guide support. Discussed medical management vs repeat LHC with attempted intervention. R/B/A discussed. Pt and prefer medical management. Continue ASA, Statin, BB, Imdur. No Plavix to avoid triple therapy. Right radial access site healing well. No bleeding, hematoma or ecchymosis noted. Restrictions discussed. Cardiology signing off. Reconsult PRN. Will coordinate outpt follow-up in 1 week. Restart Coumadin given high risk for recurrent LV thrombus. Needs Lovenox bridging per Dr. Starr until INR is therapeutic. 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 On Coumadin prior to hospitalization. Repeat TTE inpt no LV thrombus visualized. Discussed with Dr. Starr. Given his hx of LV thrombus with edgar and inferoapical akinesis with stagnant contrast in apex favor continuation of Coumadin since pt is high risk for recurrent thrombus. Goal INR 2-3. Currently 1.7, on heparin gtt. If discharged, Lovenox bridging until therapeutic-- therapeutic lovenox 90mg SQ BID. Pt states he has had to give himself Lovenox injections in the past and insurance covered it and he is comfortable doing this. (3) CAD (coronary artery disease) Current Visit: No Status: Chronic As above. ASA, Statin, BB, Nitrates. Qualifiers: Coronary Disease-Associated Artery/Lesion type: [place] artery [place] vs. transplanted heart: [place] heart Associated angina: without angina Qualified Code(s): I25.10 - Atherosclerotic heart disease of [place] coronary artery without angina pectoris (4) Ischemic cardiomyopathy Current Visit: No Status: Chronic Known EF 30%. ICD in place. Continue BB, ACEi. (5) Acute on chronic systolic (congestive) heart failure Current Visit: Yes Status: Acute BNP only 296, but evidence of edema on CXR and symptoms consistent with acute on chronic systolic CHF exacerbation. Now improved and appears euvolemic. Known EF 30%. ICD in place. Admits to worsening dyspnea, LE edema, orthopnea. Also admits to noncompliance with Na and fluid restriction. On IV diuresis--40mg IV Lasix BID. Switch to PO now that pt appears euvolemic. Recommend strict I/Os, Na and fluid restriction, daily weights. Discussion w patient/family: The assessment and plan as outlined above was discussed with the patient and/or family members who expressed understanding and agreement. All questions were answered. Thank you for involving us in the care of your patient. Please call with any questions. I will discuss all the above with Dr. Starr and make changes as necessary. Subjective Principal diagnosis: CHF, NSTEMI Interval history: No acute cardiac complaints this AM. [facility] yesterday-- severe 3VCAD with mid LAD PUMP INSTALLER and anteroapical akinesis (revascularization of LAD of minimal benefit). Heavily calcified coronaries with significant mid LCx tortuosity and culprit for NSTEMI LCx/RCA. High tercile SYNTAX score. Unamenable to transradial PCI attempt (INR 1.9). EF 25-30%. If continued symptoms consider transfemoral PCI attempt of LCx / RCA for additional guide support. Objective Vital Signs, Last 4 Hours Temp Pulse Resp BP Pulse Ox 01/09/18 10:58 98.1 F 60 18 128/65 97 Vital Signs Temp Pulse Resp BP Pulse Ox 01/09/18 10:58 98.1 F 60 18 128/65 97 01/09/18 07:06 98.1 F 60 18 125/67 98 01/09/18 02:56 97.9 F 59 17 113/50 98 01/08/18 23:12 97.9 F 60 18 112/55 100 01/08/18 19:38 98.5 F 62 17 115/63 98 01/08/18 15:35 61 14 92/60 95 01/08/18 15:05 97.6 F 60 14 90/56 96 01/08/18 14:35 60 16 93/53 98 01/08/18 14:20 60 16 94/47 95 01/08/18 14:05 97.8 F 61 14 97/52 97 01/08/18 13:35 97.6 F 62 14 117/50 97 Intake and Output 01/08/18 01/09/18 01/09/18 23:59 07:59 15:59 Intake Total 366 / 366 234 / 234 Output Total 980 / 980 300 / 300 Balance -614 / -614 234 / 234 -300 / -300 Intake: IV Fluids 366 / 366 234 / 234 Heparin 25,000 UNIT/500 ML D5W 366 / 366 134 / 134 25,000 unit In 500 ml @ 14 UNIT /KG/HR 26.124 mls/hr IVC . Q19H9M [facility] Rx#:[id number] Output: Urine 980 / 980 300 / 300 Other: Blood Glucose* 279 161 223 General: Conversant, No Apparent Distress HEENT: Atraumatic, Normocephaly, Mucus Membranes Moist Neck: No JVD, Normal carotid pulses Cardiac: Reg Rate and Rhythm, Normal S1 and S2, No Murmur Lungs: Other (diminished) Neuro: Alert and responsive, No focal deficits noted Abdomen: Soft, Non-Tender Skin: Other (right radial access site healing well. No bleeding, hematoma or ecchymosis noted.) Musculoskeletal: No Chest Wall Tenderness Extremities: No Clubbing, No Cyanosis, No Edema, Normal Pulses Results 01/08/18 13:50 01/09/18 01:47 Lab Results 01/08/18 01/08/18 01/09/18 13:50 13:50 01:47 WBC 8.2 Hgb 11.8 L Hct 35.2 L Plt Count 192 INR 2.1 1.7 Sodium Potassium Chloride Carbon Dioxide BUN Creatinine Glucose Calcium 01/09/18 01:47 WBC Hgb Hct Plt Count INR Sodium 132 L Potassium 3.7 Chloride 94 L Carbon Dioxide 27 BUN 18 Creatinine 1.07 Glucose 129 H Calcium 9.5 Short CBC 01/08/18 Range/Units 13:50 WBC 8.2 (4.3-11.1) K/mcL Hgb 11.8 L (12.9-16.9) g/dL Hct 35.2 L (37.5-50.1) % Plt Count 192 (140-400) K/mcL BMP 01/09/18 Range/Units 01:47 Sodium 132 L (136-145) mEq/L Potassium 3.7 (3.5-5.1) mEq/L Chloride 94 L (98-107) mEq/L Carbon Dioxide 27 (23-29) mEq/L BUN 18 (8-23) mg/dL Creatinine 1.07 (0.70-1.30) mg/dL Glucose 129 H (70-105) mg/dL Calcium 9.5 (8.6-10.3) mg/dL Active Medications Acetaminophen (Tylenol) 650 mg PO Q6HR PRN PRN Reason: Mild Pain/Fever Stop: 07/07/18 20:24 Last Admin: 01/08/18 20:48 Dose: 650 mg Acetaminophen (Tylenol) 500 mg PO Q6H PRN PRN Reason: Pain Stop: 07/08/18 00:06 Last Admin: 01/07/18 19:39 Dose: 500 mg Aspirin (Aspirin) 81 mg PO DAILY [facility] Stop: 07/08/18 09:01 Last Admin: 01/09/18 09:56 Dose: 81 mg Atorvastatin Calcium (Lipitor) 10 mg PO DAILY [facility] Stop: 07/08/18 09:01 Last Admin: 01/09/18 09:56 Dose: 10 mg Finasteride (Proscar) 5 mg PO DAILY [facility] PRN Reason: Protocol Stop: 07/08/18 09:01 Last Admin: 01/09/18 09:56 Dose: 5 mg Furosemide (Lasix) 40 mg PO BIDDIURETIC [place] Stop: 07/09/18 17:01 Last Admin: 01/09/18 09:56 Dose: 40 mg Glucose (Gluctose) 15 gm PO ONCE PRN PRN Reason: Hypoglycemia Stop: 07/07/18 21:20 Glucose (Gluctose) 30 gm PO ONCE PRN PRN Reason: Hypoglycemia Stop: 07/07/18 21:20 Lisinopril/HCTZ (Prinzide 20-12.5) 2 each PO DAILY [facility] Stop: 07/08/18 09:01 Last Admin: 01/09/18 09:56 Dose: 2 each Heparin Sodium (Porcine) (Heparin) 6,500 unit 70 unit/kg (6500 unit) IVP Q6HR PRN PRN Reason: SEE COMMENTS Stop: 07/10/18 13:02 Heparin Sodium (Porcine) (Heparin) 3,300 unit 35 unit/kg (3300 unit) IVP Q6H PRN PRN Reason: SEE COMMENTS Stop: 07/10/18 13:02 Heparin Sodium/Dextrose (Heparin 25,000 Unit/500 Ml D5w) 25,000 unit in 500 mls @ 26.124 mls/hr IVC .Q19H9M [place]; 14 UNIT/KG/HR PRN Reason: Protocol Stop: 07/10/18 13:16 Last Admin: 01/09/18 04:12 Dose: 14 unit/kg/hr, 26.124 mls/hr Insulin Detemir (Levemir) 15 unit SQ BID [facility] Stop: 07/10/18 10:01 Last Admin: 01/09/18 09:56 Dose: 15 unit Insulin Human Lispro (Humalog) 0 units SQ HS [facility] PRN Reason: Protocol Stop: 07/08/18 21:01 Last Admin: 01/08/18 20:40 Dose: 4 units Insulin Human Lispro (Humalog) 0 units SQ TIDAC [facility] PRN Reason: Protocol Stop: 07/08/18 07:31 Last Admin: 01/09/18 11:59 Dose: 6 unit Isosorbide Mononitrate (Imdur) 60 mg PO DAILY [facility] Stop: 07/11/18 09:31 Metoprolol Succinate (Toprol Xl) 25 mg PO DAILY [facility] Stop: 07/08/18 09:01 Last Admin: 01/09/18 09:56 Dose: 25 mg Polyethylene Glycol (Miralax) 17 gm PO DAILY [facility] Stop: 07/08/18 09:01 Last Admin: 01/09/18 10:57 Dose: Not Given Potassium Chloride (Potassium Chloride) 40 meq PO BID [facility] Stop: 07/10/18 09:01 Last Admin: 01/09/18 09:55 Dose: 40 meq Tamsulosin HCl (Flomax) 0.8 mg PO HS [facility] PRN Reason: Protocol Stop: 07/07/18 21:01 Last Admin: 01/08/18 20:38 Dose: 0.8 mg - Imaging and Cardiology Echo: report reviewed Cardiac cath: report reviewed - EKG Interpretation EKG results cardiology: other (12 hr tele aVG HR 60, paced) Consult Discharge Plan - Plan Additional Instructions: RISK FACTORS: STOP SMOKING: If you smoke, STOP. Smoking or tobacco use significantly increases your risk of heart disease because nicotine causes the arteries to narrow or constrict. It also causes fats to stick to the artery. Your chances of having a heart attack are greatly increased if you continue to smoke. For more information, call the education line for smoking cessation 7-331-DNICNFG EAT A LOW FAT/CHOLESTEROL/SODIUM DIET: This diet may help reduce your chances of having a heart attack. LIFTING: With affected extremity: Avoid bending, pushing off and lifting more than 2 pounds for 24 hours The following 48 hours, avoid lifting anything more than 5 pounds Avoid strenuous activity or repetitive motions ACTIVITY: You may walk or climb stairs as tolerated You can resume sexual activity as tolerated In general, you are encouraged to engage in a minimum of 30 minutes or more of moderate intensity physical activity, such as brisk walking, daily or at least 3 -4 times weekly BATHING Do not submerge the site into water (bath tub, hot tub, swimming pool, dishes) for 1 week. This can be a source for infection into the blood stream. You may shower after 24 hours SITE CARE: After 24 hours, you may remove the dressing and leave the site open to air. Keep the site clean and dry. Clean gently and pat dry. You can expect bruising and tenderness that gradually resolve within a week or two. Return to work as instructed per your physician Resume driving as instructed per physician Keep all scheduled follow up appointments Resume medications as instructed IMPORTANT: If prescribed a Platelet Aggregation Inhibitor such as, Plavix, Brilinta or Effient: Duration of therapy is minimum one year These medications are often used in combination with Aspirin in prevention of future heart attacks Never discontinue unless consult with your Administrative Receptionist STROKE (CVA) Risk factors for a stroke are: Age, cigarette smoking, diabetes, excessive alcohol consumption, family history, high blood pressure, overweight, physical inactivity, prior stroke, heart attack, diagnosis of carotid artery stenosis or other artery disease. Warning signs: Sudden numbness or weakness of the face, arm or leg; especially on one side of the body, sudden confusion, trouble speaking or understanding, sudden trouble seeing in one or both eyes, sudden trouble walking, dizziness, loss of balance or coordination, sudden severe headache with no cause. Call 911 or go to the Emergency Room. CONGESTIVE HEART FAILURE: If you have been diagnosed with Congestive Heart Failure (CHF) and your symptoms return, make an appointment with your physician Weigh yourself daily. Notify your physician if you have a weight gain of two or more pounds in one day or five or more pounds in one week. If you experience any difficulty breathing, please call 911 BLEEDING: Although the risk of bleeding is minimal, it can happen. If you have any bleeding from the site, apply firm pressure above the puncture site for 10-15 minutes. If the bleeding does not stop, continue manual pressure and call 911 Contact [facility] ( ) if: You develop a fever greater than 101 degrees Fahrenheit Your site becomes reddened or has any drainage You have an increase in pain or burning at the site or if a large knot forms at the site. If you experience chest pain, shortness of breath, dizziness, or extreme tiredness, stop the activity and rest. Please notify [facility] office if you experience any of these symptoms and they are not relieved by rest please call 911! Referrals: Bj Green MD [Primary Care Provider] - 01/11/18 11:00 am (Your appointment has been requested. Our offices will call you with an appointment time and date. )
--- NOTE | 2018-01-09 15:44 | Discharge Summary ---
- NOTES TO OUTPATIENT PROVIDER Notes to Outpatient Provider: f/u with cardiology within a week. f/u with PCP within a week. Orders not resulted at time of discharge: Pending orders 01/10/18 01:30 Heparin anti-factor XA UFH [COAG] Timed Date of Encounter: 01/09/18 Time of Encounter: 15:14 - Discharge Diagnosis (1) NSTEMI (non-ST elevated myocardial infarction) Priority: Primary Status: Acute (2) Acute on chronic systolic (congestive) heart failure Priority: Primary Status: Acute (3) IDDM (insulin dependent diabetes mellitus) Priority: Secondary Status: Chronic (4) Ischemic cardiomyopathy Priority: Secondary Status: Chronic (5) Hyponatremia Priority: Primary Status: Acute (6) Hypokalemia Priority: Primary Status: Acute (7) Hyperlipidemia Priority: Secondary Status: Chronic Qualifiers: Hyperlipidemia type: unspecified Qualified Code(s): E78.5 - Hyperlipidemia , unspecified (8) Hypertension Priority: Secondary Status: Chronic Qualifiers: Hypertension type: unspecified Qualified Code(s): I10 - Essential (primary ) hypertension (9) Thrombus in heart chamber Priority: Secondary Status: Chronic (10) DVT prophylaxis Priority: Primary Status: Acute Hospital course: Mr. Livingston is a 82 year old male 's past medical history of LV thrombosis, CAD, CHF, diabetes, hypertension presented with acute onset of dyspnea and orthopnea. Troponin 0.04, 2.11, 9.78, 7.68. EKG no acute ST-T change. Non- STEMI was diagnosed. Repeat TTE inpt EF 30%. No thrombus visualized. Severe segmental left ventricular systolic dysfunction. Mild-moderate pulmonary hypertension. 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 No intervention was performed due to technical difficulty. Medical management was recommended by cardiology. If continued symptoms consider transfemoral PCI attempt of LCx / RCA for additional guide support. Medical management vs repeat LHC with attempted intervention has been discussed with patient and family by cardiology. Pt and prefer medical management. She was instructed to continue taking ASA, Statin, BB, Imdur. No Plavix to avoid triple therapy. He was instructed to continue to take Coumadin, take Lovenox subcutaneous until INR reached therapeutic level. Patient will follow up with Coumadin clinic. He will also follow up with cardiology within 1 week, follow-up with PCP within one week. Discharge discussed with: patient, family Time spent discussing smoking cessation with patient: more than 10 minutes - Time Spent with Patient Total time spent providing and/or coordinating discharge services: Greater than 30 minutes - Discharge Medications Prescriptions: Enoxaparin [Lovenox] 90 mg SQ Q12HR #8 syr Aspirin 81 mg PO DAILY #30 tab.chew Furosemide [Lasix] 20 mg PO BID #60 tablet Isosorbide MONOnitrate (24 HR) [Imdur] 60 mg PO DAILY #30 tab.er.24h Lisinopril [Zestril] 40 mg PO DAILY #30 tablet Home Medications: Finasteride [Proscar] 5 mg PO DAILY 05/07/15 [History] Gluc/Minh-MSM#1/C/Mac/Hima/Bor [Osteo Bi-Flex Caplet] 1 tab PO BID 05/07/15 [ History] Insulin Glargine,Hum.rec.anlog [Lantus Solostar] 48 unit SQ HS 05/07/15 [History ] Metoprolol XL (24 HR) Succ [Toprol Xl] 25 mg PO DAILY 05/07/15 [History] Tamsulosin [Flomax] 0.8 mg PO HS 05/07/15 [History] Famotidine [Pepcid] 20 mg PO BID PRN 04/28/17 [History] Mometasone Furoate [Elocon] 15 gm TP DAILY PRN 04/28/17 [History] Mv-Mn/FA/Vit K/Lycop/Lut/Coq10 [Daily Multivitamin Capsule] 1 tab PO DAILY 04/28 [History] Nitroglycerin [Nitrostat] 0.4 mg SL Q5M PRN 04/28/17 [History] Polyethylene Glycol 3350 [MiraLAX] 17 gm PO DAILY 04/28/17 [History] Rosuvastatin Calcium [Crestor] 5 mg PO DAILY 04/28/17 [History] Warfarin [Coumadin] 2.5 mg PO SUMOTUWETHFR 04/28/17 [History] Acetaminophen [Extra Strength Non-Aspirin] 500 mg PO Q6H PRN 01/05/18 [History] Insulin LISPRO [Humalog Kwikpen U-100] 7 - 12 unit SQ TID 01/05/18 [History] Aspirin 81 mg PO DAILY #30 tab.chew 01/09/18 [Rx] Enoxaparin [Lovenox] 90 mg SQ Q12HR #8 syr 01/09/18 [Rx] Furosemide [Lasix] 20 mg PO BID #60 tablet 01/09/18 [Rx] Isosorbide MONOnitrate (24 HR) [Imdur] 60 mg PO DAILY #30 tab.er.24h 01/09/18 [ Rx] Lisinopril [Zestril] 40 mg PO DAILY #30 tablet 01/09/18 [Rx] Allergies/Adverse Reactions: 3 Allergy/AdvReac Type Severity Reaction Status Date / Time ceftriaxone [From Rocephin] AdvReac Hives Verified 01/05/18 21:31 simvastatin AdvReac Muscle Pain Verified 01/05/18 21:31 Date of admission: 01/06/18 16:38 Primary care physician: Bj Green MD Consults: 01/09/18 12:44 Consult to Cardiac Rehabilitation-Phase1 [CONS] Routine Comment: Reason for Consult: NSTEMI Call Completed: No Anticipated date of discharge: 01/09/18 - Constitutional Vitals: Temp Pulse Resp BP Pulse Ox 98.1 F 60 18 128/65 97 01/09/18 10:58 01/09/18 10:58 01/09/18 10:58 01/09/18 10:58 01/09/18 10:58 General appearance: Present: cooperative, A&O X 3, answers questions appropriately Exam: General: Alert and oriented x4. In no acute distress. HEENT:EOM, pupils equal, round and reactive. Cardiovascular: Irregularly irregular, Normal S1 & S2, no rubs, murmurs or gallops. JVD about 8cm. Lungs: CTA billaterally, no wheezes, rales or crackles. Abdomen: Obese, Soft, non-tender, no rigidity. NABS in all 4 quadrants. Extremities: Trace edema in the lower extremities b/l, no tenderness. Neurological: Normal cognition and motor skills. CN II-XII intact. Rest of the physical exam is non contributory - Patient Status Disposition: Home, Self-Care Condition: Fair Functional capacity at discharge: independent ambulation Overall status at discharge: patient is progressing back to baseline - Discharge Instructions Follow Up With: Bj Green MD [Primary Care Provider] - 01/11/18 11:00 am (Your appointment has been requested. Our offices will call you with an appointment time and date. ) Additional Instructions: RISK FACTORS: STOP SMOKING: If you smoke, STOP. Smoking or tobacco use significantly increases your risk of heart disease because nicotine causes the arteries to narrow or constrict. It also causes fats to stick to the artery. Your chances of having a heart attack are greatly increased if you continue to smoke. For more information, call the education line for smoking cessation 7-940-ZNYYSVN EAT A LOW FAT/CHOLESTEROL/SODIUM DIET: This diet may help reduce your chances of having a heart attack. LIFTING: With affected extremity: Avoid bending, pushing off and lifting more than 2 pounds for 24 hours The following 48 hours, avoid lifting anything more than 5 pounds Avoid strenuous activity or repetitive motions ACTIVITY: You may walk or climb stairs as tolerated You can resume sexual activity as tolerated In general, you are encouraged to engage in a minimum of 30 minutes or more of moderate intensity physical activity, such as brisk walking, daily or at least 3 -4 times weekly BATHING Do not submerge the site into water (bath tub, hot tub, swimming pool, dishes) for 1 week. This can be a source for infection into the blood stream. You may shower after 24 hours SITE CARE: After 24 hours, you may remove the dressing and leave the site open to air. Keep the site clean and dry. Clean gently and pat dry. You can expect bruising and tenderness that gradually resolve within a week or two. Return to work as instructed per your physician Resume driving as instructed per physician Keep all scheduled follow up appointments Resume medications as instructed IMPORTANT: If prescribed a Platelet Aggregation Inhibitor such as, Plavix, Brilinta or Effient: Duration of therapy is minimum one year These medications are often used in combination with Aspirin in prevention of future heart attacks Never discontinue unless consult with your Trade Recruiter STROKE (CVA) Risk factors for a stroke are: Age, cigarette smoking, diabetes, excessive alcohol consumption, family history, high blood pressure, overweight, physical inactivity, prior stroke, heart attack, diagnosis of carotid artery stenosis or other artery disease. Warning signs: Sudden numbness or weakness of the face, arm or leg; especially on one side of the body, sudden confusion, trouble speaking or understanding, sudden trouble seeing in one or both eyes, sudden trouble walking, dizziness, loss of balance or coordination, sudden severe headache with no cause. Call 911 or go to the Emergency Room. CONGESTIVE HEART FAILURE: If you have been diagnosed with Congestive Heart Failure (CHF) and your symptoms return, make an appointment with your physician Weigh yourself daily. Notify your physician if you have a weight gain of two or more pounds in one day or five or more pounds in one week. If you experience any difficulty breathing, please call 911 BLEEDING: Although the risk of bleeding is minimal, it can happen. If you have any bleeding from the site, apply firm pressure above the puncture site for 10-15 minutes. If the bleeding does not stop, continue manual pressure and call 911 Contact [facility] ( ) if: You develop a fever greater than 101 degrees Fahrenheit Your site becomes reddened or has any drainage You have an increase in pain or burning at the site or if a large knot forms at the site. If you experience chest pain, shortness of breath, dizziness, or extreme tiredness, stop the activity and rest. Please notify [facility] office if you experience any of these symptoms and they are not relieved by rest please call 911! - Diet and Activity Activity: increase activity as tolerated Diet: diabetic diet, low fat, low cholesterol, low salt diet
[2018-01-09 16:02] VITALS: BP 126/70
[2018-01-09] MEDS ORDERED: Warfarin perPT PO PRN (18:00)
--- NOTE | 2018-01-17 08:36 | Invasive Diagnostic Lab Proc ---
Name: Jeramie Livingston Date of Study: 01/08/2018 Date: 1935 Ht: 74.0in Medical Record#: [id number] Age: 82 Wt: 205.69lb Gender: Male BSA: 2.2 Order #: [id number] BMI: 26.4 Physicians Procedure Physician: Chano Starr MD, [facility] Referring MD: Bj Green MD Referring MD: Staff Name Position Time In Dexter Green RN Monitor 11:59 AM Alex Horner RN Travel Pt 11:59 AM George Rojo RT (R) Scrub 11:59 AM Indications Indication Non-Stemi Procedures Performed Procedure L HRT ARTERY/VENTRICLE ANGIO Pre-Procedure Checklist Informed consent is complete signed and on chart. H&P is on chart. ID band is on and ID verified with patient. Patient NPO for procedure The procedure was described for the patient and questions were answered. Blood Pressure: 128/73 ECG is on chart. Rhythm: NSR Plan of Care Patient will tolerate the procedure without complications. Adequate level of comfort will be maintained. Hemodynamics will remain stable Patient will recover from procedure without complications. Respiratory function will be maintained. Cardiac rhythm will remain stable. Patient temperature will be maintained. Patient and/or family have verbalized understanding of the procedure. Patient Education Chief Complaint/Reason for Test: Cardiac Cath Developmental Category: Geriatric (65+ years) Developmentally Appropriate for Age: Yes Learning Barriers: None Education Needs: Procedure Education Method: Verbal Information Taught: Cardiac Cath Educational Evaluation: Able to repeat information Intravenous Access Time IV Size Location DC'd Fluid/Drip Rate Units RN 11:56 AM 18g 1 /" Patent On Arrival Lt Antecubital 0.9NaCl 25 ml/hr Alex Horner RN Allergies ROCEPHIN ceftriaxone simvastatin Vital Signs Time BP (mmHg) HR (bpm) O2 Sat. RR (bpm) LOC 11:57 AM 128 / 73 62 98 % 17 5 = Fully awake and oriented or at pre-proc level 12:03 PM / % 5 = Fully awake and oriented or at pre-proc level 12:03 PM / % 4 = Oriented but drowsy 12:18 PM / % 4 = Oriented but drowsy 12:34 PM / % 4 = Oriented but drowsy 12:04 PM 153 / 78 79 98 % 13 12:09 PM 123 / 65 63 97 % 15 12:13 PM 132 / 70 74 98 % 14 12:19 PM 131 / 66 73 99 % 15 12:24 PM 131 / 66 74 99 % 16 12:29 PM 127 / 69 72 98 % 15 12:34 PM 129 / 67 72 99 % 15 12:38 PM 136 / 83 68 99 % 15 12:43 PM 146 / 94 77 99 % 16 12:49 PM 155 / 86 83 100 % 14 12:54 PM 158 / 83 78 98 % 18 Procedural Medications Time Medication Dose Units Method Given By 12:00 PM Oxygen 2 L/min nasal cannula Alex Horner RN 12:04 PM Versed 2 mg Intravenous Alex Horner RN 12:04 PM Fentanyl 50 mcg Intravenous Alex Horner RN 12:10 PM Lidocaine 2% 0.5 ml Subcutaneous Chano Starr MD, FAC 12:12 PM Heparin 4000 units Nitroglycerin 200 mcg Verapamil 2.5 mg Intraarterial Chano Starr MD, FACC 12:23 PM Nitroglycerin 200 mcg Intravenous Chaon Starr MD 12:24 PM Heparin 2000 units Intravenous Alex Horner RN 12:47 PM Heparin 1000 units Intravenous Alex Horner RN 12:11 PM Versed 1 mg Intravenous Alex Horner RN ASA Classification: CLASS II- Mild systemic disease (i.e. well-controlled diabetes, hypertension, asthma, cigarette smoking) Tabitha Score Preprocedure Postprocedure Activity 2- Moves 4 extremities sustained head lift Activity 2- Moves 4 extremities sustained head lift Circulation 2- SBP +/= 20 points of pre-anesthetic level Circulation 2- SBP +/= 20 points of pre-anesthetic level Consciousness 2- Awake and alert oriented x 3 Consciousness 2- Awake and alert oriented x 3 O2 Saturation 2- Able to maintain O2 satruation of 92% on room air O2 Saturation 2- Able to maintain O2 satruation of 92% on room air Respiratory 2- Able to deep breathe and cough well Respiratory 2- Able to deep breathe and cough well Total Score 10 Total Score 10 Contrast Agent: Isovue Diagnostic Contrast: 155 ml Total Contrast: 155 ml Fluoro Dose: 9300 mGy Activated Clotting Time Time Seconds to Clot 12:24 PM 211 12:47 PM 278 Procedure Log Time Note Enter By 11:54 AM CathStat 11:54 AM Case Start 11:59 AM Pt arrived to clinical laboratory scientist 2 at 11:54 [email or web address] 11:59 AM Green, Dexter RN Position: Monitor Time in: 11:59 csmith 11:59 AM Alex Horner RN Position: Travel Pt Time in: :59 csmith 11:59 AM George Rojo (R) Position: Scrub Time in: 11:59 csmith 11:59 AM Patient charges- Angio tray pack, Navilyst 3mm J, Pulse Oximetry and ACIST tubing and transducer csmith 11:59 AM Hair removed from procedure site in procedure lab using clippers. Right wrist & right groin prepped with Chloraprep by George Rojo (R), then patient was draped. Skin intact. csmith 11:59 AM Physician arrived :59 csmith 11:59 AM ASA Class CLASS II- Mild systemic disease (i.e. well-controlled diabetes, hypertension, asthma, cigarette smoking) csmith 11:59 AM Meet and greet completed csmith 11:59 AM Sign in performed according to hospital policy. Informed consent was obtained. csmith 11:59 AM Procedure start :59 csmith 12:00 PM Time: 12:00 Oxygen on at 2 L/min per nasal cannula by Alex Horner RN csmith 12:03 PM Vitals capture started with the following parameters, Patient=Adult, Interval=5 min, Initial Bexrtsid=043 mmHg, Deflation Rate=5 mmHg, Cuff placed on Right Arm 12:03 PM Time: 12:03 Patient comfortable and pain free: Yes csmith 12:03 PM Time: 12:03LOC: 5 = Fully awake and oriented or at pre-proc level csmith 12:04 PM Time: 12:04 Versed 2 mg Intravenous Given by Alex Horner RN csmith 12:04 PM Time: 12:04 Fentanyl 50 mcg Intravenous Given by Alex Horner RN csmith 12:04 PM HR=79 bpm, SAPH=836/78 mmhg, SpO2=98.0 %, Resp=13 B/min, Comment=paced 12:05 PM Recorded ECG: HR=75 Condition=Condition 1 12:09 PM HR=63 bpm, EPLN=859/65 mmhg, SpO2=97.0 %, Resp=15 B/min, Comment=paced 12:10 PM Time out was performed according to hospital policy. Conscious sedation and anesthesia was achieved (see medication log with in this report above) csmith 12:11 PM Time: 12:10 0.5 ml Lidocaine 2% to right radial Subcutaneous Given by Chano Starr MD, [facility] 12:11 PM Pressure channel 1 zero failed. 12:11 PM Pressure channel 1 zeroed. 12:11 PM Time: 12:49 Versed 1 mg Intravenous Given by Alex Horner RN [facility] 12:12 PM Access obtained by percutaneous puncture. 5/6Fr 11cm Terumo Glidesheath sheath placed in right Radial artery. [id number] [facility] 12:12 PM Time: 12:12 Patient given 4,000 units Heparin, 200 mcg Nitroglycerin, and 2.5 mg Verapamil Intraarterial by Chano Starr MD, [facility]. This is given to reduce risk of vessel spasm and thrombosis. [facility] PM 5Fr TIG catheter inserted over the wire [facility] 12:12 PM 0.035 260cm Navilyst 3mmJ wire [id number] [facility] 12:13 PM Recorded Pressure: Ao, HR=72, Condition=Condition 1 (Aorta) Ao 110/54/77 12:13 PM HR=74 bpm, BGJF=408/70 mmhg, SpO2=98 %, Resp=14 B/min, Comment=paced 12:14 PM LCA angiography performed in multiple views. [facility] 12[facility]14 PM Lesion found in Distal Circumflex. Pre Stenosis: 90 Pre CRISTINA Flow: 3: Complete and Brisk Flow/Perfusion [facility] 12[facility]15 PM RCA angiography performed in multiple views. [facility] 12:15 PM Coronary Dominance: right [facility] 12:16 PM Catheter removed [facility] 12:16 PM PCI Status Urgent [facility] 12:17 PM 5Fr Pigtail catheter inserted over the wire [facility] 12:18 PM Catheter crossed the aortic valve and was selectively placed in the left ventricle. Pressures recorded on pullback for left heart catheterization. Pigtail not placed in apex. [facility] 12:18 PM Pressure channel 1 zeroed. 12:18 PM Bolus angiogram of left Ventricle complete: 12 ml/sec for a total of 30 mls [facility] 12:18 PM Recorded Pressure: LV, HR=76, Condition=Condition 1 (Left Ventricle) LV 122/8/14 12:18 PM Recorded Pressure: LV, Ao, HR=74, Condition=Condition 1 (Left Ventricle) LV 134/9/21, (Aorta) Ao 131/61/89 12:18 PM Time: 12:03LOC: 4 = Oriented but drowsy csmith 12:19 PM Time: 12:03 Patient comfortable and pain free: Yes csmith 12:19 PM HR=73 bpm, MAAT=678/66 mmhg, SpO2=99 %, Resp=15 B/min, Comment=paced 12:19 PM 6Fr RBL 3.5 [place] guide catheter was used to cannulate the PCI vessel successfully. reused? No csmith 12:19 PM Inflation device was opened. csmith 12:21 PM Lesion found in Mid RCA. Pre Stenosis: 80 Pre CRISTINA Flow: 3: Complete and Brisk Flow/Perfusion csmith 12:21 PM Recorded Pressure: Ao, HR=75, Condition=Condition 1 (Aorta) Ao 131/66/92 12:22 PM .014 [place] 190cm guide wire across target lesion- successful. reused? No csmith 12:23 PM Time: 12:23 Nitroglycerin 200 mcg Intravenous Given by Chano Starr MD csmith 12:24 PM HR=74 bpm, IEJR=853/66 mmhg, SpO2=99 %, Resp=16 B/min, Comment=paced 12:24 PM At 12:24 the ACT was 211 seconds. csmith 12:24 PM 2.5 mm x 15 mm Jessy PICKERING MR cutting balloon across target lesion- successful. reused? No csmith 12:25 PM Time: 12:24 Heparin 2000 units Intravenous Given by Alex Horner RN IVP csmith 12:29 PM HR=72 bpm, JJVB=812/69 mmhg, SpO2=98 %, Resp=15 B/min, Comment=paced 12:30 PM .014 [place] 180cm guide wire across target lesion- successful. reused? No Used as a andreas wire csmith 12:34 PM HR=72 bpm, ABAD=785/67 mmhg, SpO2=99 %, Resp=15 B/min, Comment=paced 12:34 PM Time: 12:19 Patient comfortable and pain free: Yes [facility] 12[facility] PM Time: 12:18LOC: 4 = Oriented but drowsy csmith 12:38 PM Unable to pass cutting balloon on distal circumflex lesion csmith 12:38 PM both coronary wires removed csmith 12:38 PM HR=68 bpm, CTQW=334/83 mmhg, SpO2=99 %, Resp=15 B/min, Comment=paced 12:39 PM cutting balloon removed un-used csmith 12:39 PM guide catheter removed csmith 12:40 PM 6Fr HS Runway guide catheter was used to cannulate the PCI vessel successfully (RCA). reused? No csmith 12:43 PM [place] wire re- inserted csmith 12:43 PM marvel wire removed csmith 12:43 PM guide catheter removed csmith 12:43 PM HR=77 bpm, YNBG=272/94 mmhg, SpO2=99 %, Resp=16 B/min, Comment=paced 12:44 PM 6Fr JR 4 [place] Bright-Tip guide catheter was used to cannulate the PCI vessel successfully. reused? No csmith 12:45 PM ACT drawn and running csmith 12:46 PM marvel wire re-inserted csmith 12:47 PM At 12:47 the ACT was 278 seconds. csmith 12:48 PM Time: 12:47 Heparin 1000 units Intravenous Given by Alex Horner RN csmith 12:48 PM Cutting balloon 2.5*15 reinserted csmith 12:49 PM HR=83 bpm, MYZT=341/86 mmhg, DaO4=348 %, Resp=14 B/min, Comment=paced 12:49 PM Time: 12:34LOC: 4 = Oriented but drowsy csmith 12:49 PM Time: 12:34 Patient comfortable and pain free: Yes csmith 12:49 PM prowater wire reinserted as andreas wire into RCA csmith 12:52 PM both guide wires, guide and balloon removed csmith 12:54 PM HR=78 bpm, PFQW=847/83 mmhg, SpO2=98 %, Resp=18 B/min, Comment=paced 12:56 PM Procedure completed at 12:56 01/08/2018 csmith 12:56 PM Did you address CRISTINA flow and Dominance? Yes csmith 12:57 PM What is the NYHA Class? Class 2 csmith 12:57 PM Sign out completed: Radiation Dose 1726 mGy, 9300 cGy/cm2 Fluoro Time: 18.7 Isovue 370 - 200ml contrast 155 ml given by Chano Starr MD, [facility]. Complications: None. 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 Cardiac Rehab Consult needed: YesConfirmed administered medications: Yes [facility] 12[facility] PM Isovue 370 - 200ml,2 Bottle(s) used. csmith 12:57 PM Arterial sheath pulled, Vasc Band closure device used and was Successful S/N. csmith 12:57 PM 12 ml air in Vasc Band. csmith 12:58 PM Estimated Blood Loss: minimal csmith 12:58 PM Post ECG Paced csmith 12:58 PM Post Blood Pressure 158/83 csmith 12:58 PM 12:58 Post Pulses Right radial 1+ csmith 12:58 PM Information taught Cardiac Cath and Vasc Band csmith 12:58 PM Education needs Responsibilities of Patient in Care csmith 12:58 PM Learning barriers :None csmith 12:58 PM Education Methods Verbal csmith 12:58 PM Education evaluation Able to repeat information csmith 12:58 PM Site status No bleeding/hematoma - Rt Wrist as reported by George Rojo RT (R) at 12:58 csmith 12:59 PM Family placed in consult room. csmith 01:07 PM Report given to 3Brn RN Pt taken to Room #23. 13:06 csmith 01:07 PM Delay to floor No csmith 01:07 PM Lesion found in Proximal RCA. Pre Stenosis: 40 Pre CRISTINA Flow: 3: Complete and Brisk Flow/Perfusion csmith 01:07 PM Lesion found in Distal RCA. Pre Stenosis: 70 Pre CRISTINA Flow: 3: Complete and Brisk Flow/Perfusion csmith 01:08 PM Lesion found in Mid LMCA. Pre Stenosis: 40 Pre CRISTINA Flow: 3: Complete and Brisk Flow/Perfusion csmith 01:08 PM Lesion found in Mid LAD. Pre Stenosis: 100 Pre CRISTINA Flow: 0: No Flow/No perfusion csmith 01:08 PM Lesion found in Proximal Circumflex. Pre Stenosis: 30 Pre CRISTINA Flow: 3: Complete and Brisk Flow/Perfusion csmith 01:08 PM Lesion found in Mid Circumflex. Pre Stenosis: 40 Pre CRISTINA Flow: 3: Complete and Brisk Flow/Perfusion csmith 01:08 PM Lesion found in 1st Marginal. Pre Stenosis: 99 Pre CRISTINA Flow: 2: Partial Flow/Perfusion (> 1 but < 3) csmith Complications Complication None Hemodynamics Pressures Site Systolic/A Wave Diastolic/V Wave Mean AO 110 54 77 LV 122 8 14 LV 134 9 21 AO 131 61 89 AO 131 66 92 Post Procedure Information Blood Pressure: 158/83 mmHg Rhythm: Paced Post procedural instructions were given Closure Device Time Device Success/Fail 01/08/2018 12:59:00 PM Mechanical Compression Successful Site Checks Time Location Status Staff Sheath In? Note 12:58 PM Rt Wrist No bleeding/hematoma George Rojo RT (R) Pulses Time Site Pre-Procedure Post-Procedure Note 01/08/2018 11:57:00 AM Right radial 2+ 12:58:00 PM Right radial 1+ Updated by Alex Horner RN on 01/08/2018 1:16:53 PM electronically signed on 01/17/2018 8:28:34 AM with status of Final
== END 2018-01-09 17:07 | disposition home or self-care (01) | DRG 280 ==
LOC: EMEROOARM 17:21 → 3BNU 17:21 → SUATTDRO 19:25 → 3BNU 21:20
PROVIDERS: ADMIT Internal Medicine; ATTEND Internal Medicine